=== PATIENT | male | born 1960 | race Caucasian/White ===

== ENCOUNTER 2016-10-26 16:26 | Observation (INO) | payer OTHER ==
[~2016-10-26] VITALS: Ht 167.6 cm; Wt 80.4 kg
[~2016-10-26 16:26] MED LIST: ATV1 PO; BENA40TA6 PO; MULTTAB58 PO; ZNTUNK
[2016-10-26] MEDS ORDERED: MULTI-VITAMIN INFUSION INJ 10 ML, THIAMINE HCL INJ 100 MG, FoLIC ACID INJ 1 MG in SODIU... IV STA (16:48)
[2016-10-26] MEDS ORDERED: SODIUM CHLORIDE 0.9% 1000ML 1,000 ML IV STA (16:48)
--- NOTE | 2016-10-26 16:57 | EMERGENCY ROOM VISIT NOTE ---
History Report prepared by Sorin: Vy Finney Under the Supervision of: Dr. Edson Fernandez D.O. First contact with patient: 16:37 Chief Complaint: DETOX REQUEST Stated Complaint: ALCOHOL DETOX History of Present Illness The patient is a 56 year old male who presents to the Emergency Room with complaints of an alcohol detox request. He reports he went to custodial 2 days ago for a DUI and now believes he is going through alcohol withdrawal. He complains of feeling "tired and anxious". He reports he normally drinks to one fifth of vodka every 3 to 4 times a week, for the past few years. The last time he drank alcohol was 3 days ago. He has been to rehab for alcohol abuse in the past and states the last time he went to rehab was approximately 6 months ago. The patient admits to taking daily medications for hypertension, anxiety and depression. He denies any other drug use besides alcohol. He admits in the past few years he has undergone several "life changing events" and has experienced the loss of close family members and friends. He believes these life changes have brought back his desire to drink. His primary care physician is Dr. Mays and the last time he saw him was approximately 2 months ago. The patient admits to some recent "hot flashes" but denies any recent fevers. Source of History: patient Onset: [employer] Position: other (global) Quality: other (detox request) Timing: constant Associated Symptoms: No fevers Review of Systems See HPI for pertinent positives & negatives. A total of 10 systems reviewed and were otherwise negative. Past Medical & Surgical Medical Problems: (1) Anxiety (2) Dehydration (3) Depression (4) Hypertension (5) Hypotension Social History Smoking Status: Never Smoker Alcohol Use: heavy Drug Use: none Marital Status: single Housing Status: lives alone, other ([facility]) Occupation Status: unemployed Current/Historical Medications Scheduled Amlodipine (Norvasc), 5 MG PO DAILY Chlordiazepoxide (Librium), 25 MG PO UNKNOWN Citalopram Hydrobromide (Celexa), 20 MG PO DAILY Folic Acid (Folvite), 1 MG PO DAILY Magnesium Oxide (Magnesium), 400 MG PO DAILY Multiple Vitamin (Multivitamin), 1 TAB PO DAILY Terazosin (Hytrin), 5 MG PO DAILY Thiamine Hcl (Vitamin B-1), 100 MG PO DAILY Allergies Coded Allergies: No Known Allergies (Unverified , 10/26/16) Physical Exam Vital Signs Date Time Temp Pulse Resp B/P Pulse Ox O2 Delivery O2 Flow Rate FiO2 10/26/16 18:28 102 16 135/95 96 Room Air 10/26/16 17:29 107 127/90 124 111/78 129 79/64 10/26/16 17:19 116 10/26/16 16:45 118 16 131/91 96 Room Air 10/26/16 16:33 37.1 133 18 125/88 95 Room Air Physical Exam GENERAL: Patient is awake, alert, non-anxious appearing. EYES: The pupils are round and reactive. EOMI. Bilateral conjunctival injection noted. No nystagmus appreciated. EARS, NOSE, MOUTH AND THROAT: The nose is without any evidence of any deformity. Mucous membranes are moist tongue is midline NECK: The neck is nontender and supple. RESPIRATORY: Normal respiratory effort is noted there is no evidence of wheezing rhonchi or rales CARDIOVASCULAR: Heart sounds are tachycardic and regular. No definite murmur noted to auscultation. GASTROINTESTINAL: The abdomen is soft. Bowel sounds are present in all quadrants. Abdomen is nontender MUSCULOSKELETAL/EXTREMITIES: There is no evidence of gross deformity full range of motion is noted in the hips and shoulders SKIN: There is no obvious evidence of any rash. There are no petechiae, pallor or cyanosis noted. NEUROLOGIC: Patient is awake alert and oriented x3 strength is symmetric patellar reflexes are 2+ bilaterally Medical Decision & Procedures ER Provider Diagnostic Interpretation: This X-Ray was reviewed and interpreted by myself and the radiologist. SINGLE VIEW CHEST IMPRESSION: No acute cardiopulmonary abnormality. Electronically signed by: Anton Hoang M.D. 10/26/2016 5:13 PM Laboratory Results 10/26/16 17:15 Red Blood Count 4.78, Mean Corpuscular Volume 93.7, Mean Corpuscular Hemoglobin 32.0, Mean Corpuscular Hemoglobin Concent 34.2, Mean Platelet Volume 11.2, Neutrophils (%) (Auto) 81.8, Lymphocytes (%) (Auto) 9.1, Monocytes (%) (Auto) 8.8, Eosinophils (%) (Auto) 0.1, Basophils (%) (Auto) 0.0, Neutrophils # (Auto) 6.67, Lymphocytes # (Auto) 0.74, Monocytes # (Auto) 0.72, Eosinophils # (Auto) 0.01, Basophils # (Auto) 0.00 10/26/16 17:15 Test 10/26/16 17:15 White Blood Count 8.16 K/uL (4.8-10.8) Red Blood Count 4.78 M/uL (4.7-6.1) Hemoglobin 15.3 g/dL (14.0-18.0) Hematocrit 44.8 % (42-52) Mean Corpuscular Volume 93.7 fL (80-100) Mean Corpuscular Hemoglobin 32.0 pg (25-34) Mean Corpuscular Hemoglobin Concent 34.2 g/dl (32-36) Platelet Count 160 K/uL (130-400) Mean Platelet Volume 11.2 fL (7.4-10.4) Neutrophils (%) (Auto) 81.8 % Lymphocytes (%) (Auto) 9.1 % Monocytes (%) (Auto) 8.8 % Eosinophils (%) (Auto) 0.1 % Basophils (%) (Auto) 0.0 % Neutrophils # (Auto) 6.67 K/uL (1.4-6.5) Lymphocytes # (Auto) 0.74 K/uL (1.2-3.4) Monocytes # (Auto) 0.72 K/uL (0.11-0.59) Eosinophils # (Auto) 0.01 K/uL (0-0.5) Basophils # (Auto) 0.00 K/uL (0-0.2) RDW Standard Deviation 45.4 fL (36.4-46.3) RDW Coefficient of Variation 13.2 % (11.5-14.5) Immature Granulocyte % (Auto) 0.2 % Immature Granulocyte # (Auto) 0.02 K/uL (0.00-0.02) Prothrombin Time 11.4 SECONDS (9.0-12.0) Prothromb Time International Ratio 1.1 (0.9-1.1) Activated Partial Thromboplast Time 27.5 SECONDS (21.0-31.0) Partial Thromboplastin Ratio 1.1 Anion Gap 15.0 mmol/L (3-11) Est Creatinine Clear Calc Drug Dose 52.6 ml/min Estimated GFR () 55.8 Estimated GFR (Non- 48.1 BUN/Creatinine Ratio 16.4 (10-20) Calcium Level 9.6 mg/dl (8.5-10.1) Magnesium Level 2.4 mg/dl (1.8-2.4) Total Bilirubin 1.7 mg/dl (0.2-1) Direct Bilirubin 0.4 mg/dl (0-0.2) Aspartate Amino Transf (AST/SGOT) 91 U/L (15-37) Alanine Aminotransferase (ALT/SGPT) 110 U/L (12-78) Alkaline Phosphatase 135 U/L (45-117) Total Creatine Kinase 208 U/L (39-308) Creatine Kinase MB 1.3 ng/ml (0.5-3.6) Creatine Kinase MB Ratio 0.6 (0-3.0) Troponin I < 0.015 ng/ml (0-0.045) Total Protein 8.1 gm/dl (6.4-8.2) Albumin 4.3 gm/dl (3.4-5.0) Lipase 248 U/L (73-393) Salicylates Level < 1.7 mg/dl (2.8-20) Acetaminophen Level < 2 ug/ml (10-30) Ethyl Alcohol mg/dL < 3.0 mg/dl (0-3) Laboratory results per my review. Medications Administered Medications (Trade) Dose Ordered Sig/Cam Route Start Time Stop Time Status Last Admin Dose Admin Sodium Chloride 1,000 ml @ 999 mls/hr Q1H1M STAT IV 10/26/16 16:48 10/26/16 17:48 DC 10/26/16 17:35 999 MLS/HR Multivitamins/ Thiamine HCl/ Folic Acid/Sodium Chloride (Mvi Infusion Inj/Vitamin B-1 Inj/Folvite Inj/ Nss 1000ml) 1,011.2 ml @ 500 mls/ hr Q2H2M STAT IV 10/26/16 16:48 10/26/16 18:49 DC 10/26/16 17:34 500 MLS/HR ECG Indication: toxicologic (ETOH detox request) Rate (beats per minute): 117 Rhythm: sinus tachycardia Findings: no ectopy, other (No acute ST segment abnormalities) Comparison ECG Date: no prior available ED Course 7: The patient was evaluated in room B9. A complete history and physical examination were performed. 8: Multivitamins 10 ml/Thiamine HCl 100 mg/Folic Acid 1 mg/NSS 1011.2 ml @ 500 mls/hr IV, NSS 1000 ml @ 999 mls/hr IV. 1852: I discussed the patients case with Dr. Fernandez [facility] Hospitalist. The patient will be further evaluated. Medical Decision Prior records/ancillary studies reviewed and summarized above. Nursing notes reviewed. Differential diagnosis: Etiologies such as metabolic, infection, hypo/hyperglycemia, electrolyte abnormalities, cardiac sources, intracerebral event, toxicologic, neurologic, as well as others were entertained. The patient is a 56-year-old male who presented to the emergency department for an evaluation from the [facility]. The patient was recently taken into custody for DUI. He states that his last alcoholic beverage was 3 days ago. The patient was found have unstable vital signs and this was thought to be due to alcohol withdrawal. The patient was not hypertensive but was tachycardic. He had positive orthostatic vital signs. The patient was treated with IV fluids in the emergency department. He was also given a banana bag. I discussed the patient's laboratory and radiographic studies with him. I discussed his case with the on- call [facility] hospitalist group. They've agreed to evaluate the patient in the emergency department for further management and disposition. Consults Time Called: 1849 Consulting Physician: Dr. Fernandez [facility] Hospitalist Returned Call: 1852 I discussed the patients case with Dr. Fernandez [facility] Hospitalist. The patient will be further evaluated. Impression Primary Impression: Orthostatic hypotension Additional Impressions: Tachycardia JOHN (acute kidney injury) Dehydration Scribe Attestation The scribe's documentation has been prepared under my direction and personally reviewed by me in its entirety. I confirm that the note above accurately reflects all work, treatment, procedures, and medical decision making performed by me. Departure Information Dispostion Being Evaluated By Hospitalist Referrals [facility] (PCP) Patient Instructions My [facility] Health Problem Qualifiers
[2016-10-26] MEDS ORDERED: CITA20TA9 PO (17:01)
[2016-10-26] MEDS ORDERED: AMLO-110 PO (17:01)
[2016-10-26] MEDS ORDERED: CHLO25CA10 PO (17:01)
[2016-10-26] MEDS ORDERED: THIA100T11 PO (17:01)
[2016-10-26] MEDS ORDERED: MAGN1TAB41 PO (17:01)
[2016-10-26] MEDS ORDERED: TERA5CAP PO (17:01)
[2016-10-26] MEDS ORDERED: FOLI1TAB7 PO (17:01)
--- NOTE | 2016-10-26 17:14 | DIAGNOSTIC IMAGING REPORT ---
SINGLE VIEW CHEST CLINICAL HISTORY: Generalized abdominal pain. FINDINGS: An AP, portable, upright chest radiograph is obtained. No prior studies are available for comparison at the time of dictation. The examination is degraded by portable technique, apical positioning, and patient rotation. The heart is mildly enlarged. The pulmonary vasculature is noncongested. Atherosclerotic calcification is noted in the thoracic aorta. A hiatal hernia is suspected. The lungs and pleural spaces are clear. No pneumothorax is seen. The bony thorax is grossly intact. IMPRESSION: No acute cardiopulmonary abnormality. Electronically signed by: Anton Hoang M.D. 10/26/2016 5:13 PM Dictated Date/Time: 10/26/2016 5:12 PM
[2016-10-26 17:26] LABS: COMPLETE YES; EOS % 0.1 %; HEMATOCRIT 44.8 % (42-52); IG% 0.2 %; LYMPH % 9.1 %; LYMPH ABS # 0.74 K/uL (1.2-3.4); MEAN CELL VOLUME 93.7 fL (80-100); MEAN CORPUSCULAR HGB CONC 34.2 g/dl (32-36); MEAN PLATELET VOLUME 11.2 fL (7.4-10.4); MONO % 8.8 %; NEUT % 81.8 %; PLATELET COUNT 160 K/uL (130-400); RED BLOOD COUNT 4.78 M/uL (4.7-6.1); WHITE BLOOD COUNT 8.16 K/uL (4.8-10.8)
[2016-10-26 17:34] LABS: INR 1.1 (0.9-1.1); PARTIAL THROMBOPLASTIN RATIO 1.1; PROTHROMBIN TIME (PATIENT) 11.4 SECONDS (9.0-12.0)
[2016-10-26 17:46] LABS: ALT/SGPT 110 U/L (12-78); AST/SGOT 91 U/L (15-37); BLOOD UREA NITROGEN 26 mg/dl (7-18); BUN/CREATININE RATIO 16.4 (10-20); CALCIUM 9.6 mg/dl (8.5-10.1); CARBON DIOXIDE 21 mmol/L (21-32); CHLORIDE 101 mmol/L (98-107); GLUCOSE 87 mg/dl (70-99); MAGNESIUM 2.4 mg/dl (1.8-2.4); POTASSIUM 3.6 mmol/L (3.5-5.1); SODIUM 137 mmol/L (136-145)
[2016-10-26 17:49] LABS: ALKALINE PHOSPHATASE 135 U/L (45-117); CKMB/CK RATIO 0.6 (0-3.0)
[2016-10-26 18:28] LABS: ACETAMINOPHEN < 2 ug/ml (10-30)
[2016-10-26] MEDS ORDERED: ALUMINUM/MAGNESIUM/SIMETH (MAALOX MAX) 30 ML UDC PO PRN (19:15)
[2016-10-26] MEDS ORDERED: POLYETHYLENE (MIRALAX) 17 GM PACK PO PRN (19:15)
[2016-10-26] MEDS ORDERED: ONDANSETRON INJ 2 MG/ML 2 ML VIAL IV PRN (19:15)
[2016-10-26] MEDS ORDERED: MAGNESIUM HYDROXIDE SUSP 30 ML UDC PO PRN (19:15)
--- NOTE | 2016-10-26 19:23 | History and Physical ---
History & Physical Date & Time of Service: October 26, 2016 at 19:22 Chief Complaint: Alcohol Detox Primary Care Physician: J[facility] Social History Smoking Status: Never Smoker Drug Use: none Marital Status: single Occupational Status: unemployed Multi-Drug Resistant Organisms History of MDRO: No Allergies Coded Allergies: No Known Allergies (Unverified , 10/26/16) Home Medications Scheduled Amlodipine (Norvasc), 5 MG PO DAILY Chlordiazepoxide (Librium), 25 MG PO UNKNOWN Citalopram Hydrobromide (Celexa), 20 MG PO DAILY Folic Acid (Folvite), 1 MG PO DAILY Magnesium Oxide (Magnesium), 400 MG PO DAILY Multiple Vitamin (Multivitamin), 1 TAB PO DAILY Terazosin (Hytrin), 5 MG PO DAILY Thiamine Hcl (Vitamin B-1), 100 MG PO DAILY Physical Exam Vital Signs Date Time Temp Pulse Resp B/P Pulse Ox O2 Delivery O2 Flow Rate FiO2 10/26/16 18:28 102 16 135/95 96 Room Air 10/26/16 17:29 107 127/90 124 111/78 129 79/64 10/26/16 17:19 116 10/26/16 16:45 118 16 131/91 96 Room Air 10/26/16 16:33 37.1 133 18 125/88 95 Room Air Diagnostics Laboratory Results Results Past 24 Hours Test 10/26/16 17:15 Range/Units White Blood Count 8.16 4.8-10.8 K/uL Red Blood Count 4.78 4.7-6.1 M/uL Hemoglobin 15.3 14.0-18.0 g/dL Hematocrit 44.8 42-52 % Mean Corpuscular Volume 93.7 80-100 fL Mean Corpuscular Hemoglobin 32.0 25-34 pg Mean Corpuscular Hemoglobin Concent 34.2 32-36 g/dl Platelet Count 160 130-400 K/uL Mean Platelet Volume 11.2 7.4-10.4 fL Neutrophils (%) (Auto) 81.8 % Lymphocytes (%) (Auto) 9.1 % Monocytes (%) (Auto) 8.8 % Eosinophils (%) (Auto) 0.1 % Basophils (%) (Auto) 0.0 % Neutrophils # (Auto) 6.67 1.4-6.5 K/uL Lymphocytes # (Auto) 0.74 1.2-3.4 K/uL Monocytes # (Auto) 0.72 0.11-0.59 K/uL Eosinophils # (Auto) 0.01 0-0.5 K/uL Basophils # (Auto) 0.00 0-0.2 K/uL RDW Standard Deviation 45.4 36.4-46.3 fL RDW Coefficient of Variation 13.2 11.5-14.5 % Immature Granulocyte % (Auto) 0.2 % Immature Granulocyte # (Auto) 0.02 0.00-0.02 K/uL Prothrombin Time 11.4 9.0-12.0 SECONDS Prothromb Time International Ratio 1.1 0.9-1.1 Activated Partial Thromboplast Time 27.5 21.0-31.0 SECONDS Partial Thromboplastin Ratio 1.1 Sodium Level 137 136-145 mmol/L Potassium Level 3.6 3.5-5.1 mmol/L Chloride Level 101 98-107 mmol/L Carbon Dioxide Level 21 21-32 mmol/L Anion Gap 15.0 3-11 mmol/L Blood Urea Nitrogen 26 7-18 mg/dl Creatinine 1.60 0.60-1.40 mg/dl Est Creatinine Clear Calc Drug Dose 52.6 ml/min Estimated GFR () 55.8 Estimated GFR (Non- 48.1 BUN/Creatinine Ratio 16.4 10-20 Random Glucose 87 70-99 mg/dl Calcium Level 9.6 8.5-10.1 mg/dl Magnesium Level 2.4 1.8-2.4 mg/dl Total Bilirubin 1.7 0.2-1 mg/dl Direct Bilirubin 0.4 0-0.2 mg/dl Aspartate Amino Transf (AST/SGOT) 91 15-37 U/L Alanine Aminotransferase (ALT/SGPT) 110 12-78 U/L Alkaline Phosphatase 135 45-117 U/L Total Creatine Kinase 208 39-308 U/L Creatine Kinase MB 1.3 0.5-3.6 ng/ml Creatine Kinase MB Ratio 0.6 0-3.0 Troponin I < 0.015 0-0.045 ng/ml Total Protein 8.1 6.4-8.2 gm/dl Albumin 4.3 3.4-5.0 gm/dl Lipase 248 73-393 U/L Salicylates Level < 1.7 2.8-20 mg/dl Acetaminophen Level < 2 10-30 ug/ml Ethyl Alcohol mg/dL < 3.0 0-3 mg/dl Impression Assessment and Plan obs #[id number] VTE Prophylaxis VTE Risk Assessment Done? Y/N: Yes Risk Level: Moderate
[2016-10-26] MEDS ORDERED: IV FLUIDS COMPLETED PRN (19:30)
[2016-10-26 20:10] VITALS: O2SAT 96
--- NOTE | 2016-10-26 20:32 | HISTORY & PHYSICAL EXAMINATION ---
DATE OF ADMISSION: 10/26/2016 CHIEF COMPLAINT: Concern on alcohol withdrawal. HISTORY OF PRESENT ILLNESS: The patient is a very pleasant 56-year-old male who was sent down from [facility] because of the concern that he may be withdrawing from alcohol. He himself denies tachycardia or shakiness or tremors or anything of that sort. His last drink was about 3 days ago. However, he does note that he feels weak and lightheaded. He was apparently somewhat hypotensive earlier. He notes especially whenever he stands up, he gets lightheaded and he is very thirsty now, although apparently in large part related to acute recent stressors. He has not been eating or drinking as much the last several days as his typical and he does take several antihypertensive meds. REVIEW OF SYSTEMS: Positive for low volume, somewhat dark urine. REVIEW OF SYSTEMS: Otherwise negative except for as above. PAST MEDICAL HISTORY: Includes hypertension, anxiety and alcohol abuse. MEDICATIONS: He believes amlodipine and terazosin for his blood pressure, uncertain doses, Celexa for his depression, uncertain dose, and Ativan 1 mg tabs, he notes generally he at least takes 1 a day, up to maybe 4 a day, it is unclear exactly how long he has been on this. He notes the shelter physician was going to try to actively wean this. He notes whenever he does not take it for a while, he starts to feel more anxious. SURGICAL HISTORY: None. SOCIAL HISTORY: He is a fairly heavy drinker, last drink about 3 days ago. No tobacco, no other drugs He is currently incarcerated. FAMILY HISTORY: Cancer in both of his parents. ALLERGIES: No known drug allergies. PHYSICAL EXAMINATION: VITAL SIGNS: Temperature 37.1, pulse 133, blood pressure 125/88; however, he does drop orthostatically to as low as 79/64, respiratory rate 18, 95% on room air. GENERAL: He is awake, alert, oriented x3, pleasant, in no acute distress. HEENT: Normocephalic, atraumatic. Mucous membranes are dry. CARDIOVASCULAR: Regular. No rubs, murmurs or gallops. LUNGS: Clear to auscultation bilaterally. No rales, rhonchi or wheezes, with good effort. ABDOMEN: Soft, nondistended, nontender. No masses or organomegaly. EXTREMITIES: Without cyanosis, clubbing or edema. No calf tenderness. SKIN: Shows no rashes, no pallor or icterus. NEUROLOGIC: Shows cranial nerves II-XII to be grossly intact. Gross motor and sensory are intact. He shows no tremors. MENTAL STATE: Shows good recent and remote recall, somewhat flat, mildly anxious mood and affect. MUSCULOSKELETAL: Yields no gross lesions. His EKG was sinus tachycardia with some nonspecific T-wave abnormalities. LABORATORY AND DIAGNOSTICS: CBC shows a white count of 8.16, hemoglobin 15.3, platelets 160. Complete metabolic panel with sodium 137, potassium 3.6, chloride 101, CO2 21, BUN 26, creatinine 1.6, calcium 9.6, glucose 87, mag 2.4, total bilirubin 1.7 with a direct of 0.4, AST 91, ALT 110, alkaline phosphatase 135, CK total of 208 with an MB of 1.3, troponin of less than 0.015. Total protein 8.1, albumin 4.3. Lipase 248. PT of 11.4, PTT 27.5. Salicylates, acetaminophen and ethyl alcohol currently negative. ASSESSMENT AND PLAN: 1. Alcohol abuse. While he shows transaminitis, fortunately he is not showing any withdrawal. He is about 3 days after his last drink, so likely he is passing through the window of where it would be of much of any likelihood. We will be keeping him for the dehydration, hypotension, and renal insufficiency, and so we will observe for any worsening signs or symptoms of alcohol withdrawal. See below otherwise. 2. Dehydration with acute renal insufficiency. His baseline creatinine appears to be 1.2, it is up to 1.6. He feels very thirsty. His mucous membranes are dry. He has not been eating and drinking as well. His urine is dark and concentrated by his history. We will rehydrate him aggressively, hold his antihypertensives until he is better hydrated, and then follow up orthostatics in the morning. 3. Transaminitis is probably from his alcohol abuse. We will follow up his CMP tomorrow to make sure it is not going up and then otherwise he can be followed as an outpatient until normalization. 4. Alcohol abuse. Continue thiamine, folate, multivitamin. Again, as above, he is not really showing any active withdrawal. 5. Anxiety. Continue his Celexa. Try to continue to reduce Ativan, we will drop it 0.25 q. 6 p.r.n. I had an extensive discussion with the patient on how benzodiazepines can actually create anxiety whenever somebody has a physical dependency to them and starts to withdraw and that it feels almost exactly like anxiety. He relates an extremely similar history to this and then notes that the Ativan has been "like a miracle drug to him" but understands that it is likely that he has got a degree of withdrawal symptoms that are causing his acuity of anxiety. 6. Deep venous thrombosis prophylaxis, heparin subcu. 7. Hypertension. Hold his home meds until he is more stabilized in terms of his fluid status.
[2016-10-26 20:44] VITALS: BP 158/110; PULSE 110; TEMP 36.7; O2SAT 97
[2016-10-26] MEDS: SODIUM CHLOR 0.45% + 20MEQ KCL 1,000 ML IV SCH (22:16)
[2016-10-26] MEDS: HEPARIN SOD 5000 UNIT/0.5 ML CARP SQ SCH (22:24)
[2016-10-26] MEDS ORDERED: NURSING VERBAL MED ORDER ONE (22:45)
[2016-10-26 22:53] VITALS: BP 128/82; PULSE 86; TEMP 36.9; O2SAT 95
[2016-10-27] MEDS: LORAZEPAM 0.5 MG TAB PO PRN ×2 (00:20→07:16)
[2016-10-27] MEDS: ACETAMINOPHEN 325 MG TAB PO PRN ×2 (00:21→07:16)
[2016-10-27] MEDS: SODIUM CHLOR 0.45% + 20MEQ KCL 1,000 ML IV SCH ×2 (04:41→11:19)
[2016-10-27 04:49] VITALS: BP 128/82; PULSE 86; TEMP 36.9; Ht 167.6 cm; Wt 80.4 kg
[2016-10-27 07:11] VITALS: BP 125/83; PULSE 74; TEMP 36.4; O2SAT 98
[2016-10-27] MEDS: HEPARIN SOD 5000 UNIT/0.5 ML CARP SQ SCH (07:52)
[2016-10-27 07:53] LABS: ALB/GLOB RATIO 1.1 (0.9-2); BUN/CREATININE RATIO 20.4 (10-20); CALCIUM 8.5 mg/dl (8.5-10.1); CREATININE 0.81 mg/dl (0.60-1.40); POTASSIUM 3.7 mmol/L (3.5-5.1)
[2016-10-27] MEDS ORDERED: THIAMINE HCL 100 MG TAB PO SCH (09:00)
[2016-10-27] MEDS ORDERED: MULTIVITAMIN TAB PO SCH (09:00)
[2016-10-27] MEDS ORDERED: CITALOPRAM 20 MG TAB PO SCH (09:00)
[2016-10-27] MEDS ORDERED: MAGNESIUM OXIDE 400 MG TAB PO SCH (09:00)
--- NOTE | 2016-10-27 11:08 | Discharge Instructions ---
Discharge Instructions Date of Service October 27, 2016. Admission Reason for Admission: Dehydration, Hypotension Discharge Discharge Diagnosis / Problem: Dehydration, acute kidney injury, hypotension Discharge Goals Goal(s): Decrease discomfort, Improve function, Increase independence, Improve disease control, Diagnostic testing, Therapeutic intervention Activity Recommendations Activity Limitations: resume your previous activity Exercise/Sports Limitations: none Shower/Bathe: no limitations . Instructions / Follow-Up Instructions / Follow-Up Patient stable for discharge to correctional facility No new medication changes at this time If worsening confusion, weakness, tremors, low blood pressure please report to ER Current Hospital Diet Patient's current hospital diet: Regular Diet Discharge Diet Recommended Diet: Regular Diet Pending Studies Studies pending at discharge: no Medical Emergencies . Who to Call and When: Medical Emergencies: If at any time you feel your situation is an emergency, please call 911 immediately. . Non-Emergent Contact Non-Emergency issues call your: Primary Care Provider Call Non-Emergent contact if: you have a fever, your pain is worsening . . "Provider Documentation" section prepared by Jason Esteves. . VTE Core Measure Inpt VTE Proph given/why not?: Unfractionated heparin SQ
--- NOTE | 2016-10-27 11:09 | Discharge Summary ---
Discharge Summary Date of Service October 27, 2016. Discharge Summary Admission Date: October 26, 2016 at 19:15 Discharge Date: October 27, 2016 Discharge Disposition: Acute care facility (Custodial) Principal Diagnosis: Alcohol withdrawal, acute kidney injury, hypotension Medication Reconciliation Continued Medications: Amlodipine (Norvasc) 5 Mg Tab 5 MG PO DAILY, TAB Citalopram Hydrobromide (Celexa) 20 Mg Tab 20 MG PO DAILY, TAB Folic Acid (Folvite) 1 Mg Tab 1 MG PO DAILY, TAB Magnesium Oxide (Magnesium) 400 Mg Tab 400 MG PO DAILY Multiple Vitamin (Multivitamin) 1 Tab Tab 1 TAB PO DAILY, TAB Terazosin (Hytrin) 5 Mg Cap 5 MG PO DAILY, CAP Thiamine Hcl (Vitamin B-1) 100 Mg Tab 100 MG PO DAILY, TAB Discontinued Medications: Chlordiazepoxide (Librium) 25 Mg Cap 25 MG PO UNKNOWN, CAP Discharge Exam Review of Systems: Constitutional: No chills, No fever Respiratory: No cough, No sputum Cardiovascular: No chest pain, No edema, No orthopnea Abdomen: No diarrhea, No nausea, No pain, No vomiting Musculoskeletal: No joint pain, No muscle pain Genitourinary - Male: No dysuria, No hematuria, No urinary frequency Neurologic: No numbness/tingling, No paralysis, No weakness Psychiatric: No anhedonism, No anxiety Physical Exam: General Appearance: WD/WN, no apparent distress Neck: supple, no adenopathy Respiratory/Chest: lungs clear, normal breath sounds, no respiratory distress Cardiovascular: regular rate, rhythm, no edema, no gallop Abdomen / GI: normal bowel sounds, non tender, soft Extremities: no calf tenderness, normal capillary refill, no pedal edema Neurologic/Psychiatric: alert, normal mood/affect, oriented x 3 Skin: normal color, warm/dry Hospital Course Alcohol abuse. While he shows transaminitis, fortunately he is not showing any withdrawal. He is about 3 days after his last drink, so likely he is passing through the window of where it would be of much of any likelihood. No tremors, palpitations, or confusion noted. Improved with hydration and stable for discharge. Dehydration with acute renal insufficiency. His baseline creatinine appears to be 1.2, it is up to 1.6. He feels very thirsty. His mucous membranes are dry. He has not been eating and drinking as well. His urine is dark and concentrated by his history. Resolved with hydration. Transaminitis is probably from his alcohol abuse. Improved with hydration. Alcohol abuse. Continue thiamine, folate, multivitamin. Again, as above, he is not really showing any active withdrawal. Hypotension resolved Anxiety. Continue his Celexa. Try to continue to reduce Ativan, we will drop it 0.25 q. 6 p.r.n. I had an extensive discussion with the patient on how benzodiazepines can actually create anxiety whenever somebody has a physical dependency to them and starts to withdraw and that it feels almost exactly like anxiety. He relates an extremely similar history to this and then notes that the Ativan has been "like a miracle drug to him" but understands that it is likely that he has got a degree of withdrawal symptoms that are causing his acuity of anxiety. Deep venous thrombosis prophylaxis, heparin subcu. Hypertension. Hold his home meds until he is more stabilized in terms of his fluid status. Total Time Spent: Greater than 30 minutes This includes examination of the patient, discharge planning, medication reconciliation, and communication with other providers. Discharge Instructions Please refer to the electronic Patient Visit Report (Discharge Instructions) for additional information.
[2016-10-27 12:47] VITALS: BP 125/83; PULSE 74; TEMP 36.4; O2SAT 98
== END 2016-10-27 13:14 | disposition home or self-care (01) ==
LOC: ENRESERVTM → ENRESERVDT → C.EDB 16:29 → C.MS2W 19:15
PROVIDERS: ADMIT Family Medicine; ATTEND Family Medicine
DX: F10.239 Alcohol dependence with withdrawal, unspecified (principal); I95.1 Orthostatic hypotension; N17.9 Acute kidney failure, unspecified; I10 Essential (primary) hypertension; F32.9 Major depressive disorder, single episode, unspecified; F41.9 Anxiety disorder, unspecified; Z79.899 Other long term (current) drug therapy

== ENCOUNTER 2022-11-12 14:16 | Inpatient (IN) ==
[2022-11-12] MEDS ORDERED: CEFEPIME 2,000 MG/20 ML VIAL IV STA (14:19)
[2022-11-12] MEDS ORDERED: LORazepam 2 MG/1 ML VIAL IV STA ×2 (14:19→17:18)
[2022-11-12] MEDS ORDERED: SODIUM CHLORIDE 0.9% 1000ML 1,000 ML IV SCH (14:30)
[2022-11-12 14:44] LABS: Basophils # (auto) 0.02 K/uL (0-0.2); Basophils % (auto) 0.3 %; Eosinophils # (auto) 0.05 K/uL (0-0.50); Eosinophils % (auto) 0.7 %; Hematocrit (blood only) 38.2 % (42.0-52.0); Hemoglobin 12.6 g/dl (14.0-18.0); Immature Granulocytes # (auto) 0.03 K/uL (0.01-0.20); Immature Granulocytes % (auto) 0.4 %; Lymphocytes # (auto) 2.71 K/uL (1.2-3.4); Lymphocytes % (auto) 36.7 %; Mean Corpuscular Hemoglobin 29.6 pg (25.0-34.0); Mean Corpuscular Volume 89.7 fL (80.0-100.0); Mean Platelet Volume 10.1 fL (9.4-12.4); Monocytes # (auto) 0.52 K/uL (0.11-0.59); Neutrophils # (auto) 4.05 K/uL (1.40-6.50); Neutrophils % (auto) 54.9 %; Platelet Count 242 K/uL (130-400); RDW Coefficient of Variation 13.9 % (11.5-14.5); RDW Standard Deviation 45.3 fL (36.4-46.3); Red Blood Count 4.26 M/uL (4.70-6.10); White Blood Count 7.38 K/ul (4.8-10.8)
[2022-11-12] MEDS: SODIUM CHLORIDE 0.9% 1000ML 1,000 ML IV SCH ×2 (14:44→15:54)
--- NOTE | 2022-11-12 14:49 | Emergency Department Note ---
Impression & Plan Altered mental status, Metabolic acidosis ED Provider Note INFORMANT: EMS ED PROVIDER(S): Rm Armenta DO CHIEF COMPLAINT: Altered mental status PLAN: Disposition: Admission Outpatient prescription management: none Discussion with: I spoke with the hospitalist, who will see the patient for admi ssion/observation and further evaluation and consultation. MEDICAL DECISION MAKING: This is a 62-year-old male who presents to the ED with a chief complaint of an alteration in mental status. The patient came to EMS noticed when a salesman went to his door and he answered the door disheveled. His house was in disarray. The patient seems to be acting odd and confused. EMS arrived on scene. They reported that his house was very hot. He was not responding appropriately. He was combative for EMS. Prehospital blood sugar was 149. EMS provided ketamine 300 mg IM in order to get him here. They were assisted by police. The patient is not cooperative here. He is not responding appropriately. Does not answer questions. Head is without obvious trauma. Mucous membranes are slightly dry. Lungs are clear. Tachycardic. Abdomen is soft and nontender. No rashes. Moves all 4 extremities with purpose, but not to command. Vital signs reveal tachycardia with a heart rate of 140. Afebrile. Per police, the patient does have known drug history. A EKG shows a sinus tach at a rate of 136. Chest x-ray did not show acute process. CT scan of the brain did not show acute process. CBC showed no anemia or leukocytosis. The kidney function was normal. Anion gap was elevated at 20. Potassium is 3.2. Glucose is 158. Troponin was negative. Tylenol was 7. Salicylates were negative. Alcohol was negative. Procalcitonin was negative. Marijuana was positive on the talk screen. A VBG shows a pH of 7.29 with a P CO2 of 29. This could suggest a metabolic acidosis. The lactic acid was elevated at 10. TSH was normal. Bio fire was negative. The patient was treated with 3 L of normal saline IV. He was empirically given some IV cefepime. He was also initially restrained because of his combativeness when he first arrived however this was removed during his ED stay. He was given 1 mg IV lorazepam. The patient be seen by the hospitalist for further evaluation and care. Triage Nursing notes reviewed. Vital Signs: reviewed Prior /Outside records reviewed: none Differential diagnosis: Differential includes acute cardiac dysrhythmia, microinfarction, CVA, TIA, dehydration, anemia, electrolyte disturbance, seizure, trauma, intracranial bleeding, acute vascular catastrophe, thoracic aortic dissection, PE, abdominal aortic aneurysm rupture, infection, hypoglycemia, overdose, trauma. Diagnostics, as interpreted by me: 12 lead ECG: Sinus tach at a rate of 136. No ST elevation. No PVCs. Normal QTc Cardiac Monitoring ordered: Sinus rhythm in the 1 teens to 130s. Medical decision rules: none Imaging studies: Chest x-ray: No acute disease. No pneumonia. Procedures: none. Critical care: none. HPI: See MDM above. PAST MEDICAL HISTORY: See Below PAST SURGICAL HISTORY: See Below SOCIAL HISTORY: See Below HOME MEDICATIONS:See Below ALLERGIES: See Below VITALS: See Below PHYSICAL EXAMINATION: See MDM for positive findings otherwise unremarkable. CONSTITUTIONAL/VITAL SIGNS: Reviewed GENERAL:done as appropriate INTEGUMENTARY: done as appropriate HEAD: done as appropriate EYES: done as appropriate RESPIRATORY: done as appropriate CARDIOVASCULAR:done as appropriate GI/ABDOMEN:done as appropriate EXTREMITIES: done as appropriate NEUROLOGICAL: done as appropriate PSYCHIATRIC:done as appropriate MUSCULOSKELETAL:done as appropriate TRIAGE NURSING DOCUMENTATION REVIEWED. Past Med/Surg History Medical History Cervical radiculopathy Cervical spondylosis History of substance abuse Left arm pain Neural foraminal stenosis of cervical spine Strain of neck muscle Surgical History S/P excision of lipoma (05/24/21) Dr. 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 Feels Safe at Home: Yes during the past year weight has: decreased > 10 lbs Allergies Allergies Allergy/AdvReac Type Severity Reaction Status Date / Time No Known Allergies Allergy Verified 09/13/22 14:10 Home Meds Home Medications Medication Instructions Recorded Confirmed amlodipine 5 mg tablet 5 mg PO DAILY 05/06/21 09/13/22 lorazepam 1 mg tablet 1 mg PO TID PRN 05/06/21 09/13/22 mqqcvtqqotny-kol-nwaho acid-vit 1 tab PO DAILY 05/06/21 09/13/22 K-lycop 400 mcg-20 mcg-370 mcg tablet (One-A-Day Men's 50 Plus (with vitamin K)) tramadol 50 mg tablet 100 mg PO Q6H 09/13/22 09/13/22 Previous Rx's Medication Instructions Recorded tamsulosin 0.4 mg capsule 0.4 mg PO DAILY #90 caps 01/26/22 Results & Data (ED) Vital Signs Vital Signs - 24 hr 11/12/22 14:19 11/12/22 15:03 11/12/22 14:27 Temperature 36.8 C Temperature Source Oral Pulse Rate 141 H 142 H 140 H Pulse Rate from SpO2 Sensor 140 H Pulse Rhythm Respiratory Rate 16 15 Respiratory Effort / Characteristics Non-Labored Spontaneous Respiratory Depth Normal Blood Pressure 117/82 Blood Pressure Mean 93 Pulse Oximetry 97 98 Oxygen Delivery Method Room Air Sepsis Recent Fever Within 48 Hours No Sepsis New/Unexplained Change in Mental Status N/A Sepsis Action Taken by Nursing No Action Required 11/12/22 14:30 11/12/22 14:30 11/12/22 15:00 Temperature Temperature Source Pulse Rate 140 H Pulse Rate from SpO2 Sensor Pulse Rhythm Respiratory Rate 12 Respiratory Effort / Characteristics Respiratory Depth Blood Pressure 128/78 146/84 H Blood Pressure Mean 94 104 Pulse Oximetry Oxygen Delivery Method Sepsis Recent Fever Within 48 Hours Sepsis New/Unexplained Change in Mental Status Sepsis Action Taken by Nursing 11/12/22 15:00 11/12/22 15:16 11/12/22 15:15 Temperature Temperature Source Pulse Rate 135 H 135 H 128 H Pulse Rate from SpO2 Sensor 137 H 128 H Pulse Rhythm Regular Respiratory Rate 28 H 20 19 Respiratory Effort / Characteristics Respiratory Depth Blood Pressure 129/76 Blood Pressure Mean 93 Pulse Oximetry 97 97 95 Oxygen Delivery Method Room Air Sepsis Recent Fever Within 48 Hours Sepsis New/Unexplained Change in Mental Status Sepsis Action Taken by Nursing 11/12/22 15:15 11/12/22 15:30 11/12/22 15:45 Temperature Temperature Source Pulse Rate 120 H 113 H Pulse Rate from SpO2 Sensor 120 H 111 H Pulse Rhythm Respiratory Rate 18 23 Respiratory Effort / Characteristics Respiratory Depth Blood Pressure 129/76 125/77 109/66 Blood Pressure Mean 93 93 80 Pulse Oximetry 94 96 Oxygen Delivery Method Sepsis Recent Fever Within 48 Hours Sepsis New/Unexplained Change in Mental Status Sepsis Action Taken by Nursing Laboratory Data 11/12/22 14:25 11/12/22 14:25 Lab Results 11/12/22 11/12/22 11/12/22 Range/Units 14:25 14:25 14:25 WBC 7.38 (4.8-10.8) K/ul RBC 4.26 L (4.70-6.10) M/uL Hgb 12.6 L (14.0-18.0) g/dl Hct 38.2 L (42.0-52.0) % MCV 89.7 (80.0-100.0) fL MCH 29.6 (25.0-34.0) pg MCHC 33.0 (32.0-36.0) g/dL RDW Std Deviation 45.3 (36.4-46.3) fL RDW Coeff of Ruddy 13.9 (11.5-14.5) % Plt Count 242 (130-400) K/uL MPV 10.1 (9.4-12.4) fL Immature Gran % (Auto) 0.4 % Neut % (Auto) 54.9 % Lymph % (Auto) 36.7 % [place] % (Auto) 7.0 % Eos % (Auto) 0.7 % Baso % (Auto) 0.3 % Neut # (Auto) 4.05 (1.40-6.50) K/uL Lymph # (Auto) 2.71 (1.2-3.4) K/uL [place] # (Auto) 0.52 (0.11-0.59) K/uL Eos # (Auto) 0.05 (0-0.50) K/uL Baso # (Auto) 0.02 (0-0.2) K/uL Immature Gran # (Auto) 0.03 (0.01-0.20) K/uL PT (9.0-12.0) Seconds INR (0.9-1.1) APTT (21.0-31.0) Seconds PTT Ratio VBG pH (7.36-7.41) VBG pCO2 (38-50) mmHg VBG pO2 mmHg VBG HCO3 mmol/L VBG O2 Saturation % VBG Base Excess mEq/L Sodium 137 (136-145) mmol/L Potassium 3.2 L (3.5-5.1) mmol/L Chloride 106 (98-107) mmol/L Carbon Dioxide 11 L (21-32) mmol/L Anion Gap 20 H (3-11) BUN 13 (6-23) mg/dl Creatinine 1.33 (0.6-1.4) mg/dl Est Cr Clr Drug Dosing Not Reportable Est GFR ( Amer) 66.9 ml/min Est GFR (Non-Af Amer) 57.7 ml/min BUN/Creatinine Ratio 9.8 L (10-20) Glucose 158 H (70-99(Fasting)) mg/dl Lactate (0.4-2.0) mmol/L Calcium 8.3 L (8.6-10.3) mg/dl Magnesium 2.4 (1.7-2.4) mg/dl Total Bilirubin 0.6 (0.2-1.0) mg/dl Direct Bilirubin 0.1 (0-0.2) mg/dl AST 18 (13-39) U/L ALT 16 (7-52) U/L Alkaline Phosphatase 64 (34-104) U/L Troponin I High Sens 4.0 (0-20) pg/ml Total Protein 6.4 (6.0-8.3) gm/dl Albumin 3.9 (3.4-5.0) gm/dl Procalcitonin < 0.05 (0-0.5) ng/ml Urine Color Urine Appearance (Clear) Urine pH (4.5-7.5) Ur Specific Stanley (1.000-1.030) Urine Protein (Negative) Urine Glucose (UA) (Negative) Urine Ketones (Negative) Urine Blood (Negative) Urine Nitrite (Negative) Urine Bilirubin (Negative) Urine Urobilinogen (Negative) Ur Leukocyte Esterase (Negative) Urine WBC (Auto) (0-5) /hpf Urine RBC (Auto) (0-4) /hpf U Hyaline Cast (Auto) (0-5) /lpf U Epithel Cells (Auto) (0-5) /lpf Urine Bacteria (Auto) (Negative) Salicylates (3.0-30) mg/dl Urine Opiates Screen (Neg) Ur Methadone, Qual (Neg) Acetaminophen (10-30) ug/ml Urine Barbiturates (Neg) Ur Phencyclidine (PCP) (Neg) U Amphetamin/Meth Scrn (Neg) MDMA (Ecstasy) Screen (Neg) U Benzodiazepines Scrn (Neg) Ur Cocaine Metabolite (Neg) U Marijuana (THC) Screen (Neg) Ethyl Alcohol mg/dL (<10.0) mg/dl Adenovirus (PCR) (NotDetected) B. pertussis DNA (PCR) (NotDetected) B.parapertussis DNA PCR (NotDetected) C. pneumoniae DNA (PCR) (NotDetected) Coronavirus OC43 (PCR) (NotDetected) Coronavirus HKU1 (PCR) (NotDetected) Coronavirus 229E (PCR) (NotDetected) SARS-CoV-2 (PCR) (NotDetected) Coronavirus NL63 (PCR) (NotDetected) Human Metapneumovir PCR (NotDetected) Influenza Type A (PCR) (NotDetected) Influenza Type B (PCR) (NotDetected) M. pneumoniae (PCR) (NotDetected) Parainfluenza 1 (PCR) (NotDetected) Parainfluenza 2 (PCR) (NotDetected) Parainfluenza 3 (PCR) (NotDetected) Parainfluenza 4 (PCR) (NotDetected) RSV (PCR) (NotDetected) Entero/Rhino (PCR) (NotDetected) 11/12/22 11/12/22 11/12/22 Range/Units 14:25 14:25 14:25 WBC (4.8-10.8) K/ul RBC (4.70-6.10) M/uL Hgb (14.0-18.0) g/dl Hct (42.0-52.0) % MCV (80.0-100.0) fL MCH (25.0-34.0) pg MCHC (32.0-36.0) g/dL RDW Std Deviation (36.4-46.3) fL RDW Coeff of Ruddy (11.5-14.5) % Plt Count (130-400) K/uL MPV (9.4-12.4) fL Immature Gran % (Auto) % Neut % (Auto) % Lymph % (Auto) % [place] % (Auto) % Eos % (Auto) % Baso % (Auto) % Neut # (Auto) (1.40-6.50) K/uL Lymph # (Auto) (1.2-3.4) K/uL [place] # (Auto) (0.11-0.59) K/uL Eos # (Auto) (0-0.50) K/uL Baso # (Auto) (0-0.2) K/uL Immature Gran # (Auto) (0.01-0.20) K/uL PT 11.5 (9.0-12.0) Seconds INR 1.1 (0.9-1.1) APTT 23.9 (21.0-31.0) Seconds PTT Ratio 0.8 VBG pH (7.36-7.41) VBG pCO2 (38-50) mmHg VBG pO2 mmHg VBG HCO3 mmol/L VBG O2 Saturation % VBG Base Excess mEq/L Sodium (136-145) mmol/L Potassium (3.5-5.1) mmol/L Chloride (98-107) mmol/L Carbon Dioxide (21-32) mmol/L Anion Gap (3-11) BUN (6-23) mg/dl Creatinine (0.6-1.4) mg/dl Est Cr Clr Drug Dosing Est GFR ( Amer) ml/min Est GFR (Non-Af Amer) ml/min BUN/Creatinine Ratio (10-20) Glucose (70-99(Fasting)) mg/dl Lactate (0.4-2.0) mmol/L Calcium (8.6-10.3) mg/dl Magnesium (1.7-2.4) mg/dl Total Bilirubin (0.2-1.0) mg/dl Direct Bilirubin (0-0.2) mg/dl AST (13-39) U/L ALT (7-52) U/L Alkaline Phosphatase (34-104) U/L Troponin I High Sens (0-20) pg/ml Total Protein (6.0-8.3) gm/dl Albumin (3.4-5.0) gm/dl Procalcitonin (0-0.5) ng/ml Urine Color Urine Appearance (Clear) Urine pH (4.5-7.5) Ur Specific Stanley (1.000-1.030) Urine Protein (Negative) Urine Glucose (UA) (Negative) Urine Ketones (Negative) Urine Blood (Negative) Urine Nitrite (Negative) Urine Bilirubin (Negative) Urine Urobilinogen (Negative) Ur Leukocyte Esterase (Negative) Urine WBC (Auto) (0-5) /hpf Urine RBC (Auto) (0-4) /hpf U Hyaline Cast (Auto) (0-5) /lpf U Epithel Cells (Auto) (0-5) /lpf Urine Bacteria (Auto) (Negative) Salicylates < 3.0 L (3.0-30) mg/dl Urine Opiates Screen (Neg) Ur Methadone, Qual (Neg) Acetaminophen 7 L (10-30) ug/ml Urine Barbiturates (Neg) Ur Phencyclidine (PCP) (Neg) U Amphetamin/Meth Scrn (Neg) MDMA (Ecstasy) Screen (Neg) U Benzodiazepines Scrn (Neg) Ur Cocaine Metabolite (Neg) U Marijuana (THC) Screen (Neg) Ethyl Alcohol mg/dL < 10.0 (<10.0) mg/dl Adenovirus (PCR) (NotDetected) B. pertussis DNA (PCR) (NotDetected) B.parapertussis DNA PCR (NotDetected) C. pneumoniae DNA (PCR) (NotDetected) Coronavirus OC43 (PCR) (NotDetected) Coronavirus HKU1 (PCR) (NotDetected) Coronavirus 229E (PCR) (NotDetected) SARS-CoV-2 (PCR) (NotDetected) Coronavirus NL63 (PCR) (NotDetected) Human Metapneumovir PCR (NotDetected) Influenza Type A (PCR) (NotDetected) Influenza Type B (PCR) (NotDetected) M. pneumoniae (PCR) (NotDetected) Parainfluenza 1 (PCR) (NotDetected) Parainfluenza 2 (PCR) (NotDetected) Parainfluenza 3 (PCR) (NotDetected) Parainfluenza 4 (PCR) (NotDetected) RSV (PCR) (NotDetected) Entero/Rhino (PCR) (NotDetected) 11/12/22 11/12/22 11/12/22 Range/Units 14:25 14:25 14:35 WBC (4.8-10.8) K/ul RBC (4.70-6.10) M/uL Hgb (14.0-18.0) g/dl Hct (42.0-52.0) % MCV (80.0-100.0) fL MCH (25.0-34.0) pg MCHC (32.0-36.0) g/dL RDW Std Deviation (36.4-46.3) fL RDW Coeff of Ruddy (11.5-14.5) % Plt Count (130-400) K/uL MPV (9.4-12.4) fL Immature Gran % (Auto) % Neut % (Auto) % Lymph % (Auto) % [place] % (Auto) % Eos % (Auto) % Baso % (Auto) % Neut # (Auto) (1.40-6.50) K/uL Lymph # (Auto) (1.2-3.4) K/uL [place] # (Auto) (0.11-0.59) K/uL Eos # (Auto) (0-0.50) K/uL Baso # (Auto) (0-0.2) K/uL Immature Gran # (Auto) (0.01-0.20) K/uL PT (9.0-12.0) Seconds INR (0.9-1.1) APTT (21.0-31.0) Seconds PTT Ratio VBG pH (7.36-7.41) VBG pCO2 (38-50) mmHg VBG pO2 mmHg VBG HCO3 mmol/L VBG O2 Saturation % VBG Base Excess mEq/L Sodium (136-145) mmol/L Potassium (3.5-5.1) mmol/L Chloride (98-107) mmol/L Carbon Dioxide (21-32) mmol/L Anion Gap (3-11) BUN (6-23) mg/dl Creatinine (0.6-1.4) mg/dl Est Cr Clr Drug Dosing Est GFR ( Amer) ml/min Est GFR (Non-Af Amer) ml/min BUN/Creatinine Ratio (10-20) Glucose (70-99(Fasting)) mg/dl Lactate (0.4-2.0) mmol/L Calcium (8.6-10.3) mg/dl Magnesium (1.7-2.4) mg/dl Total Bilirubin (0.2-1.0) mg/dl Direct Bilirubin (0-0.2) mg/dl AST (13-39) U/L ALT (7-52) U/L Alkaline Phosphatase (34-104) U/L Troponin I High Sens (0-20) pg/ml Total Protein (6.0-8.3) gm/dl Albumin (3.4-5.0) gm/dl Procalcitonin (0-0.5) ng/ml Urine Color Yellow Urine Appearance Clear (Clear) Urine pH 6.0 (4.5-7.5) Ur Specific Stanley 1.013 (1.000-1.030) Urine Protein Trace H (Negative) Urine Glucose (UA) Negative (Negative) Urine Ketones Negative (Negative) Urine Blood 1+ H (Negative) Urine Nitrite Negative (Negative) Urine Bilirubin Negative (Negative) Urine Urobilinogen Negative (Negative) Ur Leukocyte Esterase Negative (Negative) Urine WBC (Auto) 1-5 (0-5) /hpf Urine RBC (Auto) 5-10 H (0-4) /hpf U Hyaline Cast (Auto) 10-30 H (0-5) /lpf U Epithel Cells (Auto) 20-30 H (0-5) /lpf Urine Bacteria (Auto) Negative (Negative) Salicylates (3.0-30) mg/dl Urine Opiates Screen Neg (Neg) Ur Methadone, Qual Neg (Neg) Acetaminophen (10-30) ug/ml Urine Barbiturates Neg (Neg) Ur Phencyclidine (PCP) Neg (Neg) U Amphetamin/Meth Scrn Neg (Neg) MDMA (Ecstasy) Screen Neg (Neg) U Benzodiazepines Scrn Neg (Neg) Ur Cocaine Metabolite Neg (Neg) U Marijuana (THC) Screen Pos H (Neg) Ethyl Alcohol mg/dL (<10.0) mg/dl Adenovirus (PCR) Not Detected (NotDetected) B. pertussis DNA (PCR) Not Detected (NotDetected) B.parapertussis DNA PCR Not Detected (NotDetected) C. pneumoniae DNA (PCR) Not Detected (NotDetected) Coronavirus OC43 (PCR) Not Detected (NotDetected) Coronavirus HKU1 (PCR) Not Detected (NotDetected) Coronavirus 229E (PCR) Not Detected (NotDetected) SARS-CoV-2 (PCR) Not Detected (NotDetected) Coronavirus NL63 (PCR) Not Detected (NotDetected) Human Metapneumovir PCR Not Detected (NotDetected) Influenza Type A (PCR) Not Detected (NotDetected) Influenza Type B (PCR) Not Detected (NotDetected) M. pneumoniae (PCR) Not Detected (NotDetected) Parainfluenza 1 (PCR) Not Detected (NotDetected) Parainfluenza 2 (PCR) Not Detected (NotDetected) Parainfluenza 3 (PCR) Not Detected (NotDetected) Parainfluenza 4 (PCR) Not Detected (NotDetected) RSV (PCR) Not Detected (NotDetected) Entero/Rhino (PCR) Not Detected (NotDetected) 11/12/22 11/12/22 Range/Units 14:36 14:36 WBC (4.8-10.8) K/ul RBC (4.70-6.10) M/uL Hgb (14.0-18.0) g/dl Hct (42.0-52.0) % MCV (80.0-100.0) fL MCH (25.0-34.0) pg MCHC (32.0-36.0) g/dL RDW Std Deviation (36.4-46.3) fL RDW Coeff of Ruddy (11.5-14.5) % Plt Count (130-400) K/uL MPV (9.4-12.4) fL Immature Gran % (Auto) % Neut % (Auto) % Lymph % (Auto) % [place] % (Auto) % Eos % (Auto) % Baso % (Auto) % Neut # (Auto) (1.40-6.50) K/uL Lymph # (Auto) (1.2-3.4) K/uL [place] # (Auto) (0.11-0.59) K/uL Eos # (Auto) (0-0.50) K/uL Baso # (Auto) (0-0.2) K/uL Immature Gran # (Auto) (0.01-0.20) K/uL PT (9.0-12.0) Seconds INR (0.9-1.1) APTT (21.0-31.0) Seconds PTT Ratio VBG pH 7.29 L (7.36-7.41) VBG pCO2 29 L (38-50) mmHg VBG pO2 53 mmHg VBG HCO3 14 mmol/L VBG O2 Saturation 78.7 % VBG Base Excess -11.2 mEq/L Sodium (136-145) mmol/L Potassium (3.5-5.1) mmol/L Chloride (98-107) mmol/L Carbon Dioxide (21-32) mmol/L Anion Gap (3-11) BUN (6-23) mg/dl Creatinine (0.6-1.4) mg/dl Est Cr Clr Drug Dosing Est GFR ( Amer) ml/min Est GFR (Non-Af Amer) ml/min BUN/Creatinine Ratio (10-20) Glucose (70-99(Fasting)) mg/dl Lactate 10.3 H* (0.4-2.0) mmol/L Calcium (8.6-10.3) mg/dl Magnesium (1.7-2.4) mg/dl Total Bilirubin (0.2-1.0) mg/dl Direct Bilirubin (0-0.2) mg/dl AST (13-39) U/L ALT (7-52) U/L Alkaline Phosphatase (34-104) U/L Troponin I High Sens (0-20) pg/ml Total Protein (6.0-8.3) gm/dl Albumin (3.4-5.0) gm/dl Procalcitonin (0-0.5) ng/ml Urine Color Urine Appearance (Clear) Urine pH (4.5-7.5) Ur Specific Stanley (1.000-1.030) Urine Protein (Negative) Urine Glucose (UA) (Negative) Urine Ketones (Negative) Urine Blood (Negative) Urine Nitrite (Negative) Urine Bilirubin (Negative) Urine Urobilinogen (Negative) Ur Leukocyte Esterase (Negative) Urine WBC (Auto) (0-5) /hpf Urine RBC (Auto) (0-4) /hpf U Hyaline Cast (Auto) (0-5) /lpf U Epithel Cells (Auto) (0-5) /lpf Urine Bacteria (Auto) (Negative) Salicylates (3.0-30) mg/dl Urine Opiates Screen (Neg) Ur Methadone, Qual (Neg) Acetaminophen (10-30) ug/ml Urine Barbiturates (Neg) Ur Phencyclidine (PCP) (Neg) U Amphetamin/Meth Scrn (Neg) MDMA (Ecstasy) Screen (Neg) U Benzodiazepines Scrn (Neg) Ur Cocaine Metabolite (Neg) U Marijuana (THC) Screen (Neg) Ethyl Alcohol mg/dL (<10.0) mg/dl Adenovirus (PCR) (NotDetected) B. pertussis DNA (PCR) (NotDetected) B.parapertussis DNA PCR (NotDetected) C. pneumoniae DNA (PCR) (NotDetected) Coronavirus OC43 (PCR) (NotDetected) Coronavirus HKU1 (PCR) (NotDetected) Coronavirus 229E (PCR) (NotDetected) SARS-CoV-2 (PCR) (NotDetected) Coronavirus NL63 (PCR) (NotDetected) Human Metapneumovir PCR (NotDetected) Influenza Type A (PCR) (NotDetected) Influenza Type B (PCR) (NotDetected) M. pneumoniae (PCR) (NotDetected) Parainfluenza 1 (PCR) (NotDetected) Parainfluenza 2 (PCR) (NotDetected) Parainfluenza 3 (PCR) (NotDetected) Parainfluenza 4 (PCR) (NotDetected) RSV (PCR) (NotDetected) Entero/Rhino (PCR) (NotDetected) Administered Medications Sodium Chloride (Nss 1000ml) 1,000 mls @ 999 mls/hr IV .Q1H1M GIRMA Stop: 11/12/22 16:30 Last Admin: 11/12/22 15:54 Dose: 999 mls/hr Documented By: Infusion: 11/12/22 15:45 Dose: 999 mls/hr Documented By: Admin: 11/12/22 14:44 Dose: 999 mls/hr Documented By: OPAL Discontinued Medications Cefepime HCl (Maxipime) 2,000 mg in 20 mls @ 5 mls/min IV NOW STA; Protocol Stop: 11/12/22 14:22 Last Admin: 11/12/22 14:44 Dose: 5 mls/min Documented By: GLENNYB Sodium Chloride (Nss 1000ml) 1,000 mls @ 999 mls/hr IV .Q1H1M GIRMA Stop: 11/12/22 15:30 Last Infusion: 11/12/22 15:46 Dose: 0 mls/hr Documented By: Admin: 11/12/22 14:45 Dose: 999 mls/hr Documented By: OPAL Lorazepam (Lorazepam 2 Mg/1 Ml Vial) 1 mg IV NOW STA Stop: 11/12/22 14:20 Last Admin: 11/12/22 14:44 Dose: 1 mg Documented By: OPAL Imaging Data Radiologist's Impression: Chest X-Ray 11/12/22 14:19 XR chest 1V portable HISTORY: Sepsis COMPARISON: Chest 10/26/2016. FINDINGS: The lungs are clear. Cardiac silhouette is normal in size. No pleural effusions. No pneumothorax. IMPRESSION: No acute process. ACT 112: Negative or not required by law. Electronically signed by: Forest Enamorado M.D. 11/12/2022 2:[address] 11/12/22 14:[address] DOSE: 547.75 mGy.cm HISTORY: Altered mental status. TECHNIQUE: Multiaxial CT images of the head were performed without the use of intravenous contrast. Automated exposure control was utilized for this study. A dose lowering technique was utilized adhering to the principles of ALARA. Comparison: Head CT 03/08/2016. Findings: Motion artifact. The paranasal sinuses and mastoid air cells are clear. The calvarium and skull base are intact. The ventricles and sulci are within normal limits. There is no mass, hematoma, midline shift, or acute infarct. Impression: No acute intracranial abnormality. ACT 112: Negative or not required by law. Electronically signed by: Forest Enamorado M.D. 11/12/2022 3:01 PM Discharge Plan Visit Data Chief Complaint: Altered Mental Status ED Provider: Rm Armenta Discharge Problem: Altered mental status, Metabolic acidosis Patient Disposition: Being Evaluated by Hospitalist Forms Stand Alone Forms: My [facility] Prescriptions Prescriptions: No Action tamsulosin 0.4 mg capsule 0.4 mg PO DAILY Qty: 90 3RF amlodipine 5 mg tablet 5 mg PO DAILY lorazepam 1 mg tablet 1 mg PO TID PRN One-A-Day Men's 50 Plus(vit K) 400-20-370 mcg tablet 1 tab PO DAILY tramadol 50 mg tablet 100 mg PO Q6H Referrals Referrals: Lara Rosas [Primary Care Provider] -
--- NOTE | 2022-11-12 14:53 | XRay Report ---
XR chest 1V portable HISTORY: Sepsis COMPARISON: Chest 10/26/2016. FINDINGS: The lungs are clear. Cardiac silhouette is normal in size. No pleural effusions. No pneumot horax. IMPRESSION: No acute process. ACT 112: Negative or not required by law. Electronically signed by: Forest Enamorado M.D. 11/12/2022 2:51 PM
[2022-11-12 14:55] LABS: Base Excess VBG -11.2 mEq/L; HCO3 VBG 14 mmol/L; Oxygen Saturation VBG 78.7 %; PCO2 VBG 29 mmHg (38-50); PO2 VBG 53 mmHg; pH VBG 7.29 (7.36-7.41)
[2022-11-12 14:56] LABS: Appearance Urine Clear (Clear); Bacteria Urine Automated Negative (Negative); Bilirubin Urine Negative (Negative); Blood Urine 1+ (Negative); Color Urine Yellow; Epithelial Cell Urine Auto 20-30 /lpf (0-5); Glucose Urine UA Negative (Negative); Ketones Urine Negative (Negative); Leukocyte Esterase Urine Negative (Negative); Nitrite Urine Negative (Negative); Protein Urine Trace (Negative); Specific Gravity Urine 1.013 (1.000-1.030); Urobilinogen Urine Negative (Negative)
[2022-11-12 15:00] LABS: Alanine Aminotransferase 16 U/L (7-52); Albumin Level 3.9 gm/dl (3.4-5.0); Alkaline Phosphatase 64 U/L (34-104); Anion Gap 20 (3-11); Aspartate Aminotransferase 18 U/L (13-39); BUN Creatinine Ratio 9.8 (10-20); Bilirubin Direct 0.1 mg/dl (0-0.2); Bilirubin,Total 0.6 mg/dl (0.2-1.0); Blood Urea Nitrogen 13 mg/dl (6-23); Calcium 8.3 mg/dl (8.6-10.3); Carbon Dioxide 11 mmol/L (21-32); Chloride 106 mmol/L (98-107); Est GFR (African American) 66.9 ml/min; Est GFR (Non-African American) 57.7 ml/min; Glucose 158 mg/dl (70-99(Fasting)); Magnesium 2.4 mg/dl (1.7-2.4); Potassium 3.2 mmol/L (3.5-5.1); Sodium 137 mmol/L (136-145); Total Protein 6.4 gm/dl (6.0-8.3)
--- NOTE | 2022-11-12 15:03 | CT Scan Report ---
HEAD CT NONCONTRAST CT DOSE: 547.75 mGy.cm HISTORY: Altered mental status. TECHNIQUE: Multiaxial CT images of the head were performed without the use of intravenous contrast. A utomated exposure control was utilized for this study. A dose lowering technique was utilized adheri ng to the principles of ALARA. Comparison: Head CT 03/08/2016. Findings: Motion artifact. The paranasal sinuses and mastoid air cells are clear. The calvarium and s kull base are intact. The ventricles and sulci are within normal limits. There is no mass, hematoma, midline shift, or acute infarct. Impression: No acute intracranial abnormality. ACT 112: Negative or not required by law. Electronically signed by: Forest Enamorado M.D. 11/12/2022 3:01 PM
[2022-11-12 15:05] LABS: Acetaminophen 7 ug/ml (10-30); Salicylate < 3.0 mg/dl (3.0-30)
[2022-11-12 15:08] LABS: Amphetamines+Metham, Urine Neg (Neg); Barbiturates, Urine Neg (Neg); Benzodiazepine, Urine Neg (Neg); Cocaine, Urine Neg (Neg); MDMA (Ecstacy), Urine Neg (Neg); Methadone, Urine Neg (Neg); Opiate, Urine Neg (Neg); Phencyclidine, Urine Neg (Neg)
[2022-11-12 15:12] LABS: INR 1.1 (0.9-1.1); Partial Thromboplastin Ratio 0.8; Partial Thromboplastin Time 23.9 Seconds (21.0-31.0); Prothrombin Time 11.5 Seconds (9.0-12.0)
[2022-11-12 15:34] LABS: Adenovirus PCR Not Detected (NotDetected); Bordetella parapertussis PCR Not Detected (NotDetected); Bordetella pertussis PCR Not Detected (NotDetected); Chlamydia pneumoniae PCR Not Detected (NotDetected); Coronavirus 229E PCR Not Detected (NotDetected); Coronavirus CoV-2 (COVID19)PCR Not Detected (NotDetected); Coronavirus HKU1 PCR Not Detected (NotDetected); Coronavirus NL63 PCR Not Detected (NotDetected); Coronavirus OC43PCR Not Detected (NotDetected); Human Metapneumovirus PCR Not Detected (NotDetected); Influenza A PCR Not Detected (NotDetected); Influenza B PCR Not Detected (NotDetected); Mycoplasma pneumoniae PCR Not Detected (NotDetected); Parainfluenza Virus 1 PCR Not Detected (NotDetected); Parainfluenza Virus 2 PCR Not Detected (NotDetected); Parainfluenza Virus 3 PCR Not Detected (NotDetected); Parainfluenza Virus 4 PCR Not Detected (NotDetected); Respiratory Syncytial VirusPCR Not Detected (NotDetected); Rhinovirus/Enterovirus PCR Not Detected (NotDetected)
--- NOTE | 2022-11-12 16:24 | Electrocardiogram Report ---
Test Reason : Blood Pressure : / mmHG Vent. Rate : 136 BPM Atrial Rate : 136 BPM P-R Int : 104 ms QRS Dur : 100 ms QT Int : 376 ms P-R-T Axes : 000 050 092 degrees QTc Int : 565 ms Sinus tachycardia Possible Inferior infarct , age undetermined Abnormal ECG When compared with ECG of 26-OCT-2016 17:16, [place] interval has decreased Borderline criteria for Inferior infarct are now Present Nonspecific T wave abnormality, improved in Lateral leads Confirmed by Robert Evans ([id number]) on 11/12/2022 4:23:58 PM Referred By: Confirmed By:Gilbert Evans
--- NOTE | 2022-11-12 16:37 | History & Physical Report ---
Date of Service November 12, 2022 Assessment & Plan (1) Altered mental status: Plan: Altered mental status Unclear origin. Patient with extreme agitation and delirium on EMS arrival with home disheveled. Past history of drug use per police Lactate elevated to 10, normalized following fluids. Patient also with a metabolic acidosis. CK is pending DDx does include benzodiazepine withdrawal seizure, versus substance induced encephalopathy. Alcohol is negative, benzo UDS is negative, marijuana screen is positive. Synthetic marijuana analogs possible Given multiple fills but negative benzo screen on admission with very high lactate and Bolick acidosis on admission we will treat with Valium to cover for seizure and placed on seizure precautions. Lorazepam 3 times daily home dosing continued with breakthrough for behavioral control. QTc is prolonged, may not use typical/atypical antipsychotics for acute behavioral control. Hold lorazepam for sedation/respiratory suppression. Discussed with psychiatry, agree with benzodiazepine treatment and they will follow-up with patient tonight/tomorrow for underlying history of anxiety/bipolar. DDx also includes alcohol abuse/Wernicke's, patient denies alcohol use in the last 3 years and has a negative alcohol on admission. As he is an unreliable historian with prior history of substance use, will cover with high-dose thiamine on admission. As a treatment as noted, if progressive signs of alcohol withdrawal/DTs convert to ITALO S protocol. PCU status in ICU, patient may require transfer to ICU overnight if he requires additional adjunct behavioral pharmacologic control Patient is acutely delirious on assessment, is unable to verbalize medical information back as it applies to him, is not oriented to name, place, or year. He does not demonstrate capacity to leave AMA at time of assessment. Defer additional antibiotics, follow fever curve and CBC 05/2022 PS note reviewed. Per that note Med hx includes: History of hypertension, substance abuse, cervical stenosis. Anxiety on Seroquel and lorazepam, no SI/HI Essential hypertension stable and well-controlled on amlodipine Urinary frequency/LUTS stable on tamsulosin Chronic joint pain previously on tramadol External med reconciliation: Tramadol 50 mg 220 tablets last filled 11/09/2022 Lorazepam 1 mg 110 tablets last filled 10/22/2022 Bupropion slow release 150 mg twice daily tablets last prescribed 07/19/2022 Quetiapine 50 mg nightly last filled 09/22/2022 Hypertension Hold antihypertensives for mild hypotension and elevated lactate Bipolar depression Psych consulted for medication management Patient denies substance ingestion/overdose, SI/HI. Denies auditory/visual hallucinations Patient denies taking other medications for anxiety/depression including bupropion/quetiapine, is an unreliable historian at times Behavioral control as otherwise noted Cervical radiculopathy With known cervical stenosis Patient endorses intermittent numbness/tingling and weakness in his hands, which is not currently present. MRI: 09/28/22: 1. No acute fracture, subluxation or marrow edema.. Discogenic degeneration with facet arthrosis as above.3. Moderate central canal stenosis at C5-C6 with multilevel neural foraminal narrowing.4. Normal signal of the cervical spinal cord. DVT prophylaxis: SCDs, pharmacoprophylaxis deferred in case patient clinically worsens and LP becomes indicated Diet: N.p.o. while acutely delirious Disposition: PCU CODE STATUS: Full code (2) Metabolic acidosis: (3) Neural foraminal stenosis of cervical spine: (4) Hypertension: (5) Anxiety: (6) Bipolar disorder with depression: History of Present Illness Primary Care Provider: Lara Rosas Alejandro Bonner is a 62-year-old male with a past medical history of cervical radiculopathy, alcohol use/intoxication, hypertension, bipolar disorder, rumination disorder, anxiety, cervical for aminal stenosis who was visited by [id number] salesman today and was found to be disheveled with a home in disarray and patient was extremely confused. EMS was called and noted that patient was combative, very confused, and not following commands. BSG 149. He received ketamine 300 mg IM by EMS and was transported to the ER with assistance of police. Per police patient has a history of substance/drug abuse. On arrival he was found to have a lactate of 10 without leukocytosis. VBG 7.2 03/24//14 and without troponin abnormality or transaminitis. Urine drug screen was positive for marijuana, but negative for cocaine/methamphetamine/PCP. BioFire was negative. CThead was without acute intracranial abnormality, CXR shows no acute process. Alcohol is negative. EKG sinus tachycardia no territorial ST segment changes. Hx stroke Speech is pressured and tangential. Patient is not oriented to place. Thinks he is in [place]) or year (thinks it is 1959). Frequently redirects to multiple deaths in the family in the last year and his fiance passing several months ago in May. Answers questions appropriately intermittently, denies SI/HI. Used to work at [employer] for a few years, then moved to [employer] workong on [employer] but hasn't worked in a a few weeks. Used to work with [employer]. Last few days denies fevers, chills. Notes he sometimes gets sweats at night but this hasn't changed and is improved if he gets up and pees in the middle of the night. No dysuria. No polyuria. Denies chest pain, chest pressure. [place] very anxious last night and had a worry like feeling but no pain. No shortness of breath, n ocough. Interjects "Is it Monday, what are you doing here? Do you work at [employer]?" during HPI no problems lately. Denies being ill lately; Reporst he hasn't eaten much lately. Reports is eating more than he did 30 days ago, but doesn't remember the last time he aid. Denies auditory/visual hallucinations. Denies SI/HI. Endorses anxiety. Takes lorazepam TID for anxiety PRN.Denies drug use. No neck pain. No photosensitivy. No headache. Reports used to get neck pain, but none in in the last few months. Sees Dr. [facility] as an outpatient. +dry mouth trying to keep words unslurred. Denies ETOH in 3 year.s Multiple deaths in the family Pain in hands and feel 'like a cake of calcium.' Has had shooting pain in hands and feet. +cervical stenosis of MRI last month. Feels his strenght and numbness tingling is actually doing well compared to last month, no tingling today and s trength it better the last few days. Thought this was a ministroke, did not realize cervical stenosis was different. 05/2022 H note reviewed History of hypertension, substance abuse, cervical stenosis. Anxiety on Seroquel and lorazepam, no SI/HI Essential hypertension stable and well-controlled on amlodipine Urinary frequency/LUTS stable on tamsulosin Chronic joint pain previously on tramadol External med reconciliation: Tramadol 50 mg 220 tablets last filled 11/09/2022 Lorazepam 1 mg 110 tablets last filled 10/22/2022 Bupropion slow release 150 mg twice daily tablets last prescribed 07/19/2022 Quetiapine 50 mg nightly last filled 09/22/2022 Allergies Allergy/AdvReac Type Severity Reaction Status Date / Time No Known Allergies Allergy Verified 09/13/22 14:10 Home Medications Medication Instructions Recorded Confirmed Type amlodipine 5 mg tablet 5 mg PO DAILY 05/06/21 09/13/22 History lorazepam 1 mg tablet 1 mg PO TID PRN 05/06/21 09/13/22 History [id number] acid-vit 1 tab PO DAILY 05/06/21 09/13/22 History K-lycop 400 mcg-20 mcg-370 mcg tablet (One-A-Day Men's 50 Plus (with vitamin K)) tamsulosin 0.4 mg capsule 0.4 mg PO DAILY #90 caps 01/26/22 09/13/22 Rx tramadol 50 mg tablet 100 mg PO Q6H 09/13/22 09/13/22 History Past Med/Surg History Medical History (Updated 11/12/22 @ 16:27 by Rm Armenta DO) Cervical radiculopathy Cervical spondylosis History of substance abuse Left arm pain Neural foraminal stenosis of cervical spine Strain of neck muscle Surgical History S/P excision of lipoma (05/24/21) Dr. 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 Not oriented to place or year. Speech is pressured with psychomotor agitation. Speech is pressured and tangential. Not responding to internal stimuli. Denies SI/HI. HEENT: Atraumatic, normocephalic. Pupils equal and reactive to light Pulm: CTAB A&P. -wheezes, -rales, -rhonchi. Symmetrical chest rise. No increased work of breathing. No respiratory distress. Cardiac: Regular, tachycardic radial pulses intact and symmetrical. Abdominal: Nontender, nondistended, soft. BS present. Extremities: Surface abrasions on feet bilaterally, cap refill brisk. PT pulse intact bilaterally. No demarcated erythema of the upper or lower extremities. Moves all extremities equally, sensation to soft touch is intact in hands and feet. Vocational Ed Instructor strength 5/5, ankle dorsiflexion/plantarflexion 5/5, exam somewhat limited by impulsivity Results & Data Results & Data Vital Signs (Past 12 Hours) Vital Signs Temp Pulse Resp BP Pulse Ox O2 Del Method 11/12/22 15:45 113 H 23 109/66 96 11/12/22 15:30 120 H 18 125/77 94 11/12/22 15:15 129/76 11/12/22 15:15 128 H 19 129/76 95 11/12/22 15:16 135 H 20 97 Room Air 11/12/22 15:00 135 H 28 H 97 11/12/22 15:00 146/84 H 11/12/22 14:30 140 H 12 11/12/22 14:30 128/78 11/12/22 14:27 140 H 15 98 11/12/22 15:03 142 H 11/12/22 14:19 36.8 C 141 H 16 117/82 97 Room Air PG Care Time/CCT Total # of Minutes Spent Total Time Spent with Patient: Total time spent is greater than 50% in coordination of care (as documented) at patient's floor/unit and/or counseling patient: Coding Level of Care Code 77284 INT INP/OBS CARE 3/75MIN Diagnoses Altered mental status R41.82 Metabolic acidosis E87.20 Neural foraminal stenosis of cervical spine M48.02 Hypertension I10 Anxiety F41.9 Bipolar disorder with depression F31.9
[2022-11-12] MEDS ORDERED: POTASSIUM CHLORIDE CRTAB 20 MEQ TABCR PO STA (16:53)
[2022-11-12] MEDS ORDERED: LORazepam 1 MG TAB PO PRN ×3 (16:56→17:22)
[2022-11-12] MEDS ORDERED: LORazepam 2 MG/1 ML VIAL IV SCH (17:00)
[2022-11-12] MEDS ORDERED: LORazepam 2 MG/1 ML VIAL IV PRN (18:11)
[2022-11-12] MEDS ORDERED: THIAMINE HCL 500 MG in SODIUM CHLORIDE 0.9% 50 ML IV STA (18:16)
[2022-11-12] MEDS: LORazepam 2 MG/1 ML VIAL IV SCH (19:50)
[2022-11-12] MEDS ORDERED: PLASMA-LYTE A 1,000 ML IV SCH (20:30)
[2022-11-13] MEDS: LORazepam 2 MG/1 ML VIAL IV SCH ×5 (02:24→19:37)
[2022-11-13 08:42] LABS: Basophils # (auto) 0.03 K/uL (0-0.2); Basophils % (auto) 0.4 %; Eosinophils # (auto) 0.02 K/uL (0-0.50); Eosinophils % (auto) 0.3 %; Hematocrit (blood only) 38.7 % (42.0-52.0); Hemoglobin 12.9 g/dl (14.0-18.0); Immature Granulocytes # (auto) 0.02 K/uL (0.01-0.20); Immature Granulocytes % (auto) 0.3 %; Lymphocytes # (auto) 0.86 K/uL (1.2-3.4); Mean Corpuscular Hemoglobin 29.5 pg (25.0-34.0); Mean Corpuscular Hgb Conc 33.3 g/dL (32.0-36.0); Mean Corpuscular Volume 88.4 fL (80.0-100.0); Mean Platelet Volume 10.2 fL (9.4-12.4); Monocytes # (auto) 0.53 K/uL (0.11-0.59); Monocytes % (auto) 6.8 %; Neutrophils # (auto) 6.35 K/uL (1.40-6.50); Neutrophils % (auto) 81.2 %; Platelet Count 245 K/uL (130-400); RDW Coefficient of Variation 13.6 % (11.5-14.5); Red Blood Count 4.38 M/uL (4.70-6.10); White Blood Count 7.81 K/ul (4.8-10.8)
[2022-11-13] MEDS ORDERED: THIAMINE HCL 100 MG in SYRINGE 9 ML IV SCH (09:00)
[2022-11-13 09:05] LABS: BUN Creatinine Ratio 7.9 (10-20); Calcium 8.9 mg/dl (8.6-10.3); Creatinine Clr Calc Pharmacy 88.3 ml/min; Est GFR (African American) 107.7 ml/min; Est GFR (Non-African American) 92.9 ml/min; Potassium 3.5 mmol/L (3.5-5.1)
[2022-11-13] MEDS ORDERED: Ativan IV Alcohol Withdrawal--Active Protocol IV PRN (09:25)
[2022-11-13] MEDS ORDERED: LORazepam 2 MG/1 ML VIAL IV PRN (09:25)
--- NOTE | 2022-11-13 11:19 | Hospitalist Progress Note ---
Date of Service November 13, 2022 Assessment & Plan (1) Acute encephalopathy: Plan: Patient with extreme agitation and delirium on EMS arrival with home disheveled. Past history of drug use per police but patient denies this Lactate elevated to 10 with anion gap metabolic acidosis, normalized following fluids. CK normal Alcohol is negative, benzo UDS is negative despite having a prescription for lorazepam, marijuana screen is positive. APAP mildly elevated and admits to taking Tylenol as needed for pain. Salicylates negative. Denies illicit drug use Seems somewhat improved with IV lorazepam, but with significant tangential conversation and confabulation, disorientation. No evidence of infection Differential includes alcohol and/or benzodiazepine withdrawal, Wernicke's/Korsakoff's psychosis, acute celia with history of possible bipolar disorder. Has been on bupropion for the last few months which may have precipitated celia Greatly appreciate psychiatry consultation and recommendations -Start Haldol 5 Mg p.o. twice daily -Give Haldol 5 Mg IM twice daily as needed severe agitation, can also give Ativan -Add AWSS scale with as needed Ativan as well as scheduled Ativan 1 mg 4 times daily which he takes at home Patient is acutely delirious on assessment, is unable to verbalize medical information back as it applies to him, is not oriented to name, place, or year. He does not demonstrate capacity to leave AMA -Add formal one-to-one sitter -Supportive care -Follow CBC, CMP, magnesium (2) Bipolar disorder with depression: Plan: Patient denies this diagnosis, but is noted in previous records Psych consulted for medication management as above Patient denies substance ingestion/overdose, SI/HI. Denies auditory/visual hallucinations but does have some paranoia Patient denies taking other medications for anxiety/depression including bupropion/quetiapine, is an unreliable historian at times Behavioral control as otherwise noted -Holding home bupropion, quetiapine, giving Haldol and Ativan as above (3) Metabolic acidosis: Plan: As above, with lactic acidosis for unknown cause-likely from dehydration or hypovolemia? Now resolved with IV fluids No evidence of sepsis or infection Blood pressures are elevated and not low Follow BMP (4) Neural foraminal stenosis of cervical spine: Plan: Cervical radiculopathy by history and sees pain management, had recent MRI With known cervical stenosis Patient endorses intermittent numbness/tingling and weakness in his hands, which is not currently present. MRI: 09/28/22: 1. No acute fracture, subluxation or marrow edema.. Discogenic degeneration with facet arthrosis as above.3. Moderate central canal stenosis at C5-C6 with multilevel neural foraminal narrowing.4. Normal signal of the cervical spinal cord. -Restart home tramadol as needed for pain (5) Hypertension: Plan: Blood pressures are elevated here secondary to agitation Okay to restart home amlodipine for tomorrow (6) BPH (benign prostatic hyperplasia): Plan: Restart home tamsulosin Watch for urinary retention Plan Disposition-continued stay in PCU Admission and Anticipated Discharge Date Admission Date: November 12, 2022 Subjective Patient quite agitated, extremely tangential. Difficult to get much history out of him at all. He is very anxious to leave the hospital and take care of his dog at home. Otherwise, he has difficulty telling me where he is or what happened to bring him here. He denies drug abuse and when I told him he was positive for marijuana on his urine drug screen, he seemed surprised and angry. Will not disclose any names of friends or family. Denies any history of alcohol abuse, smoking, psychiatric hospitalizations. Does not understand why he is here or even where he is. Says that he has pain all over his body especially in the shoulders and hands and back. He is quite restless and agitated. He is able to tell me that he has been advised to cut back on his lorazepam, but has not been able to quantify how many per day he is taking. He minimizes that he takes it at all. I discussed his care with psychiatry. Physical Exam Constitutional: WD/WN, vitals as above Eyes: + anicteric sclerae and EOM intact bilaterally; no conjunctival abnormality, no anisocoria and no nystagmus Respiratory: normal respiratory effort, lungs clear to auscultation Cardiovascular: RRR, no murmur, no edema Gastrointestinal (Abdomen): normal bowel sounds, soft, nontender, no hepatosplenomegaly Skin: + lesion (Multiple abrasions on the tops of feet and toes) Neurologic: CN's II-XI intact bilaterally, awake and + confused; no focal motor deficits Psychiatric: Orientation: alert, oriented to person and cooperative (Somewhat); + not oriented to place and + not oriented to time Apperance: + disheveled Eye Contact: + fair eye contact Motor Behavior: + psychomotor agitation; n tremor Speech: + pressured speech Affect: + irritable affect Mood: + anxious mood and + irritable mood Thought Process: + tangential thought process, + flight of ideas and + confabulations Thought Content: + paranoid Insight: + poor insight Judgment: + poor judgement Results & Data Results & Data Vital Signs (Past 12 Hours) Vital Signs Temp Pulse Pulse Resp BP BP Pulse Ox 11/13/22 10:27 37.4 C 108 H 20 138/82 98 11/13/22 09:25 37.6 C H 114 H 20 158/77 H 99 11/13/22 08:00 11/13/22 08:00 11/13/22 08:00 123 H 11/13/22 07:18 36.6 C 120 H 18 148/79 H 98 11/13/22 06:00 114 H 19 97 11/13/22 05:30 113 H 14 95 11/13/22 05:00 87 18 96 11/13/22 04:30 90 1 L 96 11/13/22 04:00 90 8 L 96 11/13/22 04:00 138/80 11/13/22 03:30 90 15 94 11/13/22 03:00 86 15 93 11/13/22 02:30 101 H 13 94 11/13/22 02:00 87 17 97 11/13/22 01:30 87 12 96 11/13/22 01:00 95 H 18 95 11/13/22 00:30 87 0 L 95 11/13/22 00:01 91/64 L 11/13/22 00:01 86 1 L 95 11/13/22 00:00 85 10 L 96 11/12/22 23:30 86 22 96 Pulse Ox O2 Del Method O2 Del Method 11/13/22 10:27 Room Air 11/13/22 09:25 Room Air 11/13/22 08:00 Room Air 11/13/22 08:00 99 Room Air 11/13/22 08:00 11/13/22 07:18 Room Air 11/13/22 06:00 11/13/22 05:30 11/13/22 05:00 11/13/22 04:30 11/13/22 04:00 11/13/22 04:00 11/13/22 03:30 11/13/22 03:00 11/13/22 02:30 11/13/22 02:00 11/13/22 01:30 11/13/22 01:00 11/13/22 00:30 11/13/22 00:01 11/13/22 00:01 11/13/22 00:00 11/12/22 23:30 Laboratory Results CBC, CMP, lactate, TSH, LFTs reviewed PG Care Time/CCT Total # of Minutes Spent Total Time Spent with Patient: Total time spent is greater than 50% in coordination of care (as documented) at patient's floor/unit and/or counseling patient: Coding Level of Care Code 82398 SUB INP/OBS CARE 3/50MIN Diagnoses Acute encephalopathy G93.40 Bipolar disorder with depression F31.9 Metabolic acidosis E87.20 Neural foraminal stenosis of cervical spine M48.02 Hypertension I10 BPH (benign prostatic hyperplasia) N40.0
--- NOTE | 2022-11-13 11:44 | Psychiatric Consultation ---
Date of Consultation November 13, 2022 Impression / Recommendations Impression 62 yo man with history of anxiety, alcohol use disorder, chronic pain admitted medically for disorganized behaviors, confusion and labwork abnormalities. Psychiatry consulted for recommendations. Diagnostically unclear at this point. Presents with significant confabulations, thought disorganization, very tangential, loosened associations,and confusion. Differential remains very broad including Korsakoff syndrome (given prominent confabulations) versus neurological syndrome (though not presenting as any type of classic dementia-type syndrome and he denies any neurologic symptoms except numbness/tingling in his hands but with known history of cervical spine changes) versus acute delirium (from unknown medical cause vs substance-induced vs putehfoat-sjuiolqtlj-ioyqa represent benzodiazepine withdrawal) versus primary psychiatric conditions including celia (hx per family medicine notes of bipolar depression though no evidence of any recent antipsychotics except Seroquel 50mg HS but recently on Wellbutrin which could have set off manic episode, unclear what his sleep has been like) vs primary psychotic disorder (though no clear delusions rather seems like reality-based confabulations). Will use trial of haldol given that his QTc has improved to now being <500ms, he's requiring frequent doses of ativan and no current symptoms to suggest Lewy Body or Parkinson's type presentation in effort to see if this helps with mental status improvement. He cannot leave AMA as he clearly does not have decision making capacity to leave AMA or refuse any life saving medical treatments. He is not oriented to month or year, cannot tell me about any recent events and cannot describe any of his basic medical facts much less why he is being treated in the hospital. (1) Altered mental status: (2) Cervical radiculopathy: Plan -Recommend 1-on-1 -He cannot leave AMA as he does not have decision making capacity, if attempts please call security -Recommend brain MRI if he can tolerate this -Start haldol 5mg BID po -Continue to monitor QTc closely, if exceeds 500ms then discontinue haldol -For behavioral emergency recommend: haldol 5mg IM and ativan 2mg IM (Do NOT exceed 10mg via IM sources in 24 hours) if QTc remains <500ms, recheck EKG if IM doses required -Agree with AWSS, thiamine and folic acid Psych History Identifying Data 62 yo man with history of anxiety, alcohol use disorder, chronic pain admitted medically for disorganized behaviors, confusion and labwork abnormalities. Psychiatry consulted for recommendations for altered mental status. Chief Complaint "I need to get out here". History of Present Illness Alejandro was brought to the hospital by EMS and police, after receiving Ketamine due to agitation, after someone knocked on his door and found him to be confused and the house in disarray and called for concern for a welfare check. Alejandro participates readily with the interview but it's very challenging to follow his thought process. 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 He thinks he met me yesterday and even when I tell him this is the first time we're meeting he states "check back in 10 years, you'll see". He speaks about a variety of topics but offers very little in terms of substance. When asked questions about his family, current outpatient providers and recent events (including where and when he last worked) he answers tangentially offering conflicting information from one minute to the next. First describes having lots of family around then later tells me he has no family contact. Speaks about his old primary care provider Dr. Mays but cannot recall seeing pain management clinic in August nor seeing his new PCPs at [facility]. States he was working a few days ago and later tells me he hasn't worked in the last few months due to new hand tingling (per pain management note was working at [employer] as recently as August). Tells me his mother, mariele and father all within a few days and weeks of [place] but this appears inaccurate with a published online obituary for his mother (reports she in March 2022). Knows he is at [facility] though later refers to [facility], knows he is in [place] but thinks the month is August (and then repeats September, October when prompted that his response was incorrect but not in a manner of self-correction, rather in a perseverative way) and the year is 1968 "that's the year star niraj came out" but also seemed to struggle to even comprehend what the word "year" meant instead responding with non-related topics. He adamantly denies SI nor any history of prior psychiatric hospitalizations nor suicide attempts. States he has guns at home that are "padlocked". Long history (per [facility] ~10 years) of lorazepam 1mg QID po for anxiety. Review of psychiatric medications also notable for past script for seroquel 50mg HS (per [facility] notes this was for anxiety and insomnia) and recently filled a script for Wellbutrin. No denies any symptoms of psychosis though seems slightly paranoid at times. Difficult to determine how much of the lorazepam he's been using recently, tells me he has about 8 pills left (last filled a script for 27 days with 110 lorazepam 1mg tabs on 10/22/2022). Denies any recent substance use (UDS positive for cannabis on initial screen). Cannot provide any family or personal history of psychiatric conditions or neurologic conditions such as dementia, rather tells me about his father having a heart issue when he was 10. Asked about recent symptoms he only identifies lifelong history of urinary frequency and recent hand numbness/tingling. Denies any gait changes, difficulty with motor movements, urinary incontinence nor vision changes. Cannot speak to his recent sleep and appetite. Allergies Allergy/AdvReac Type Severity Reaction Status Date / Time No Known Allergies Allergy Verified 11/13/22 15:29 Home Medications Medication Instructions Recorded Confirmed Type amlodipine 5 mg tablet 5 mg PO DAILY 05/06/21 11/13/22 History lorazepam 1 mg tablet 1 mg PO TID PRN Unknown 05/06/21 11/13/22 History qojhsgbwnhxv-reu-uchfu acid-vit 1 tab PO DAILY 05/06/21 09/13/22 History K-lycop 400 mcg-20 mcg-370 mcg tablet (One-A-Day Men's 50 Plus (with vitamin K)) tamsulosin 0.4 mg capsule 0.4 mg PO DAILY #90 caps 01/26/22 11/13/22 Rx tramadol 50 mg tablet 100 mg PO Q6H 09/13/22 11/13/22 History quetiapine 50 mg tablet 50 mg PO HS 11/13/22 11/13/22 History Patient History Medical History Cervical radiculopathy Cervical spondylosis History of substance abuse Left arm pain Neural foraminal stenosis of cervical spine Strain of neck muscle Surgical History S/P excision of lipoma (05/24/21) Dr. 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 Feels Safe at Home: Yes during the past year weight has: decreased > 10 lbs Physical Exam Psychiatric: Orientation: alert, oriented to person and oriented to place; + not oriented to time Apperance: + disheveled Eye Contact: good eye contact Motor Behavior: no abnormal motor movements Speech: + abnormal rate/rhythm/volume of speech (slightly faster than normal ) Affect: + irritable affect (but cooperative ) Mood: + irritable mood (wants to get home) Thought Process: + looseness of associations and + confabulations Thought Content: + paranoid Suicidal Thoughts: denies suicidal thoughts Homicidal Thoughts: denies homicidal thoughts Hallucinations: no auditory hallucinations and no visual hallucinations Cognition: language grossly intact; + recent memory not intact, + remote memory not intact and + attention not intact Insight: + severely impaired insight Judgment: + limited judgement Vital Signs (Past 24 Hours): Last Vital Signs Temp 36.8 C 11/13/22 11:41 Pulse 118 H 11/13/22 11:41 Resp 20 11/13/22 11:41 BP 114/87 11/13/22 11:41 Pulse Ox 98 11/13/22 11:41 O2 Del Method Room Air 11/13/22 11:41 Review of Systems All systems reviewed & are unremarkable except as noted in HPI & below Results & Data (PSY) Medications Administered Thiamine HCl 100 mg/ Syringe 10 mls @ 2 mls/min IV QAM GIRMA Stop: 12/13/22 08:59 Last Admin: 11/13/22 11:38 Dose: 2 mls/min Documented By: GPF Lorazepam (Lorazepam 2 Mg/1 Ml Vial) 2 mg IV Q5M PRN PRN Reason: seizure Last Admin: 11/13/22 10:34 Dose: 2 mg Documented By: GPF Coding Level of Care Code 67970 IN/OBS CONSULT LVL 4,60M Diagnoses Altered mental status R41.82 Cervical radiculopathy M54.12 Time Spent (min) 65
[2022-11-13] MEDS: LORazepam 2 MG/1 ML VIAL IV PRN ×3 (11:55→22:18)
[2022-11-13] MEDS ORDERED: HALOPERIDOL LACTATE 5 MG/ML 1 ML VIAL IM PRN (12:33)
[2022-11-13] MEDS ORDERED: THIAMINE HCL 500 MG in SYRINGE 9 ML IV SCH (12:34)
--- NOTE | 2022-11-13 12:49 | Electrocardiogram Report ---
Test Reason : Blood Pressure : / mmHG Vent. Rate : 097 BPM Atrial Rate : 097 BPM P-R Int : 150 ms QRS Dur : 088 ms QT Int : 374 ms P-R-T Axes : 052 013 042 degrees QTc Int : 474 ms Normal sinus rhythm Nonspecific T wave abnormality Prolonged QT Abnormal ECG When compared with ECG of 12-NOV-2022 14:21, Borderline criteria for Inferior infarct are no longer Present Nonspecific T wave abnormality, improved in Lateral leads Confirmed by Robert Evans ([id number]) on 11/13/2022 12:49:05 PM Referred By: REFERRED SELF Confirmed By:Gilbert Evans
[2022-11-13] MEDS: haloperidoL 5 MG TAB PO SCH ×2 (12:52→19:37)
[2022-11-13] MEDS: THIAMINE HCL 500 MG in SODIUM CHLORIDE 0.9% 50 ML IV SCH ×2 (14:07→21:11)
--- NOTE | 2022-11-13 16:19 | XRay Report ---
XR KUB pre MRI CLINICAL HISTORY: pre-MRI TECHNIQUE: 1 view of the abdomen was obtained. Comparison: None available at the time of this dictation. FINDINGS: Lung bases are unremarkable. Degenerative changes are seen in the visualized skeleton. The bowel gas pattern is nonobstructive. A moderate amount of stool is noted within the large bowel. IMPRESSION: No metallic foreign bodies are seen. Patient is cleared for MRI. ACT 112: Negative or not required by law. Electronically signed by: Abdirashid Ayon M.D. 11/13/2022 4:17 PM
[2022-11-13] MEDS ORDERED: traMADol HCL 50 MG TABLET PO PRN (17:27)
[2022-11-13] MEDS: TAMSULOSIN HCL 0.4 MG CAP PO SCH (19:38)
[2022-11-14] MEDS: LORazepam 2 MG/1 ML VIAL IV PRN ×4 (02:56→15:56)
[2022-11-14] MEDS: THIAMINE HCL 500 MG in SODIUM CHLORIDE 0.9% 50 ML IV SCH ×3 (06:13→20:06)
[2022-11-14 06:55] LABS: Basophils # (auto) 0.04 K/uL (0-0.2); Basophils % (auto) 0.5 %; Eosinophils # (auto) 0.11 K/uL (0-0.50); Eosinophils % (auto) 1.5 %; Hematocrit (blood only) 40.5 % (42.0-52.0); Hemoglobin 13.4 g/dl (14.0-18.0); Immature Granulocytes # (auto) 0.02 K/uL (0.01-0.20); Immature Granulocytes % (auto) 0.3 %; Lymphocytes % (auto) 16.1 %; Mean Corpuscular Hemoglobin 29.4 pg (25.0-34.0); Mean Corpuscular Hgb Conc 33.1 g/dL (32.0-36.0); Mean Corpuscular Volume 88.8 fL (80.0-100.0); Monocytes # (auto) 0.53 K/uL (0.11-0.59); Monocytes % (auto) 7.1 %; Neutrophils # (auto) 5.57 K/uL (1.40-6.50); Neutrophils % (auto) 74.5 %; Platelet Count 237 K/uL (130-400); RDW Coefficient of Variation 13.7 % (11.5-14.5); Red Blood Count 4.56 M/uL (4.70-6.10); White Blood Count 7.47 K/ul (4.8-10.8)
[2022-11-14 07:08] LABS: BUN Creatinine Ratio 10.8 (10-20); Calcium 9.4 mg/dl (8.6-10.3); Creatinine Clr Calc Pharmacy 80.4 ml/min; Est GFR (African American) 103.1 ml/min; Est GFR (Non-African American) 88.9 ml/min; Potassium 4.3 mmol/L (3.5-5.1)
[2022-11-14 07:35] LABS: Vitamin D, 25 Hydrox 7.6 ng/ml (30-100)
[2022-11-14] MEDS: CHOLECALCIFEROL 1,000 UNITS 25 MCG TAB PO SCH (08:58)
[2022-11-14] MEDS: haloperidoL 5 MG TAB PO SCH (08:58)
[2022-11-14] MEDS: amLODIPine BESYLATE 5 MG TAB PO SCH (08:58)
[2022-11-14] MEDS: FOLIC ACID 1 MG TAB PO SCH (08:58)
[2022-11-14] MEDS: LORazepam 2 MG/1 ML VIAL IV SCH ×4 (08:58→20:02)
--- NOTE | 2022-11-14 11:40 | Psychiatric Progress Note ---
Date of Service November 14, 2022 Impression / Recommendations Impression 62 yo man with history of anxiety, alcohol use disorder, chronic pain admitted medically for disorganized behaviors, confusion and labwork abnormalities. Psychiatry consulted for recommendations. Diagnostically unclear at this point. Presents with significant confabulations, thought disorganization, very tangential, loosened associations,and confusion. Differential remains very broad including Korsakoff syndrome (given prominent confabulations) versus neurological syndrome (though not presenting as any type of classic dementia-type syndrome and he denies any neurologic symptoms except numbness/tingling in his hands but with known history of cervical spine changes) versus acute delirium (from unknown medical cause vs substance-induced vs nvfkolcvc-aibkjfadpt-yzzso represent benzodiazepine withdrawal) versus primary psychiatric conditions including celia (hx per family medicine notes of bipolar depression though no evidence of any recent antipsychotics except Seroquel 50mg HS but recently on Wellbutrin which could have set off manic episode, unclear what his sleep has been like recently, sleeping fairly well here so far) vs primary psychotic disorder (though no clear delusions rather seems like reality- based confabulations). He cannot leave AMA as he clearly does not have decision making capacity to leave AMA or refuse any life saving medical treatments. He is not oriented to month or year, cannot tell me about any recent events and cannot describe any of his basic medical facts much less why he is being treated in the hospital. 11/14/2022: Ongoing altered mental status. Vit D low, folic acid normal. RPR pending. Continues to score on AWSS which raises concern for recent alcohol use versus increased benzodiazepine use and made mention today of possible cocaine use. Looking less like celia so will discontinue haldol given elevated QTc and will have available as a prn. (1) Altered mental status: (2) Cervical radiculopathy: Plan -Recommend 1-on-1 -He cannot leave AMA as he does not have decision making capacity, if attempts please call security -Recommend brain MRI if he can tolerate this -Haldol 5mg BID po prn for agitation/psychosis -Continue to monitor QTc closely, if exceeds 500ms then discontinue haldol -For behavioral emergency recommend: haldol 5mg IM and ativan 2mg IM (Do NOT exceed 10mg via IM sources in 24 hours) if QTc remains <500ms, recheck EKG if IM doses required -Agree with AWSS, thiamine and folic acid Interval History Identifying Information 62 yo man with history of anxiety, alcohol use disorder, chronic pain admitted medically for disorganized behaviors, confusion and labwork abnormalities. Psychiatry consulted for recommendations for altered mental status. Chief Complaint "It's the fifth month, 5, F-I-Z-O, 5". Subjective Subjective Patient was seen & assessed and interval progress reviewed. Could not tolerate brain MRI yesterday afternoon so goal for repeat attempt today. This morning already asking if nurse if he can leave by 11am. On meeting with Alejandro he states his mood is normal but wants to leave as "I need to go, I'm losing money". can't elaborate further on what he misses or what money he needs to make rather shifts the conversation to other topics. Doesn't seem that he recalls meeting from yesterday rather asks what group I'm from in terms of psychiatry. I explain I'm part of the [facility] group and a moment later ask him orientation questions to which he cannot recall [facility] as the name of the facility. Says we are at [facility], knows the city as [place], but cannot tell me the month or year. Initially states "I missed the first 3.5 months of the year so I believe it's August" then corrects himself with the board on the wall stating "it's the fifth month, 5, F-I-Z-O" but cannot recall the word for October even with prompting. States the year is 2024. He cannot provide any information about what happened over the last 24 hours or even prior to hospitalization. Seems to have no recollection of xray yesterday, meeting the police crime scene technician who came to look into how to get his dog food/basic needs, nor having him room changed. All he can recall about prior to hospitalization is describing being in his car with his dog and stopping a store and someone mentioning to him "you know you're slurring" which he describes as recognizing that he had spit coming out of his mouth. Continues to discuss events as timed around [place] including grief of his fiancee's then. Today tells me his mother in April (she in March). 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 Later mixes up his terms describing "[employer]" in place of [employer]. He denies any alcohol use in the last 3.5 years, denies any other substance use except his prescribed benzodiazepines. Today does recall that he's been seeing a new PCP but cannot recall his name and that they've been working to reduce his benzodiazepine use and "we've been talking a lot about not using codeine, cough syrup, that stuff's not good for you". Again denies any family contacts or supports we could reach out to. Declines to allow me to reach out to his primary care provider for additional records. He was documented as sleeping last night from 12am to 6am with one awakening at 3am. He denies any side effects from the haldol and took all scheduled doses. Physical Exam Psychiatric Orientation: alert, oriented to person and oriented to place; + not oriented to time Apperance: + disheveled Eye Contact: good eye contact Motor Behavior: no abnormal motor movements Speech: normal rate/rhythm/volume of speech (talkative) Affect: euthymic affect Mood: + irritable mood (wants to get home); no depressed mood Thought Process: + looseness of associations and + confabulations Thought Content: + paranoid Suicidal Thoughts: denies suicidal thoughts Homicidal Thoughts: denies homicidal thoughts Hallucinations: no auditory hallucinations and no visual hallucinations Cognition: + recent memory not intact, + remote memory not intact, + attention not intact and + language not intact (word finding difficulty) Insight: + severely impaired insight Judgment: + limited judgement Vital Signs (Past 24 Hours) Last Vital Signs Temp 37.3 C 11/14/22 09:43 Pulse 115 H 11/14/22 09:43 Resp 16 11/14/22 09:43 BP 116/81 11/14/22 09:43 Pulse Ox 99 11/14/22 09:43 O2 Del Method Room Air 11/14/22 09:43 Results & Data ([facility]) Laboratory Results Laboratory Results - last 24 hr 11/14/22 11/14/22 11/14/22 06:13 06:13 06:13 WBC 7.47 RBC 4.56 L Hgb 13.4 L Hct 40.5 L MCV 88.8 MCH 29.4 MCHC 33.1 RDW Std Deviation 44.0 RDW Coeff of Ruddy 13.7 Plt Count 237 MPV 10.0 Immature Gran % (Auto) 0.3 Neut % (Auto) 74.5 Lymph % (Auto) 16.1 [place] % (Auto) 7.1 Eos % (Auto) 1.5 Baso % (Auto) 0.5 Neut # (Auto) 5.57 Lymph # (Auto) 1.20 [place] # (Auto) 0.53 Eos # (Auto) 0.11 Baso # (Auto) 0.04 Immature Gran # (Auto) 0.02 Sodium Potassium Chloride Carbon Dioxide Anion Gap BUN Creatinine Est Cr Clr Drug Dosing Est GFR ( Amer) Est GFR (Non-Af Amer) BUN/Creatinine Ratio Glucose Calcium 25-OH Vitamin D Total 7.6 L Folate 6.40 RPR Pending 11/14/22 06:13 WBC RBC Hgb Hct MCV MCH MCHC RDW Std Deviation RDW Coeff of Ruddy Plt Count MPV Immature Gran % (Auto) Neut % (Auto) Lymph % (Auto) [place] % (Auto) Eos % (Auto) Baso % (Auto) Neut # (Auto) Lymph # (Auto) [place] # (Auto) Eos # (Auto) Baso # (Auto) Immature Gran # (Auto) Sodium 140 Potassium 4.3 D Chloride 108 H Carbon Dioxide 23 Anion Gap 9 BUN 10 Creatinine 0.93 Est Cr Clr Drug Dosing 80.4 Est GFR ( Amer) 103.1 Est GFR (Non-Af Amer) 88.9 BUN/Creatinine Ratio 10.8 Glucose 71 Calcium 9.4 25-OH Vitamin D Total Folate RPR Current Inpatient Medications Current Inpatient Medications: Current Inpatient Medications Amlodipine Besylate (Amlodipine Besylate 5 Mg Tab) 5 mg PO DAILY GIRMA Stop: 12/14/22 08:59 Last Admin: 11/14/22 08:58 Dose: 5 mg Folic Acid (Folic Acid 1 Mg Tab) 1 mg PO QAM GIRMA Stop: 12/14/22 08:59 Last Admin: 11/14/22 08:58 Dose: 1 mg Haloperidol (Haloperidol 5 Mg Tab) 5 mg PO BID GIRMA Stop: 12/13/22 12:14 Last Admin: 11/14/22 08:58 Dose: 5 mg Haloperidol Lactate (Haloperidol Lactate 5 Mg/Ml 1 Ml Vial) 5 mg IM BID PRN PRN Reason: severe agitation Stop: 12/13/22 12:32 Thiamine HCl 500 mg/ Sodium (Chloride) 55 mls @ 210 mls/hr IV Q8 GIRMA Stop: 12/13/22 12:59 Last Infusion: 11/14/22 06:31 Dose: Infused Lorazepam (Lorazepam 2 Mg/1 Ml Vial) 2 mg IV Q5M PRN PRN Reason: seizure Last Admin: 11/13/22 10:34 Dose: 2 mg Lorazepam (Lorazepam 2 Mg/1 Ml Vial) 1 mg IV QID GIRMA Stop: 12/13/22 12:59 Last Admin: 11/14/22 08:58 Dose: 1 mg Lorazepam (Lorazepam 2 Mg/1 Ml Vial) 2 mg IV UD PRN; Protocol PRN Reason: EtOH Withdrawal AWSS Score 8,9 Stop: 12/13/22 09:24 Last Admin: 11/13/22 22:18 Dose: 2 mg Lorazepam (Lorazepam 2 Mg/1 Ml Vial) 1 mg IV UD PRN; Protocol PRN Reason: EtOH Withdrawal AWSS Score 6,7 Stop: 12/13/22 09:24 Last Admin: 11/14/22 07:09 Dose: 1 mg Tamsulosin HCl (Tamsulosin Hcl 0.4 Mg Cap) 0.4 mg PO HS [facility] Stop: 12/13/22 20:59 Last Admin: 11/13/22 19:38 Dose: 0.4 mg Tramadol HCl (Tramadol Hcl 50 Mg Tablet) 50 mg PO Q6H PRN PRN Reason: pain Stop: 12/13/22 17:29 Vitamin D (Cholecalciferol 1,000 Units 25 Mcg Tab) 2,000 units PO QAM GIRMA Stop: 12/14/22 08:59 Last Admin: 11/14/22 08:58 Dose: 2,000 units
[2022-11-14] MEDS ORDERED: haloperidoL 5 MG TAB PO PRN (11:49)
[2022-11-14] MEDS ORDERED: LORazepam 2 MG/1 ML VIAL IV PRN (12:02)
[2022-11-14] MEDS ORDERED: GADOBUTROL 65ML VIAL IV ONE (13:37)
--- NOTE | 2022-11-14 14:28 | Neurology Consultation ---
Date of Consultation November 14, 2022 Assessment & Plan (1) Bipolar disorder with depression: Per my review of the record and interaction with the patient he does not appear encephalopathic as he does not have a fluctuating level of consciousness. To me, his presentation is more consistent with celia/psychosis. He has a normal MRI and normal versions therefore not Wernickes. Korsakoff is possible as is seizure with post-ictal psychosis which might explain his initial lactate elevation, but both are less likely in my opinion. Agree this is not dementia. Celia is also possible given his history of bipolar disorder, defer to psychiatry. Thiamine supplementation is reasonable and low risk, would continue as he does appear malnourished. I otherwise don't have any further neurologic testing to recommend. Telehealth Consultation Telehealth Information Telehealth Information: I performed this visit using a real-time telehealth connection between my location and the patients location ([facility]). After connecting through interactive tele-video, patient was identified by name and date of and/or wristband check.Patient (or authorized healthcare territory account representative) was informed that this was a telemedicine visit and it was being conducted confidentially over secure lines. My office door was closed and no one else was present in the room with me.Patient (or authorized healthcare territory account representative) provided consent to proceed with the visit, expressed an understanding of privacy and security of the telemedicine visit, and gave permission to have a hospital territory account representative in the room in order to assist with the visit and to conduct portions of the visit, as needed. I informed the patient (or authorized healthcare territory account representative) that I reviewed their record and presented the opportunity for them to ask any questions regarding the visit today. The patient agreed to participate. History of Present Illness Reason for Consultation: Altered behavior/confabulation Requesting Physician: Dr. Nichols Attending Physician: Erin Nichols MD History of Present Illness Alejandro Verdugo is a 62 yo M presenting initially with agitation and confusion after police were called for a welfare check. Since arrival he has been confabulating and is unable to provide a history. He believes he was with his friends and may have hit his head. He states that he quit drinking alcohol 3 years ago and has not relapsed. No history of seizure but he does report feeling generally weak. He denies any headache, focal weakness or numbness. No vision changes. During the initial minutes of the encounter he had difficulty attending to the telemedicine monitor and instead thought he was talking to his 1:1. Allergies Allergy/AdvReac Type Severity Reaction Status Date / Time No Known Allergies Allergy Verified 11/13/22 15:29 Home Medications Medication Instructions Recorded Confirmed Type amlodipine 5 mg tablet 5 mg PO DAILY 05/06/21 11/13/22 History lorazepam 1 mg tablet 1 mg PO TID PRN Unknown 05/06/21 11/13/22 History ngolxggzwmkc-wdn-xbzyv acid-vit 1 tab PO DAILY 05/06/21 09/13/22 History K-lycop 400 mcg-20 mcg-370 mcg tablet (One-A-Day Men's 50 Plus (with vitamin K)) tamsulosin 0.4 mg capsule 0.4 mg PO DAILY #90 caps 01/26/22 11/13/22 Rx tramadol 50 mg tablet 100 mg PO Q6H 09/13/22 11/13/22 History quetiapine 50 mg tablet 50 mg PO HS 11/13/22 11/13/22 History Patient History Medical History (Updated 11/13/22 @ 17:21 by Erin Nichols MD) BPH (benign prostatic hyperplasia) Cervical radiculopathy Cervical spondylosis History of substance abuse Left arm pain Neural foraminal stenosis of cervical spine Strain of neck muscle Surgical History S/P excision of lipoma (05/24/21) Dr. 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 Oriented to person only. Fluent with pressured speech, non-dysarthric. Speech is pressured and tangential. Cranial Nerves: II: pupils 3/3 to 2/2, III/IV/: Versions intact without nystagmus, no gaze preference. VII: Facial expression symmetric XII: Tongue midline Motor: Strength was symmetric and antigravity throughout. Pronator drift was absent. There were no abnormal movements, no tremor. Reflexes: Unable to assess over telemedicine Results & Data Vital Signs (Past 12 Hours) Vital Signs Temp Pulse Pulse Resp BP Pulse Ox O2 Del Method 11/14/22 11:54 37.3 C 107 H 16 143/87 H 99 Room Air 11/14/22 07:30 Room Air 11/14/22 07:30 117 H 11/14/22 09:43 37.3 C 115 H 16 116/81 99 Room Air 11/14/22 07:27 37.2 C 111 H 18 122/75 96 Room Air 11/14/22 02:30 68 11/14/22 02:32 36.3 C L 79 16 93/57 L 95 Room Air Laboratory Results Abnormal lab results 11/14/22 11/14/22 11/14/22 Range/Units 06:13 06:13 06:13 RBC 4.56 L (4.70-6.10) M/uL Hgb 13.4 L (14.0-18.0) g/dl Hct 40.5 L (42.0-52.0) % Chloride 108 H (98-107) mmol/L 25-OH Vitamin D Total 7.6 L (30-100) ng/ml Diagnostic Findings MRI Brain - Unremarkable
--- NOTE | 2022-11-14 16:49 | Hospitalist Progress Note ---
Date of Service November 14, 2022 Assessment & Plan (1) Acute encephalopathy: Plan: Patient with extreme agitation and delirium on EMS arrival with home disheveled. Past history of drug use per police but patient denies this Lactate elevated to 10 with anion gap metabolic acidosis, normalized following fluids. CK normal Alcohol is negative, benzo UDS is negative despite having a prescription for lorazepam, marijuana screen is positive. APAP mildly elevated and admits to taking Tylenol as needed for pain. Salicylates negative. Denies illicit drug use Patient is a recovering alcoholic. he denies any alcohol use in over 3 years He recently lost his fiance who of a drug overdose as well as his mother who in her 90s in the last few months He has a long history of a depressed mood as per family members, but no definite mental health diagnosis ever given He has been prescribed for lorazepam 4 times daily and tramadol up to 8 tablets a day for many years Seems somewhat improved with IV lorazepam, but with significant tangential conversation and confabulation, disorientation although somewhat improved today, No evidence of infection. MRI brain on 11/14 is negative Most likely consistent with delirium as per my discussion with psychiatry although unclear source Differential includes alcohol and/or benzodiazepine withdrawal, Wernicke's/Korsakoff's psychosis, acute celia with history of possible bipolar disorder. Has been on bupropion for the last few months which may have precipitated celia Greatly appreciate psychiatry consultation and recommendations Appreciate neurology recommendations Folate low normal-replace Thiamine level not drawn before replacement started -Change Haldol 5 Mg p.o. twice daily from scheduled to as needed as per psychiatry -Give Haldol 5 Mg IM twice daily as needed for continue severe agitation, can also give Ativan -AWSS scale with as needed Ativan as well as scheduled Ativan 1 mg 4 times daily which he takes at home Patient remains delirious on assessment, is unable to verbalize medical infor mation back as it applies to him, is not oriented to place, or year. He does not demonstrate capacity to leave AMA -Continue one-to-one sitter -Supportive care -Follow CBC, CMP, magnesium -Follow-up RPR, Lyme, HIV, hepatitis panel -Continue high-dose thiamine 500 Mg IV every 8 hours as does seem to have some improvement since starting this plus Haldol (2) Bipolar disorder with depression: Plan: Patient denies this diagnosis, but is noted in previous records Psych consulted for medication management as above Patient denies substance ingestion/overdose, SI/HI. Denies auditory/visual hallucinations but does have some paranoia Patient denies taking other medications for anxiety/depression including bupropion/quetiapine, is an unreliable historian at times Behavioral control as otherwise noted -Holding home bupropion, quetiapine, giving Haldol and Ativan as above (3) Metabolic acidosis: Plan: As above, with lactic acidosis for unknown cause-likely from dehydration or hypovolemia? Now resolved with IV fluids No evidence of sepsis or infection Blood pressures are elevated and not low Follow BMP (4) Neural foraminal stenosis of cervical spine: Plan: Cervical radiculopathy by history and sees pain management, had recent MRI With known cervical stenosis Patient endorses intermittent numbness/tingling and weakness in his hands, which is not currently present. MRI: 09/28/22: 1. No acute fracture, subluxation or marrow edema.. Discogenic degeneration with facet arthrosis as above.3. Moderate central canal stenosis at C5-C6 with multilevel neural foraminal narrowing.4. Normal signal of the cervical spinal cord. -Continue home tramadol as needed for pain although he has not taken any (5) Hypertension: Plan: Blood pressures are controlled Continue home amlodipine (6) BPH (benign prostatic hyperplasia): Plan: Continue home tamsulosin Discontinue Temple catheter placed on admission (7) Vitamin D deficiency: Plan: Vitamin D level checked at the recommendation of psychiatry-is quite low at 7 Start vitamin D replacement Plan Disposition-continued stay in PCU on telemetry monitoring. He is not allowed to leave [facility] at this time. Discussed his care in depth with his sister that he has a good relationship with. Her name is Fortino Taylor and her cell phone number is [phone] Admission and Anticipated Discharge Date Admission Date: November 14, 2022 Subjective Patient continues to be talkative with pressured speech, but is able to have some coherent thought intermittently today which is an improvement. He continues to insist on leaving the hospital. Continues to be tangential and confused. Has extremely short-term memory loss. Continues to deny any alcohol or drug use. Does not remember how he got here anything that happened yesterday. He is able to tell me his sister's name and his sister called in and he allowed me to speak with her on the phone. His sister tells me that the patient has a long history of depressed mood, unclear if previous suicide attempts. He does have a history of going to [facility] related incidents in the past. She does not know if he has ever been diagnosed with a mental health disorder including bipolar disorder. No hi story of drug abuse that she knows of. She does corroborate his story that his fiance was "the love of his life" and did indeed 2 days before [place] in 2021 of a drug overdose. 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 I did discuss his care with psychiatry and with neurology Telemetry with sinus tachycardia and PVCs with rates in the 110s to 130s Physical Exam Constitutional: WD/WN, vitals as above Eyes: + anicteric sclerae and EOM intact bilaterally; no conjunctival abnormality, no anisocoria and no nystagmus Respiratory: normal respiratory effort, lungs clear to auscultation Cardiovascular: RRR, no murmur, no edema Gastrointestinal (Abdomen): normal bowel sounds, soft, nontender, no hepatosplenomegaly Skin: + lesion (Multiple abrasions on the tops of feet and toes) Neurologic: CN's II-XI intact bilaterally, awake and + confused; no focal motor deficits Psychiatric: Orientation: alert, oriented to person and cooperative (More so today than previous); + not oriented to place and + not oriented to time Eye Contact: + fair eye contact Motor Behavior: n tremor Speech: + pressured speech Affect: + anxious affect Mood: + anxious mood Thought Process: + tangential thought process, + flight of ideas and + confabulations Thought Content: + paranoid Insight: + poor insight Judgment: + poor judgement Results & Data Results & Data Vital Signs (Past 12 Hours) Vital Signs Temp Pulse Pulse Resp BP Pulse Ox O2 Del Method 11/14/22 15:49 36.8 C 123 H 18 136/91 100 Room Air 11/14/22 11:54 37.3 C 107 H 16 143/87 H 99 Room Air 11/14/22 07:30 Room Air 11/14/22 07:30 117 H 11/14/22 09:43 37.3 C 115 H 16 116/81 99 Room Air 11/14/22 07:27 37.2 C 111 H 18 122/75 96 Room Air Laboratory Results CBC, BMP, folate, vitamin D level all reviewed Diagnostic Findings Brain MRI 11/14/22 12:33 MRI OF THE BRAIN WITHOUT AND WITH IV CONTRAST CLINICAL HISTORY: confusion, check for tumor,CVA COMPARISON STUDY: Head CT November 12, 2022. TECHNIQUE: Utilizing a 1.5 Lauren magnet and dedicated coil, multiplanar, multiecho imaging of the brain was performed pre and postcontrast administration. IV administration of 7 mL of Gadavist contrast was uneventful. FINDINGS: This exam is mildly compromised by motion artifact. There are no foci of restricted diffusion to suggest acute infarct. No acute intracranial hemorrhage, midline shift or mass effect is present. Ventricular system is unremarkable. The basal cisterns are patent. There are no extra-axial collections. Flow-voids for the major intracranial vessels are present. There is no intracranial mass or pathologic enhancement. Mild prominence of the extra- axial spaces is chronic. IMPRESSION: 1. No acute intracranial findings. Exam mildly compromised by motion artifact. 2. No intracranial mass or pathologic enhancement. ACT 112: Negative or not required by law. Electronically signed by: Ketan Pastrana M.D. 11/14/2022 5:58 PM PG Care Time/CCT Total # of Minutes Spent Total Time Spent with Patient: Total time spent is greater than 50% in coordination of care (as documented) at patient's floor/unit and/or counseling patient: Coding Level of Care Code 48658 SUB INP/OBS CARE 3/50MIN Diagnoses Acute encephalopathy G93.40 Bipolar disorder with depression F31.9 Metabolic acidosis E87.20 Neural foraminal stenosis of cervical spine M48.02 Hypertension I10 BPH (benign prostatic hyperplasia) N40.0 Vitamin D deficiency E55.9
--- NOTE | 2022-11-14 17:59 | Magnetic Resonance Report ---
MRI OF THE BRAIN WITHOUT AND WITH IV CONTRAST CLINICAL HISTORY: confusion, check for tumor,CVA COMPARISON STUDY: Head CT November 12, 2022. TECHNIQUE: Utilizing a 1.5 Lauren magnet and dedicated coil, multiplanar, multiecho imaging of the br ain was performed pre and postcontrast administration. IV administration of 7 mL of Gadavist contras t was uneventful. FINDINGS: This exam is mildly compromised by motion artifact. There are no foci of restricted diffusi on to suggest acute infarct. No acute intracranial hemorrhage, midline shift or mass effect is presen t. Ventricular system is unremarkable. The basal cisterns are patent. There are no extra-axial collec tions. Flow-voids for the major intracranial vessels are present. There is no intracranial mass or pa thologic enhancement. Mild prominence of the extra-axial spaces is chronic. IMPRESSION: 1. No acute intracranial findings. Exam mildly compromised by motion artifact. 2. No intracranial mass or pathologic enhancement. ACT 112: Negative or not required by law. Electronically signed by: Ketan Pastrana M.D. 11/14/2022 5:58 PM
[2022-11-14] MEDS: TAMSULOSIN HCL 0.4 MG CAP PO SCH (20:05)
[2022-11-15] MEDS: THIAMINE HCL 500 MG in SODIUM CHLORIDE 0.9% 50 ML IV SCH ×3 (05:07→20:37)
[2022-11-15 07:49] LABS: Basophils # (auto) 0.03 K/uL (0-0.2); Basophils % (auto) 0.4 %; Eosinophils # (auto) 0.09 K/uL (0-0.50); Eosinophils % (auto) 1.2 %; Hematocrit (blood only) 39.9 % (42.0-52.0); Hemoglobin 13.3 g/dl (14.0-18.0); Immature Granulocytes # (auto) 0.03 K/uL (0.01-0.20); Immature Granulocytes % (auto) 0.4 %; Lymphocytes % (auto) 15.2 %; Mean Corpuscular Hemoglobin 29.4 pg (25.0-34.0); Mean Corpuscular Hgb Conc 33.3 g/dL (32.0-36.0); Mean Corpuscular Volume 88.3 fL (80.0-100.0); Mean Platelet Volume 10.3 fL (9.4-12.4); Monocytes # (auto) 0.52 K/uL (0.11-0.59); Monocytes % (auto) 7.2 %; Neutrophils # (auto) 5.49 K/uL (1.40-6.50); Neutrophils % (auto) 75.6 %; Platelet Count 258 K/uL (130-400); RDW Coefficient of Variation 13.8 % (11.5-14.5); RDW Standard Deviation 44.1 fL (36.4-46.3); Red Blood Count 4.52 M/uL (4.70-6.10); White Blood Count 7.26 K/ul (4.8-10.8)
[2022-11-15 08:26] LABS: BUN Creatinine Ratio 19.8 (10-20); Calcium 9.3 mg/dl (8.6-10.3); Creatinine Clr Calc Pharmacy 82.3 ml/min; Est GFR (African American) 109.2 ml/min; Est GFR (Non-African American) 94.3 ml/min; Potassium 3.6 mmol/L (3.5-5.1)
[2022-11-15 08:30] LABS: Lyme Ab IgG w/WB Rflx Negative (Negative)
[2022-11-15 08:31] LABS: Lyme Ab IgM w/WB Rflx Negative (Negative)
[2022-11-15] MEDS: LORazepam 2 MG/1 ML VIAL IV SCH ×3 (09:18→17:37)
[2022-11-15] MEDS: SENNA 8.6 MG TAB PO SCH (09:18)
[2022-11-15] MEDS: CHOLECALCIFEROL 1,000 UNITS 25 MCG TAB PO SCH (09:19)
[2022-11-15] MEDS: amLODIPine BESYLATE 5 MG TAB PO SCH (09:19)
[2022-11-15] MEDS: POLYETHYLENE (MIRALAX) 17 GM PACK PO SCH (09:19)
[2022-11-15] MEDS: FOLIC ACID 1 MG TAB PO SCH (09:19)
--- NOTE | 2022-11-15 13:14 | Psychiatric Progress Note ---
Date of Service November 15, 2022 Impression / Recommendations Impression 62 yo man with history of anxiety, alcohol use disorder, chronic pain admitted medically for disorganized behaviors, confusion and labwork abnormalities. Psychiatry consulted for recommendations. Diagnostically unclear at this point. Presents with significant confabulations, thought disorganization, very tangential, loosened associations,and confusion. Differential remains very broad including Korsakoff syndrome (given prominent confabulations) versus neurological syndrome (though not presenting as any type of classic dementia-type syndrome and he denies any neurologic symptoms except numbness/tingling in his hands but with known history of cervical spine changes) versus acute delirium (from unknown medical cause vs substance-induced vs [id number] represent benzodiazepine withdrawal) versus primary psychiatric conditions including celia (hx per family medicine notes of bipolar depression though no evidence of any recent antipsychotics except Seroquel 50mg HS but recently on Wellbutrin which could have set off manic episode, unclear what his sleep has been like recently, sleeping fairly well here so far) vs primary psychotic disorder (though no clear delusions rather seems like reality- based confabulations). He cannot leave AMA due to ongoing signs of delirium and he does not have decision making capacity as he still cannot describe why he is in the hospital or what treatments are occurring nor risks/benefits of accepting nor refusing care. 11/15/2022: Slightly more oriented today and can recall a few more recent events though still mixing up the date of his fiancee's and sometimes reporting he was working the day he came into the hospital then corrects himself to recall he hasn't been working recently. Completed MOCA (Evarts Cognitive Assessment) and he did fairly well on some sections but scored 0/5 for short-term memory tests of 5 item recall and could not remember words even with category cuing. Score of 20/30 consistent with mild cognitive impairment versus ongoing delirium . Possible this was a very atypical presentation of celia as sleep was slightly worse last night and he recalls trying to drive somewhere and ended [place] and confused but no current symptoms to suggest ongoing acute celia and would be highly atypical to present for the first time this late in life especially without any signs of psychosis nor delusions. He does admit to sometimes taking one extra dose of Ativan "now and then" and so still wonder about possibility of benzo-induced or withdrawal delirium, particularly with his consistent scoring on AWSS initially, versus impact from recent cannabis use (which he also minimizes but acknowledges today when pressed). (1) Altered mental status: (2) Cervical radiculopathy: Plan -Recommend 1-on-1 -He cannot leave AMA as he does not have decision making capacity, if attempts please call security -Haldol 5mg BID po prn for agitation/psychosis -Continue to monitor QTc closely, if exceeds 500ms then discontinue haldol prn -For behavioral emergency recommend: haldol 5mg IM and ativan 2mg IM (Do NOT exceed 10mg via IM sources in 24 hours) if QTc remains <500ms, recheck EKG if IM doses required -Agree with AWSS, thiamine and folic acid Interval History Identifying Information 62 yo man with history of anxiety, alcohol use disorder, chronic pain admitted medically for disorganized behaviors, confusion and labwork abnormalities. Psychiatry consulted for recommendations for altered mental status. Chief Complaint "I'm feeling a little better today". Review of Systems Notes more intermittent sleep last night, eating Subjective Subjective Patient was seen & assessed and interval progress reviewed. He feels more like himself today. Less confused, knows the month and year today. Still very foggy on events prior to admission. Didn't sleep as well last night, he attributes this to years of waking up at 3:30am to work at [employer]. Speaks to being more depressed after the of his fiancee. Can't recall any recent changes in his health. Denies any recent alcohol use. Does recall going to a marijuana dispensary with a friend a few weeks ago and had an edible product. States he has been trying to reduce his benzodiazpine use and denies running out of his Ativan though does acknowledge times when he might take "1 extra" on days "I've locked the doors and am staying in the house". Recalls that a few weeks ago he went out to drive and "next thing I knew I saw a sign I was 20 miles from [place] and had to call my friend in [place] to help me figure out how to get home". He agrees that his recent memories haven't been very good. Consents to doing MOCA exam and shows good effort with this. Pleasant and cooperative during the interview. Provides consent for us to contact his sister Fortino. Physical Exam Psychiatric Orientation: alert, oriented to person, oriented to place, oriented to time and cooperative Apperance: + disheveled Eye Contact: good eye contact Motor Behavior: no abnormal motor movements Speech: normal rate/rhythm/volume of speech Affect: euthymic affect Mood: no depressed mood and no anxious mood Thought Process: goal directed thought process and + looseness of associations Thought Content: reality based without delusions Suicidal Thoughts: denies suicidal thoughts Homicidal Thoughts: denies homicidal thoughts Hallucinations: no auditory hallucinations and no visual hallucinations Cognition: remote memory grossly intact, attention grossly intact and language grossly intact (word finding difficulty); + recent memory not intact Insight: + limited insight Judgment: + limited judgement Vital Signs (Past 24 Hours) Last Vital Signs Temp 37.1 C 11/15/22 11:01 Pulse 93 H 11/15/22 11:01 Resp 18 11/15/22 11:01 BP 137/89 11/15/22 11:01 Pulse Ox 98 11/15/22 11:01 O2 Del Method Room Air 11/15/22 11:01 Results & Data ([facility]) Laboratory Results Laboratory Results - last 24 hr 11/14/22 11/15/22 11/15/22 06:13 06:43 06:43 WBC RBC Hgb Hct MCV MCH MCHC RDW Std Deviation RDW Coeff of Ruddy Plt Count MPV Immature Gran % (Auto) Neut % (Auto) Lymph % (Auto) [place] % (Auto) Eos % (Auto) Baso % (Auto) Neut # (Auto) Lymph # (Auto) [place] # (Auto) Eos # (Auto) Baso # (Auto) Immature Gran # (Auto) Sodium Potassium Chloride Carbon Dioxide Anion Gap BUN Creatinine Est Cr Clr Drug Dosing Est GFR ( Amer) Est GFR (Non-Af Amer) BUN/Creatinine Ratio Glucose Calcium RPR Nonreactive Lyme Disease IgG Ab Lyme Disease IgM Ab Hepatitis A IgM Ab Pending Hep Bs Antigen Pending Hep Bs Ag Confirmation Pending Hep B Core IgM Ab Pending Hepatitis C Ab (EIA) Pending Hep C Ab Signal/Cutoff Pending HIV (1&2) Ag & Ab Conf Pending 11/15/22 11/15/22 11/15/22 06:43 06:43 06:43 WBC 7.26 RBC 4.52 L Hgb 13.3 L Hct 39.9 L MCV 88.3 MCH 29.4 MCHC 33.3 RDW Std Deviation 44.1 RDW Coeff of Ruddy 13.8 Plt Count 258 MPV 10.3 Immature Gran % (Auto) 0.4 Neut % (Auto) 75.6 Lymph % (Auto) 15.2 [place] % (Auto) 7.2 Eos % (Auto) 1.2 Baso % (Auto) 0.4 Neut # (Auto) 5.49 Lymph # (Auto) 1.10 L [place] # (Auto) 0.52 Eos # (Auto) 0.09 Baso # (Auto) 0.03 Immature Gran # (Auto) 0.03 Sodium 140 Potassium 3.6 Chloride 108 H Carbon Dioxide 24 Anion Gap 8 BUN 17 Creatinine 0.86 Est Cr Clr Drug Dosing 82.3 Est GFR ( Amer) 109.2 Est GFR (Non-Af Amer) 94.3 BUN/Creatinine Ratio 19.8 Glucose 113 H Calcium 9.3 RPR Lyme Disease IgG Ab Negative Lyme Disease IgM Ab Negative Hepatitis A IgM Ab Hep Bs Antigen Hep Bs Ag Confirmation Hep B Core IgM Ab Hepatitis C Ab (EIA) Hep C Ab Signal/Cutoff HIV (1&2) Ag & Ab Conf Current Inpatient Medications Current Inpatient Medications: Current Inpatient Medications Amlodipine Besylate (Amlodipine Besylate 5 Mg Tab) 5 mg PO DAILY [facility] Stop: 12/14/22 08:59 Last Admin: 11/15/22 09:19 Dose: 5 mg Folic Acid (Folic Acid 1 Mg Tab) 1 mg PO QAM [facility] Stop: 12/14/22 08:59 Last Admin: 11/15/22 09:19 Dose: 1 mg Haloperidol (Haloperidol 5 Mg Tab) 5 mg PO BID PRN PRN Reason: Agitation/psychosis Stop: 12/13/22 12:14 Haloperidol Lactate (Haloperidol Lactate 5 Mg/Ml 1 Ml Vial) 5 mg IM BID PRN PRN Reason: severe agitation Stop: 12/13/22 12:32 Thiamine HCl 500 mg/ Sodium (Chloride) 55 mls @ 210 mls/hr IV Q8 [facility] Stop: 12/13/22 12:59 Last Infusion: 11/15/22 05:30 Dose: Infused Lorazepam (Lorazepam 2 Mg/1 Ml Vial) 2 mg IV Q5M PRN PRN Reason: seizure Last Admin: 11/13/22 10:34 Dose: 2 mg Lorazepam (Lorazepam 2 Mg/1 Ml Vial) 1 mg IV QID [facility] Stop: 12/13/22 12:59 Last Admin: 11/15/22 09:18 Dose: 1 mg Lorazepam (Lorazepam 2 Mg/1 Ml Vial) 2 mg IV UD PRN; Protocol PRN Reason: EtOH Withdrawal AWSS Score 8,9 Stop: 12/13/22 09:24 Last Admin: 11/13/22 22:18 Dose: 2 mg Lorazepam (Lorazepam 2 Mg/1 Ml Vial) 1 mg IV UD PRN; Protocol PRN Reason: EtOH Withdrawal AWSS Score 6,7 Stop: 12/13/22 09:24 Last Admin: 11/14/22 15:56 Dose: 1 mg Lorazepam (Lorazepam 2 Mg/1 Ml Vial) 2 mg IV ONCE PRN PRN Reason: prior to MRI Stop: 12/14/22 12:01 Last Admin: 11/14/22 12:33 Dose: 2 mg Polyethylene Glycol (Polyethylene (Miralax) 17 Gm Pack) 17 gm PO DAILY [facility] Stop: 12/15/22 08:59 Last Admin: 11/15/22 09:19 Dose: 17 gm Sennosides (Senna 8.6 Mg Tab) 17.2 mg PO QAM [facility] Stop: 12/15/22 08:59 Last Admin: 11/15/22 09:18 Dose: 17.2 mg Tamsulosin HCl (Tamsulosin Hcl 0.4 Mg Cap) 0.4 mg PO HS [facility] Stop: 12/13/22 20:59 Last Admin: 11/14/22 20:05 Dose: 0.4 mg Tramadol HCl (Tramadol Hcl 50 Mg Tablet) 50 mg PO Q6H PRN PRN Reason: pain Stop: 12/13/22 17:29 Vitamin D (Cholecalciferol 1,000 Units 25 Mcg Tab) 2,000 units PO QAM [facility] Stop: 12/14/22 08:59 Last Admin: 11/15/22 09:19 Dose: 2,000 units
--- NOTE | 2022-11-15 20:15 | Hospitalist Progress Note ---
Date of Service November 15, 2022 Assessment & Plan (1) Acute encephalopathy: Plan: Patient with extreme agitation and delirium on EMS arrival with home disheveled. Past history of drug use per police but patient denies this Lactate elevated to 10 with anion gap metabolic acidosis, normalized following fluids. CK normal Alcohol is negative, benzo UDS is negative despite having a prescription for lorazepam, marijuana screen is positive. APAP mildly elevated and admits to taking Tylenol as needed for pain. Salicylates negative. Denies illicit drug use Patient is a recovering alcoholic. he denies any alcohol use in over 3 years He recently lost his fiance who of a drug overdose as well as his mother who in her 90s in the last few months He has a long history of a depressed mood as per family members, but no definite mental health diagnosis ever given He has been prescribed for lorazepam 4 times daily and tramadol up to 8 tablets a day for many years Seems somewhat improved with IV lorazepam, but with significant tangential conversation and confabulation, disorientation although somewhat improved today, No evidence of infection. MRI brain on 11/14 is negative Most likely consistent with delirium as per my discussion with psychiatry although unclear source Differential includes alcohol and/or benzodiazepine withdrawal, Wernicke's/Korsakoff's psychosis, acute celia with history of possible bipolar disorder. Has been on bupropion for the last few months which may have precipitated celia Greatly appreciate psychiatry consultation and recommendations Appreciate neurology recommendations Folate low normal-replace Thiamine level not drawn before replacement started -Change Haldol 5 Mg p.o. twice daily from scheduled to as needed as per psychiatry -Give Haldol 5 Mg IM twice daily as needed for continue severe agitation, can also give Ativan -AWSS scale with as needed Ativan as well as scheduled Ativan 1 mg 4 times daily which he takes at home Patient remains delirious on assessment, is unable to verbalize medical infor mation back as it applies to him, is not oriented to place, or year. He does not demonstrate capacity to leave AMA -Continue one-to-one sitter -Supportive care -Follow CBC, CMP, magnesium -Follow-up RPR, Lyme, HIV, hepatitis panel -Continue high-dose thiamine 500 Mg IV every 8 hours as does seem to have some improvement since starting this plus Haldol (2) Bipolar disorder with depression: Plan: Patient denies this diagnosis, but is noted in previous records Psych consulted for medication management as above Patient denies substance ingestion/overdose, SI/HI. Denies auditory/visual hallucinations but does have some paranoia Patient denies taking other medications for anxiety/depression including bupropion/quetiapine, is an unreliable historian at times Behavioral control as otherwise noted -Holding home bupropion, quetiapine, giving Haldol and Ativan as above (3) Metabolic acidosis: Plan: As above, with lactic acidosis for unknown cause-likely from dehydration or hypovolemia? Now resolved with IV fluids No evidence of sepsis or infection Blood pressures are elevated and not low Follow BMP (4) Neural foraminal stenosis of cervical spine: Plan: Cervical radiculopathy by history and sees pain management, had recent MRI With known cervical stenosis Patient endorses intermittent numbness/tingling and weakness in his hands, which is not currently present. MRI: 09/28/22: 1. No acute fracture, subluxation or marrow edema.. Discogenic degeneration with facet arthrosis as above.3. Moderate central canal stenosis at C5-C6 with multilevel neural foraminal narrowing.4. Normal signal of the cervical spinal cord. -Continue home tramadol as needed for pain although he has not taken any (5) Hypertension: Plan: Blood pressures are controlled Continue home amlodipine (6) BPH (benign prostatic hyperplasia): Plan: Continue home tamsulosin Discontinue [place] catheter placed on admission (7) Vitamin D deficiency: Plan: Vitamin D level checked at the recommendation of psychiatry-is quite low at 7 Start vitamin D replacement Plan Disposition-continued stay in PCU on telemetry monitoring. He is not allowed to leave [place] at this time. Discussed his care in depth with his sister that he has a good relationship with. Her name is Fortino Taylor and her cell phone number is [phone] Admission and Anticipated Discharge Date Admission Date: November 14, 2022 Results & Data Results & Data Vital Signs (Past 12 Hours) Vital Signs Temp Pulse Resp BP Pulse Ox O2 Del Method 11/15/22 18:55 36.7 C 104 H 18 125/72 96 Room Air 11/15/22 17:50 36.9 C 113 H 18 117/78 98 Room Air 11/15/22 11:01 37.1 C 93 H 18 137/89 98 Room Air Laboratory Results Laboratory Results - last 24 hr 11/14/22 11/15/22 11/15/22 06:13 06:43 06:43 WBC RBC Hgb Hct MCV MCH MCHC RDW Std Deviation RDW Coeff of Ruddy Plt Count MPV Immature Gran % (Auto) Neut % (Auto) Lymph % (Auto) [place] % (Auto) Eos % (Auto) Baso % (Auto) Neut # (Auto) Lymph # (Auto) [place] # (Auto) Eos # (Auto) Baso # (Auto) Immature Gran # (Auto) Sodium Potassium Chloride Carbon Dioxide Anion Gap BUN Creatinine Est Cr Clr Drug Dosing Est GFR ( Amer) Est GFR (Non-Af Amer) BUN/Creatinine Ratio Glucose Calcium RPR Nonreactive Lyme Disease IgG Ab Lyme Disease IgM Ab Hepatitis A IgM Ab Pending Hep Bs Antigen Pending Hep Bs Ag Confirmation Pending Hep B Core IgM Ab Pending Hepatitis C Ab (EIA) Pending Hep C Ab Signal/Cutoff Pending HIV (1&2) Ag & Ab Conf Pending 11/15/22 11/15/22 11/15/22 06:43 06:43 06:43 WBC 7.26 RBC 4.52 L Hgb 13.3 L Hct 39.9 L MCV 88.3 MCH 29.4 MCHC 33.3 RDW Std Deviation 44.1 RDW Coeff of Ruddy 13.8 Plt Count 258 MPV 10.3 Immature Gran % (Auto) 0.4 Neut % (Auto) 75.6 Lymph % (Auto) 15.2 [place] % (Auto) 7.2 Eos % (Auto) 1.2 Baso % (Auto) 0.4 Neut # (Auto) 5.49 Lymph # (Auto) 1.10 L [place] # (Auto) 0.52 Eos # (Auto) 0.09 Baso # (Auto) 0.03 Immature Gran # (Auto) 0.03 Sodium 140 Potassium 3.6 Chloride 108 H Carbon Dioxide 24 Anion Gap 8 BUN 17 Creatinine 0.86 Est Cr Clr Drug Dosing 82.3 Est GFR ( Amer) 109.2 Est GFR (Non-Af Amer) 94.3 BUN/Creatinine Ratio 19.8 Glucose 113 H Calcium 9.3 RPR Lyme Disease IgG Ab Negative Lyme Disease IgM Ab Negative Hepatitis A IgM Ab Hep Bs Antigen Hep Bs Ag Confirmation Hep B Core IgM Ab Hepatitis C Ab (EIA) Hep C Ab Signal/Cutoff HIV (1&2) Ag & Ab Conf PG Care Time/CCT Total # of Minutes Spent Total Time Spent with Patient: Total time spent is greater than 50% in coordination of care (as documented) at patient's floor/unit and/or counseling patient: Coding Diagnoses Acute encephalopathy G93.40 Bipolar disorder with depression F31.9 Metabolic acidosis E87.20 Neural foraminal stenosis of cervical spine M48.02 Hypertension I10 BPH (benign prostatic hyperplasia) N40.0 Vitamin D deficiency E55.9
[2022-11-15] MEDS: LORazepam 1 MG TAB PO SCH (20:37)
[2022-11-15] MEDS: TAMSULOSIN HCL 0.4 MG CAP PO SCH (20:39)
[2022-11-16] MEDS: THIAMINE HCL 500 MG in SODIUM CHLORIDE 0.9% 50 ML IV SCH ×3 (05:46→14:44)
[2022-11-16] MEDS ORDERED: LORazepam 1 MG TAB PO STA (06:11)
[2022-11-16] MEDS: POLYETHYLENE (MIRALAX) 17 GM PACK PO SCH (08:13)
[2022-11-16] MEDS: FOLIC ACID 1 MG TAB PO SCH (08:14)
[2022-11-16] MEDS: SENNA 8.6 MG TAB PO SCH (08:14)
[2022-11-16] MEDS: CHOLECALCIFEROL 1,000 UNITS 25 MCG TAB PO SCH (08:15)
[2022-11-16] MEDS: amLODIPine BESYLATE 5 MG TAB PO SCH (08:15)
[2022-11-16] MEDS: LORazepam 1 MG TAB PO SCH ×2 (08:21→13:54)
[2022-11-16 09:07] LABS: Marijuana Quant, GCMS Urine 868 ng/mL (<5)
--- NOTE | 2022-11-16 10:20 | Psychiatric Progress Note ---
Date of Service November 16, 2022 Impression / Recommendations Impression 62 yo man with history of anxiety, alcohol use disorder, chronic pain admitted medically for disorganized behaviors, confusion and labwork abnormalities. Psychiatry consulted for recommendations. Diagnostically seems most consistent with delirium given dramatic improvement over a few days. Still seems to struggle at times with some short-term memory deficits but fully oriented and feels safe returning home. No 302 criteria as no evidence for acute psychiatric symptoms, denies SI and HI, no evidence for psychosis nor celia and is able to speak to how he will meet all of his self- care needs. Agree with long-term goal of taper to discontinuation of Ativan given concern that this may have contributed to acute episode of delirium vs recent cannabis use. Given resolution of delirium he is now felt to have decision making capacity to leave AMA or discharge if he chooses. (1) Altered mental status: (2) Cervical radiculopathy: Plan -Discontinue 1-on-1 -Would discharge with Ativan script (no more than TID prn per day) given long history of use and high risk for withdrawal; agree with his primary care provider's plan for taper to discontinuation over the next few months -Consider outpatient referral to neurology in 3-6 months if short-term memory deficits persist -Psych liaapril's left messages for his sister and outpatient therapist but did not hear back from them -He plans to follow-up weekly with his outpt therapist as he had been doing Interval History Identifying Information 62 yo man with history of anxiety, alcohol use disorder, chronic pain admitted medically for disorganized behaviors, confusion and labwork abnormalities. Psychiatry consulted for recommendations for altered mental status. Chief Complaint "I feel a lot better than yesterday". Subjective Subjective Patient was seen & assessed and interval progress reviewed. Slept 6 hours overnight. Fully oriented today including to specific date and day of the week. Continues to report stable mood. Denies SI. Denies HI. Denies any psychotic symptoms and no evidence of delusions nor paranoia. He wants to discharge today. Speaks to how he gets groceries and makes meals. Has a cleaning lady who helps him with the house. Goes to weekly televideo therapy sessions with his therapist and she is helping him process the grief of losing his fiancee. Physical Exam Psychiatric Orientation: alert, oriented x 3 and cooperative Apperance: appropriately dressed and appropriately groomed Eye Contact: good eye contact Motor Behavior: no abnormal motor movements Speech: normal rate/rhythm/volume of speech Affect: euthymic affect Mood: no depressed mood and no anxious mood Thought Process: goal directed thought process Thought Content: reality based without delusions Suicidal Thoughts: denies suicidal thoughts Homicidal Thoughts: denies homicidal thoughts Hallucinations: no auditory hallucinations and no visual hallucinations Cognition: remote memory grossly intact, attention grossly intact and language grossly intact; + recent memory not intact (still some mild short term deficits but much improved ) Insight: + fair insight Judgment: + fair judgement Vital Signs (Past 24 Hours) Last Vital Signs Temp 36.7 C 11/16/22 06:56 Pulse 98 H 11/16/22 06:56 Resp 18 11/16/22 06:56 BP 116/76 11/16/22 06:56 Pulse Ox 98 11/16/22 06:56 O2 Del Method Room Air 11/16/22 06:56 Results & Data ([facility]) Laboratory Results Laboratory Results - last 24 hr 11/12/22 11/15/22 14:25 06:43 U Marijuana THC Carboxy 868 H Drug Screen Comment SEE NOTE HIV (1&2) Ag & Ab Conf NON-REACTIVE Current Inpatient Medications Current Inpatient Medications: Current Inpatient Medications Amlodipine Besylate (Amlodipine Besylate 5 Mg Tab) 5 mg PO DAILY [facility] Stop: 12/14/22 08:59 Last Admin: 11/16/22 08:15 Dose: 5 mg Folic Acid (Folic Acid 1 Mg Tab) 1 mg PO QAM [facility] Stop: 12/14/22 08:59 Last Admin: 11/16/22 08:14 Dose: 1 mg Haloperidol (Haloperidol 5 Mg Tab) 5 mg PO BID PRN PRN Reason: Agitation/psychosis Stop: 12/13/22 12:14 Haloperidol Lactate (Haloperidol Lactate 5 Mg/Ml 1 Ml Vial) 5 mg IM BID PRN PRN Reason: severe agitation Stop: 12/13/22 12:32 Thiamine HCl 500 mg/ Sodium (Chloride) 55 mls @ 210 mls/hr IV Q8 [facility] Stop: 12/13/22 12:59 Last Infusion: 11/16/22 06:10 Dose: Infused Lorazepam (Lorazepam 2 Mg/1 Ml Vial) 2 mg IV Q5M PRN PRN Reason: seizure Last Admin: 11/13/22 10:34 Dose: 2 mg Lorazepam (Lorazepam 2 Mg/1 Ml Vial) 2 mg IV UD PRN; Protocol PRN Reason: EtOH Withdrawal AWSS Score 8,9 Stop: 12/13/22 09:24 Last Admin: 11/13/22 22:18 Dose: 2 mg Lorazepam (Lorazepam 2 Mg/1 Ml Vial) 1 mg IV UD PRN; Protocol PRN Reason: EtOH Withdrawal AWSS Score 6,7 Stop: 12/13/22 09:24 Last Admin: 11/14/22 15:56 Dose: 1 mg Lorazepam (Lorazepam 2 Mg/1 Ml Vial) 2 mg IV ONCE PRN PRN Reason: prior to MRI Stop: 12/14/22 12:01 Last Admin: 11/14/22 12:33 Dose: 2 mg Lorazepam (Lorazepam 1 Mg Tab) 1 mg PO TID [facility] Stop: 12/15/22 20:59 Last Admin: 11/16/22 08:21 Dose: 1 mg Polyethylene Glycol (Polyethylene (Miralax) 17 Gm Pack) 17 gm PO DAILY [facility] Stop: 12/15/22 08:59 Last Admin: 11/16/22 08:13 Dose: 17 gm Sennosides (Senna 8.6 Mg Tab) 17.2 mg PO QAM [facility] Stop: 12/15/22 08:59 Last Admin: 11/16/22 08:14 Dose: 17.2 mg Tamsulosin HCl (Tamsulosin Hcl 0.4 Mg Cap) 0.4 mg PO HS [facility] Stop: 12/13/22 20:59 Last Admin: 11/15/22 20:39 Dose: 0.4 mg Tramadol HCl (Tramadol Hcl 50 Mg Tablet) 50 mg PO Q6H PRN PRN Reason: pain Stop: 12/13/22 17:29 Vitamin D (Cholecalciferol 1,000 Units 25 Mcg Tab) 2,000 units PO QAM [facility] Stop: 12/14/22 08:59 Last Admin: 11/16/22 08:15 Dose: 2,000 units
--- NOTE | 2022-11-16 11:20 | Communication Note ---
Date of Service: November 16, 2022
[2022-11-16 13:58] LABS: HBSAG NON-REACTIVE (NON-REACTIVE); Hepatitis A Antibody IgM NON-REACTIVE (NON-REACTIVE); Hepatitis B Core Antibody IgM NON-REACTIVE (NON-REACTIVE)
[2022-11-16 15:05] LABS: Appearance Urine Clear (Clear); Bilirubin Urine Negative (Negative); Blood Urine Negative (Negative); Color Urine Yellow; Glucose Urine UA Negative (Negative); Ketones Urine Negative (Negative); Leukocyte Esterase Urine Negative (Negative); Nitrite Urine Negative (Negative); Protein Urine Negative (Negative); Specific Gravity Urine 1.008 (1.000-1.030); Urobilinogen Urine Negative (Negative)
[2022-11-16] MEDS ORDERED: FINASTERIDE 5 MG TAB PO SCH (15:30)
--- NOTE | 2022-11-16 16:07 | Discharge Summary ---
Date of Service November 16, 2022 Admission HPI Per Admitting Provider Alejandro Bonner is a 62-year-old male with a past medical history of cervical radiculopathy, alcohol use/intoxication, hypertension, bipolar disorder, rumination disorder, anxiety, cervical for aminal stenosis who was visited by [id number] salesman today and was found to be disheveled with a home in disarray and patient was extremely confused. EMS was called and noted that patient was combative, very confused, and not following commands. BSG 149. He received ketamine 300 mg IM by EMS and was transported to the ER with assistance of police. Per police patient has a history of substance/drug abuse. On arrival he was found to have a lactate of 10 without leukocytosis. VBG 7.2 03/24// and without troponin abnormality or transaminitis. Urine drug screen was positive for marijuana, but negative for cocaine/methamphetamine/PCP. BioFire was negative. CThead was without acute intracranial abnormality, CXR shows no acute process. Alcohol is negative. EKG sinus tachycardia no territorial ST segment changes. Hx stroke Speech is pressured and tangential. Patient is not oriented to place. Thinks he is in [place]) or year (thinks it is 1959). Frequently redirects to multiple deaths in the family in the last year and his fiance passing several months ago in May. Answers questions appropriately intermittently, denies SI/HI. 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 Used to work with [employer]. Last few days denies fevers, chills. Notes he sometimes gets sweats at night but this hasn't changed and is improved if he gets up and pees in the middle of the night. No dysuria. No polyuria. Denies chest pain, chest pressure. [place] very anxious last night and had a worry like feeling but no pain. No shortness of breath, n ocough. Interjects "Is it Monday, what are you doing here? Do you work at [employer]?" during HPI no problems lately. Denies being ill lately; Reporst he hasn't eaten much lately. Reports is eating more than he did 30 days ago, but doesn't remember the last time he aid. Denies auditory/visual hallucinations. Denies SI/HI. Endorses anxiety. Takes lorazepam TID for anxiety PRN.Denies drug use. No neck pain. No photosensitivy. No headache. Reports used to get neck pain, but none in in the last few months. Sees Dr. Mays [facility] as an outpatient. +dry mouth trying to keep words unslurred. Denies ETOH in 3 year.s Multiple deaths in the family Pain in hands and feel 'like a cake of calcium.' Has had shooting pain in hands and feet. +cervical stenosis of MRI last month. Feels his strenght and numbness tingling is actually doing well compared to last month, no tingling today and strength it better the last few days. Thought this was a ministroke, did not realize cervical stenosis was different. 05/2022 [facility] note reviewed History of hypertension, substance abuse, cervical stenosis. Anxiety on Seroquel and lorazepam, no SI/HI Essential hypertension stable and well-controlled on amlodipine Urinary frequency/LUTS stable on tamsulosin Chronic joint pain previously on tramadol External med reconciliation: Tramadol 50 mg 220 tablets last filled 11/09/2022 Lorazepam 1 mg 110 tablets last filled 10/22/2022 Bupropion slow release 150 mg twice daily tablets last prescribed 07/19/2022 Quetiapine 50 mg nightly last filled 09/22/2022 Discharge Data Allergies Allergy/AdvReac Type Severity Reaction Status Date / Time No Known Allergies Allergy Verified 11/13/22 15:29 Consultations 11/13/22 20:33 Consult Psychiatry Routine 11/14/22 12:03 Consult Neurology Routine Ordered Studies 11/12/22 14:19 CT head/brain wo con Stat 11/14/22 12:33 MR brain wo/w con Routine Discharge Plan Discharge Items Patient Disposition: Home - Self-Care Reason For Visit: Confusion Discharge Diagnosis: Confusion - likely due to medications - improved Activity: As commented below Activity Comment: gradually increase activity over the next 5-7 days Exercise/Sports: Wait until after follow-up appointment Driving/Machine Use: Resume 1 day after discharge Non-emergency contact: Primary Care Provider and Urologist Call non-emergency contact if: you have any medication questions, your symptoms worsen and you have a fever Follow-up/Referrals: Haja Cross MD [Physician] - 11/24/22 6:00 pm (Urology: Dr Cross November 24, 2022 @ 4PM) Lara Rosas [Primary Care Provider] - 11/23/22 10:05 am (PCP follow up: Dr Gaurang [address]: November 23, 2022 @ 10:05) Diet: Regular Addtl Attending Provider Instructions: Mr Verdugo, You were hospitalized for confusion. It was not fully certain what led to this but we suspect it may have been a combination of medications taken at home that caused it. MRI brain did not show any old or new stroke, tumor, blood, etc. We did find evidence of low folate levels and low vitamin D levels but these deficiencies typically do not cause confusion. You gradually improved over time with supportive care. The [facility] Psychiatry team saw you in consultation and recommended ongoing counseling with your counselor in [place]. They also recommended the following - 1. OK to continue using quetiapine 50mg at bedtime as needed for sleep, severe anxiety or agitation, etc. 2. DISCONTINUE bupropion (wellbutrin). 3. Continue to abstain from alcohol as you have been doing for several years. In addition, please try to limit the use of lorazepam and tramadol medications. DO NOT TAKE these medications together as they can cause sleepiness, confusion, etc. DO NOT DRIVE A CAR if you are taking either of these 2 medications. Additional recommendations - 1. thiamine 200mg twice daily x 30 days 2. folic acid 1mg daily x 30 days 3. ergocalciferol 51331 capsule - 1 capsule ONCE A WEEK x 8 weeks for vitamin D deficiency 4. please have your thiamine, folic acid, and vitamin D levels rechecked by your family doctor in a few months 5. for your prostate please start - finasteride 5mg once daily; take this medication in addition to your usual tamsulosin 6. see [facility] Urology as scheduled for your prostate and urinary stream issues 7. see your family doctor within 1 week; at this visit please mention the chronic nightsweats that you have been having Return to [facility] if - * you have fevers over 100 degrees * you have worsening anxiety, agitation, or confusion * you have thoughts of hurting yourself or anyone else * any other concerns It was our pleasure to care for you! Pending Studies at Discharge: Yes Studies:: urine culture Stand-Alone Forms: My [facility] TournEase, Smoking Cessation Medications and DC Order Prescriptions: New finasteride [Proscar] 5 mg Tablet 5 mg PO QAM Qty: 30 2RF folic acid 1 mg tablet 1 mg PO DAILY 30 Days Qty: 30 0RF thiamine HCl (vitamin B1) 100 mg tablet 200 mg PO BID 30 Days Qty: 120 0RF ergocalciferol (vitamin D2) 1,250 mcg (50,000 unit) capsule 50,000 unit PO .once a week 56 Days Qty: 8 0RF Rx Instructions: TAKE ONCE A WEEK FOR 8 WEEKS IN TOTAL. Continued tamsulosin 0.4 mg capsule 0.4 mg PO DAILY Qty: 90 3RF amlodipine 5 mg tablet 5 mg PO DAILY One-A-Day Men's 50 Plus(vit K) 400-20-370 mcg tablet 1 tab PO DAILY quetiapine 50 mg tablet 50 mg PO HS lorazepam 1 mg tablet 1 mg PO TID PRN (Reason: Unknown) Qty: 1 0RF Rx Instructions: please limit lorazepam to 3 times a day maximum. Changed tramadol 50 mg tablet 50 mg PO Q6H PRN (Reason: pain) Qty: 1 0RF Rx Instructions: please use sparingly if possible Discharge Orders: Discharge Order (Routine); Ordered 11/16/22 Ordered By: Tulio Thorpe Admission Data Admit Date/Time: 11/14/22 11:08 Attending Provider: Tulio Thorpe Admit Provider: Gary Tanner Primary Care Provider: Lara Rosas Other Providers: Maida Arzate ; Therese Morfin ; Dexter Zavala ; Kuldip Olivares Coding Diagnoses
== END 2022-11-16 16:35 | disposition home or self-care (01) | DRG 948 ==
LOC: ED 14:16 → EDINP 14:16 → SUATTDRO 17:33 → 1E 17:49 → 2S 11-13 22:24 → SUATTDRO 11-14 11:08

== ENCOUNTER 2023-01-30 13:23 | Inpatient (IN) ==
--- NOTE | 2023-01-30 13:48 | ED Triage Note ---
Date of Service January 30, 2023 History of Present Illness This patient was briefly evaluated while in triage. An abbreviated physical exam was performed. This patient is a 62-year-old Male who presents to the ED via ambulance from home for evaluation after he had a fall this morning-weak, couldn't walk, co uldn't breathe. Weaning off benzos under PCP guidance, feels like he's going through withdrawal, but symptoms have been coming and going, getting better and then worse. Physical Exam GENERAL: NAD, tachycardic, seated in a wheelchair CARDIOVASCULAR: tachycardic, regular RESPIRATORY: CTA ABDOMEN: BS x 4. Nontender to palpation. Initial orders for labs and / or imaging were placed and patient was placed in the waiting area until a bed is available. Please see further documentation for the full ED course.
[2023-01-30] MEDS ORDERED: SODIUM CHLORIDE 0.9% 1000ML 1,000 ML IV SCH (13:50)
[2023-01-30 14:20] LABS: Basophils # (auto) 0.03 K/uL (0-0.2); Basophils % (auto) 0.2 %; Hemoglobin 12.8 g/dl (14.0-18.0); Immature Granulocytes # (auto) 0.14 K/uL (0.01-0.20); Immature Granulocytes % (auto) 0.7 %; Lymphocytes # (auto) 2.19 K/uL (1.2-3.4); Lymphocytes % (auto) 11.2 %; Mean Corpuscular Hgb Conc 35.6 g/dL (32.0-36.0); Mean Corpuscular Volume 81.6 fL (80.0-100.0); Mean Platelet Volume 10.9 fL (9.4-12.4); Monocytes # (auto) 1.42 K/uL (0.11-0.59); Monocytes % (auto) 7.3 %; Neutrophils # (auto) 15.69 K/uL (1.40-6.50); Neutrophils % (auto) 80.6 %; Platelet Count 405 K/uL (130-400); RDW Coefficient of Variation 14.4 % (11.5-14.5); RDW Standard Deviation 41.7 fL (36.4-46.3); Red Blood Count 4.41 M/uL (4.70-6.10); White Blood Count 19.47 K/ul (4.8-10.8)
[2023-01-30 14:38] LABS: Alanine Aminotransferase 8 U/L (7-52); Albumin Globulin Ratio 1.8 (0.9-2); Albumin Level 4.6 gm/dl (3.4-5.0); Alkaline Phosphatase 57 U/L (34-104); Anion Gap 11 (3-11); Aspartate Aminotransferase 10 U/L (13-39); BUN Creatinine Ratio 40.5 (10-20); Bilirubin,Total 0.7 mg/dl (0.2-1.0); Blood Urea Nitrogen 34 mg/dl (6-23); Calcium 10.6 mg/dl (8.6-10.3); Carbon Dioxide 22 mmol/L (21-32); Chloride 102 mmol/L (98-107); Est GFR (African American) 110.3 ml/min; Est GFR (Non-African American) 95.2 ml/min; Globulin 2.6 gm/dl (2.5-4.0); Glucose 132 mg/dl (70-99(Fasting)); Potassium 3.2 mmol/L (3.5-5.1); Sodium 135 mmol/L (136-145); Total Protein 7.2 gm/dl (6.0-8.3)
[2023-01-30 14:43] LABS: Troponin I High Sensitivity 24.2 pg/ml (0-20)
--- NOTE | 2023-01-30 14:53 | XRay Report ---
XR chest 1V portable HISTORY: weakness COMPARISON: Chest 11/12/2022. FINDINGS: The lungs are clear. Cardiac silhouette is normal in size. No pleural effusions. No pneumot horax. IMPRESSION: No acute process. ACT 112: Negative or not required by law. Electronically signed by: Forest Enamorado M.D. 01/30/2023 2:52 PM
[2023-01-30] MEDS ORDERED: LORazepam 2 MG/1 ML VIAL IV STA (14:59)
[2023-01-30] MEDS ORDERED: SODIUM CHLORIDE 0.9% 1000ML 1,000 ML IV ONE (14:59)
--- NOTE | 2023-01-30 15:03 | Emergency Department Note ---
Impression & Plan Pulmonary embolism, Elevated troponin, Abnormal ECG, Leukocytosis, Elevated lactic acid level ED Provider Note NAME: JIMI JOSHUA AGE: 62 SEX: M : 1960 ARRIVES VIA: Ambulance INFORMANT: Patient ED PROVIDER(S): Tobin Toussaint DO CHIEF COMPLAINT: weakness HPI: Patient is a 62-year-old male with a past medical history of chronic pain, degenerative myelopathy, insomnia, alcohol abuse, BPH who presents to the ER for weakness. He notes that his primary care doctor was trying to get him off of his Ativan. He has been trying to try to get down over the past month. He notes that he has not taken any Ativan for the past 2 days. He cannot walk. He notes he has fallen multiple times today because he is too weak. He initially noted that he had some Ativan still at home but later elaborates that he does not have anything. He notes that he wants to stop. He denies drinking. PAST MEDICAL HISTORY:See Below PAST SURGICAL HISTORY:See Below FAMILY HISTORY:See Below SOCIAL HISTORY:See Below HOME MEDICATIONS:See Below ALLERGIES:See Below VITALS:See Below PHYSICAL EXAMINATION: GENERAL: Sitting up in bed, alert, well appearing, well nourished, no distress, non-toxic HEAD: NC/AT EYE EXAM: normal conjunctiva. PERRL and EOM's grossly intact. OROPHARYNX: no exudate, no erythema, lips, buccal mucosa, and tongue normal and mucous membranes are moist NECK: supple, no nuchal rigidity, no adenopathy, non-tender LUNGS: Clear to auscultation. Normal chest wall mechanics HEART: no murmurs, S1 normal and S2 normal ABDOMEN: abdomen soft, non-tender, normo-active bowel sounds, no masses, no rebound or guarding. UPPER EXTREMITIES: upper extremities are grossly normal. LOWER EXTREMITIES: No pitting edema. NEURO EXAM: Normal sensorium, cranial nerves II-XII intact, normal speech, no weakness of arms, no weakness of legs. No drift. Finger to nose intact. Gross sensation intact. MEDICAL DECISION MAKING: Patient is a 62-year-old male who presents ER for above-stated complaint. IV was established blood work was obtained. Patient was tachycardic and slightly h ypertensive. Labs show leukocytosis of nearly 20,000. No significant anemia. INR unremarkable. Dimer was elevated at 615 was performed as he was tachycardic with abnormal EKG and a slightly bumped troponin in the setting of shortness of breath. He had no belly pain. BMP with a mild hypokalemia 3.2. Calcium was slightly up at 10.6. LFTs bilirubin was unremarkable. Troponin was mildly bumped at 26. On repeat evaluation the CTPE showed a distended gallbladder. I discussed with the patient he notes no focal pain but a little bit of an upset stomach. Ultrasound was obtained. Showed no acute cholecystitis but I did discuss with the hospitalist for further evaluation management treatment. He was given a bolus of 2 L IV fluids as well as Zofran and IV Ativan. Heart rate trended down. He was placed on a heparin drip and bolus. He had no bleeding risk factors. Did discuss the risk and benefits of heparin including the risk of bleeding. He expressed understanding. He was placed on heparin. He was admitted for further work-up with Dr. Baltazar. Triage Nursing notes reviewed. Limited review of prior medical records performed Vital Signs: reviewed and remarkable for HTN, tachy Differential diagnosis: Infection, dehydration, metabolic abnormality, hypo/hyperglycemia, electrolyte disturbance, anemia, hypoxia, cardiac sources, intracerebral event, toxicologic, neurologic, as well as other pathologies. ER treatment provided: See below Diagnostics interpreted by me include EKG and cardiac monitoring as listed below: -Cardiac Monitoring: An order was placed for continuous cardiac monitoring. The monitor shows a rate of 110 with sinus rhythm. -ECG: Sinus tachycardia rate of 123 Normal axis T wave inversion in the inferior as well as lateral leads with ST depressions which is new from old -Laboratory studies:Interpreted by me as stated above in MDM and shown below. Imaging studies: Xrays: As interpreted by me: Portable AP upright 1 view of the chest shows no focal infiltrate per my read CTs show: CT of the head and angio of the chest was negative Consultation(s): As described in [facility] Procedures:none Critical Care: I have personally spent 32 minutes of critical care time in the direct management of this patient. This includes bedside care, interpretation of diagnostic studies, and testing, discussion with consultants, patient, and family members, and other required patient management activities. This 32 minutes is in excess of all separately billable procedures. Past Med/Surg History Medical History (Updated 08/07/23 @ 20:14 by Tobin Toussaint DO) Acute encephalopathy Anxiety Bipolar disorder with depression BPH (benign prostatic hyperplasia) Cervical radiculopathy Cervical spondylosis History of substance abuse Hypertension Left arm pain Neural foraminal stenosis of cervical spine Strain of neck muscle Vitamin D deficiency Surgical History S/P excision of lipoma (05/24/21) Dr. 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 Feels Safe at Home: Yes during the past year weight has: decreased > 10 lbs Assistive Devices: None Allergies Allergies Allergy/AdvReac Type Severity Reaction Status Date / Time No Known Allergies Allergy Verified 01/30/23 16:15 Home Meds Home Medications Medication Instructions Recorded Confirmed amlodipine 5 mg tablet 5 mg PO DAILY 05/06/21 01/30/23 quetiapine 50 mg tablet 50 mg PO HS 11/13/22 01/30/23 folic acid 1 mg tablet 1 mg PO DAILY 12/29/22 01/30/23 montelukast 10 mg tablet 10 mg PO DAILY 12/29/22 01/30/23 multivitamin with minerals-folic 1 tab PO DAILY 01/30/23 01/30/23 acid 200 mcg chewable tablet (Men's Daily Gummies) thiamine HCl (vitamin B1) 100 mg 200 mg PO BID 01/30/23 01/30/23 tablet (Vitamin B-1) Previous Rx's Medication Instructions Recorded finasteride 5 mg tablet (Proscar) 5 mg PO QAM #30 tabs 11/16/22 lorazepam 1 mg tablet 1 mg PO TID PRN Unknown #1 tab 11/16/22 tramadol 50 mg tablet 50 mg PO Q6H PRN pain #1 tab 11/16/22 tamsulosin 0.4 mg capsule 0.8 mg PO DAILY #180 caps 12/29/22 Results & Data (ED) Vital Signs Vital Signs - 24 hr 01/30/23 13:43 01/30/23 14:05 01/30/23 14:16 Temperature 36.4 C L Temperature Source Temporal Artery Scan Pulse Rate 140 H 120 H Pulse Rate [Apical] 106 H Pulse Rate from SpO2 Sensor Pulse Rhythm Regular Pulse Rhythm [Apical] Regular Pulse Strength Normal Pulse Strength [Apical] Respiratory Rate 18 18 Respiratory Effort / Characteristics Non-Labored Respiratory Depth Normal Respiratory Pattern Regular Blood Pressure 118/86 Blood Pressure [Left Arm] 143/101 H Blood Pressure Mean 96 Blood Pressure Mean [Left Arm] 115 Blood Pressure Position Sitting Blood Pressure Position [Left Arm] Pulse Oximetry 100 95 Oxygen Delivery Method Room Air Room Air Sepsis Recent Fever Within 48 Hours No Sepsis New/Unexplained Change in Mental Status No Sepsis Action Taken by Nursing No Action Required 01/30/23 18:00 01/30/23 14:00 01/30/23 14:00 Temperature 36.8 C Temperature Source Oral Pulse Rate 121 H Pulse Rate [Apical] 67 Pulse Rate from SpO2 Sensor Pulse Rhythm Pulse Rhythm [Apical] Regular Pulse Strength Pulse Strength [Apical] Normal Respiratory Rate 16 11 L Respiratory Effort / Characteristics Non-Labored Spontaneous Respiratory Depth Normal Respiratory Pattern Regular Blood Pressure 143/101 H Blood Pressure [Left Arm] 130/76 Blood Pressure Mean 106 Blood Pressure Mean [Left Arm] 94 Blood Pressure Position Blood Pressure Position [Left Arm] Semi-fowlers Pulse Oximetry 100 Oxygen Delivery Method Room Air Sepsis Recent Fever Within 48 Hours Sepsis New/Unexplained Change in Mental Status Sepsis Action Taken by Nursing 01/30/23 14:30 01/30/23 14:30 01/30/23 15:00 Temperature Temperature Source Pulse Rate 109 H Pulse Rate [Apical] Pulse Rate from SpO2 Sensor 109 H Pulse Rhythm Pulse Rhythm [Apical] Pulse Strength Pulse Strength [Apical] Respiratory Rate 10 L Respiratory Effort / Characteristics Respiratory Depth Respiratory Pattern Blood Pressure 127/86 168/85 H Blood Pressure [Left Arm] Blood Pressure Mean 90 133 Blood Pressure Mean [Left Arm] Blood Pressure Position Blood Pressure Position [Left Arm] Pulse Oximetry 100 Oxygen Delivery Method Sepsis Recent Fever Within 48 Hours Sepsis New/Unexplained Change in Mental Status Sepsis Action Taken by Nursing 01/30/23 15:00 01/30/23 15:30 01/30/23 16:00 Temperature Temperature Source Pulse Rate 87 73 88 Pulse Rate [Apical] Pulse Rate from SpO2 Sensor 80 86 Pulse Rhythm Pulse Rhythm [Apical] Pulse Strength Pulse Strength [Apical] Respiratory Rate 6 L 7 L 15 Respiratory Effort / Characteristics Respiratory Depth Respiratory Pattern Blood Pressure Blood Pressure [Left Arm] Blood Pressure Mean Blood Pressure Mean [Left Arm] Blood Pressure Position Blood Pressure Position [Left Arm] Pulse Oximetry 100 97 Oxygen Delivery Method Sepsis Recent Fever Within 48 Hours Sepsis New/Unexplained Change in Mental Status Sepsis Action Taken by Nursing 01/30/23 16:30 01/30/23 17:00 01/30/23 17:51 Temperature Temperature Source Pulse Rate 72 82 64 Pulse Rate [Apical] Pulse Rate from SpO2 Sensor 78 82 Pulse Rhythm Pulse Rhythm [Apical] Pulse Strength Pulse Strength [Apical] Respiratory Rate 15 9 L 8 L Respiratory Effort / Characteristics Respiratory Depth Respiratory Pattern Blood Pressure Blood Pressure [Left Arm] Blood Pressure Mean Blood Pressure Mean [Left Arm] Blood Pressure Position Blood Pressure Position [Left Arm] Pulse Oximetry 100 99 Oxygen Delivery Method Sepsis Recent Fever Within 48 Hours Sepsis New/Unexplained Change in Mental Status Sepsis Action Taken by Nursing 01/30/23 18:00 01/30/23 18:29 01/30/23 18:29 Temperature Temperature Source Pulse Rate 92 H 63 Pulse Rate [Apical] Pulse Rate from SpO2 Sensor 93 H 64 Pulse Rhythm Pulse Rhythm [Apical] Pulse Strength Pulse Strength [Apical] Respiratory Rate 14 13 Respiratory Effort / Characteristics Respiratory Depth Respiratory Pattern Blood Pressure 127/61 Blood Pressure [Left Arm] Blood Pressure Mean 80 Blood Pressure Mean [Left Arm] Blood Pressure Position Blood Pressure Position [Left Arm] Pulse Oximetry 100 100 Oxygen Delivery Method Sepsis Recent Fever Within 48 Hours Sepsis New/Unexplained Change in Mental Status Sepsis Action Taken by Nursing 01/30/23 18:30 01/30/23 18:31 01/30/23 18:31 Temperature Temperature Source Pulse Rate 67 67 Pulse Rate [Apical] Pulse Rate from SpO2 Sensor 67 68 Pulse Rhythm Pulse Rhythm [Apical] Pulse Strength Pulse Strength [Apical] Respiratory Rate 16 11 L Respiratory Effort / Characteristics Respiratory Depth Respiratory Pattern Blood Pressure 130/76 Blood Pressure [Left Arm] Blood Pressure Mean 91 Blood Pressure Mean [Left Arm] Blood Pressure Position Blood Pressure Position [Left Arm] Pulse Oximetry 100 100 Oxygen Delivery Method Sepsis Recent Fever Within 48 Hours Sepsis New/Unexplained Change in Mental Status Sepsis Action Taken by Nursing 01/30/23 19:00 01/30/23 19:00 01/30/23 19:30 Temperature Temperature Source Pulse Rate 66 Pulse Rate [Apical] Pulse Rate from SpO2 Sensor 66 Pulse Rhythm Pulse Rhythm [Apical] Pulse Strength Pulse Strength [Apical] Respiratory Rate 9 L Respiratory Effort / Characteristics Respiratory Depth Respiratory Pattern Blood Pressure 146/81 H 137/79 Blood Pressure [Left Arm] Blood Pressure Mean 112 91 Blood Pressure Mean [Left Arm] Blood Pressure Position Blood Pressure Position [Left Arm] Pulse Oximetry 100 Oxygen Delivery Method Sepsis Recent Fever Within 48 Hours Sepsis New/Unexplained Change in Mental Status Sepsis Action Taken by Nursing 01/30/23 19:30 Temperature Temperature Source Pulse Rate 61 Pulse Rate [Apical] Pulse Rate from SpO2 Sensor 62 Pulse Rhythm Pulse Rhythm [Apical] Pulse Strength Pulse Strength [Apical] Respiratory Rate 10 L Respiratory Effort / Characteristics Respiratory Depth Respiratory Pattern Blood Pressure Blood Pressure [Left Arm] Blood Pressure Mean Blood Pressure Mean [Left Arm] Blood Pressure Position Blood Pressure Position [Left Arm] Pulse Oximetry 100 Oxygen Delivery Method Room Air Sepsis Recent Fever Within 48 Hours Sepsis New/Unexplained Change in Mental Status Sepsis Action Taken by Nursing Laboratory Data 01/30/23 14:02 01/30/23 14:02 Lab Results 01/30/23 01/30/23 01/30/23 Range/Units 14:02 14:02 14:02 WBC 19.47 H (4.8-10.8) K/ul RBC 4.41 L (4.70-6.10) M/uL Hgb 12.8 L (14.0-18.0) g/dl Hct 36.0 L (42.0-52.0) % MCV 81.6 (80.0-100.0) fL MCH 29.0 (25.0-34.0) pg MCHC 35.6 (32.0-36.0) g/dL RDW Std Deviation 41.7 (36.4-46.3) fL RDW Coeff of Ruddy 14.4 (11.5-14.5) % Plt Count 405 H (130-400) K/uL MPV 10.9 (9.4-12.4) fL Immature Gran % (Auto) 0.7 % Neut % (Auto) 80.6 % Lymph % (Auto) 11.2 % [place] % (Auto) 7.3 % Eos % (Auto) 0.0 % Baso % (Auto) 0.2 % Neut # (Auto) 15.69 H (1.40-6.50) K/uL Lymph # (Auto) 2.19 (1.2-3.4) K/uL [place] # (Auto) 1.42 H (0.11-0.59) K/uL Eos # (Auto) 0.00 (0-0.50) K/uL Baso # (Auto) 0.03 (0-0.2) K/uL Immature Gran # (Auto) 0.14 (0.01-0.20) K/uL PT (9.0-12.0) Seconds INR (0.9-1.1) APTT (21.0-31.0) Seconds PTT Ratio D-Dimer 650 H* (0-500) ug/L FEU Sodium 135 L (136-145) mmol/L Potassium 3.2 L (3.5-5.1) mmol/L Chloride 102 (98-107) mmol/L Carbon Dioxide 22 (21-32) mmol/L Anion Gap 11 (3-11) BUN 34 H (6-23) mg/dl Creatinine 0.84 (0.6-1.4) mg/dl Est Cr Clr Drug Dosing Not Reportable Est GFR ( Amer) 110.3 ml/min Est GFR (Non-Af Amer) 95.2 ml/min BUN/Creatinine Ratio 40.5 H (10-20) Glucose 132 H (70-99(Fasting)) mg/dl Lactate (0.4-2.0) mmol/L Calcium 10.6 H (8.6-10.3) mg/dl Phosphorus (2.5-4.9) mg/dl Magnesium (1.7-2.4) mg/dl Total Bilirubin 0.7 (0.2-1.0) mg/dl AST 10 L (13-39) U/L ALT 8 (7-52) U/L Alkaline Phosphatase 57 (34-104) U/L Total Creatine Kinase (30-223) U/L Troponin I High Sens 24.2 H (0-20) pg/ml Total Protein 7.2 (6.0-8.3) gm/dl Albumin 4.6 (3.4-5.0) gm/dl Globulin 2.6 (2.5-4.0) gm/dl Albumin/Globulin Ratio 1.8 (0.9-2) Lipase (11-82) U/L Procalcitonin (0-0.5) ng/ml Urine Color Urine Appearance (Clear) Urine pH (4.5-7.5) Ur Specific [place] (1.000-1.030) Urine Protein (Negative) Urine Glucose (UA) (Negative) Urine Ketones (Negative) Urine Blood (Negative) Urine Nitrite (Negative) Urine Bilirubin (Negative) Urine Urobilinogen (Negative) Ur Leukocyte Esterase (Negative) Urine Opiates Screen (Neg) Ur Methadone, Qual (Neg) Urine Barbiturates (Neg) Ur Phencyclidine (PCP) (Neg) U Amphetamin/Meth Scrn (Neg) MDMA (Ecstasy) Screen (Neg) U Benzodiazepines Scrn (Neg) Ur Cocaine Metabolite (Neg) U Marijuana (THC) Screen (Neg) 01/30/23 01/30/23 01/30/23 Range/Units 14:02 15:31 15:31 WBC (4.8-10.8) K/ul RBC (4.70-6.10) M/uL Hgb (14.0-18.0) g/dl Hct (42.0-52.0) % MCV (80.0-100.0) fL MCH (25.0-34.0) pg MCHC (32.0-36.0) g/dL RDW Std Deviation (36.4-46.3) fL RDW Coeff of Ruddy (11.5-14.5) % Plt Count (130-400) K/uL MPV (9.4-12.4) fL Immature Gran % (Auto) % Neut % (Auto) % Lymph % (Auto) % [place] % (Auto) % Eos % (Auto) % Baso % (Auto) % Neut # (Auto) (1.40-6.50) K/uL Lymph # (Auto) (1.2-3.4) K/uL [place] # (Auto) (0.11-0.59) K/uL Eos # (Auto) (0-0.50) K/uL Baso # (Auto) (0-0.2) K/uL Immature Gran # (Auto) (0.01-0.20) K/uL PT 11.9 (9.0-12.0) Seconds INR 1.1 (0.9-1.1) APTT 25.2 (21.0-31.0) Seconds PTT Ratio 0.9 D-Dimer (0-500) ug/L FEU Sodium (136-145) mmol/L Potassium (3.5-5.1) mmol/L Chloride (98-107) mmol/L Carbon Dioxide (21-32) mmol/L Anion Gap (3-11) BUN (6-23) mg/dl Creatinine (0.6-1.4) mg/dl Est Cr Clr Drug Dosing Est GFR ( Amer) ml/min Est GFR (Non-Af Amer) ml/min BUN/Creatinine Ratio (10-20) Glucose (70-99(Fasting)) mg/dl Lactate 2.3 H* (0.4-2.0) mmol/L Calcium (8.6-10.3) mg/dl Phosphorus 3.3 (2.5-4.9) mg/dl Magnesium 2.0 (1.7-2.4) mg/dl Total Bilirubin (0.2-1.0) mg/dl AST (13-39) U/L ALT (7-52) U/L Alkaline Phosphatase (34-104) U/L Total Creatine Kinase 20 L (30-223) U/L Troponin I High Sens (0-20) pg/ml Total Protein (6.0-8.3) gm/dl Albumin (3.4-5.0) gm/dl Globulin (2.5-4.0) gm/dl Albumin/Globulin Ratio (0.9-2) Lipase 39 (11-82) U/L Procalcitonin (0-0.5) ng/ml Urine Color Urine Appearance (Clear) Urine pH (4.5-7.5) Ur Specific [place] (1.000-1.030) Urine Protein (Negative) Urine Glucose (UA) (Negative) Urine Ketones (Negative) Urine Blood (Negative) Urine Nitrite (Negative) Urine Bilirubin (Negative) Urine Urobilinogen (Negative) Ur Leukocyte Esterase (Negative) Urine Opiates Screen (Neg) Ur Methadone, Qual (Neg) Urine Barbiturates (Neg) Ur Phencyclidine (PCP) (Neg) U Amphetamin/Meth Scrn (Neg) MDMA (Ecstasy) Screen (Neg) U Benzodiazepines Scrn (Neg) Ur Cocaine Metabolite (Neg) U Marijuana (THC) Screen (Neg) 01/30/23 01/30/23 01/30/23 Range/Units 15:32 15:44 15:44 WBC (4.8-10.8) K/ul RBC (4.70-6.10) M/uL Hgb (14.0-18.0) g/dl Hct (42.0-52.0) % MCV (80.0-100.0) fL MCH (25.0-34.0) pg MCHC (32.0-36.0) g/dL RDW Std Deviation (36.4-46.3) fL RDW Coeff of Ruddy (11.5-14.5) % Plt Count (130-400) K/uL MPV (9.4-12.4) fL Immature Gran % (Auto) % Neut % (Auto) % Lymph % (Auto) % [place] % (Auto) % Eos % (Auto) % Baso % (Auto) % Neut # (Auto) (1.40-6.50) K/uL Lymph # (Auto) (1.2-3.4) K/uL [place] # (Auto) (0.11-0.59) K/uL Eos # (Auto) (0-0.50) K/uL Baso # (Auto) (0-0.2) K/uL Immature Gran # (Auto) (0.01-0.20) K/uL PT (9.0-12.0) Seconds INR (0.9-1.1) APTT (21.0-31.0) Seconds PTT Ratio D-Dimer (0-500) ug/L FEU Sodium (136-145) mmol/L Potassium (3.5-5.1) mmol/L Chloride (98-107) mmol/L Carbon Dioxide (21-32) mmol/L Anion Gap (3-11) BUN (6-23) mg/dl Creatinine (0.6-1.4) mg/dl Est Cr Clr Drug Dosing Est GFR ( Amer) ml/min Est GFR (Non-Af Amer) ml/min BUN/Creatinine Ratio (10-20) Glucose (70-99(Fasting)) mg/dl Lactate (0.4-2.0) mmol/L Calcium (8.6-10.3) mg/dl Phosphorus (2.5-4.9) mg/dl Magnesium (1.7-2.4) mg/dl Total Bilirubin (0.2-1.0) mg/dl AST (13-39) U/L ALT (7-52) U/L Alkaline Phosphatase (34-104) U/L Total Creatine Kinase (30-223) U/L Troponin I High Sens (0-20) pg/ml Total Protein (6.0-8.3) gm/dl Albumin (3.4-5.0) gm/dl Globulin (2.5-4.0) gm/dl Albumin/Globulin Ratio (0.9-2) Lipase (11-82) U/L Procalcitonin < 0.05 (0-0.5) ng/ml Urine Color Yellow Urine Appearance Clear (Clear) Urine pH 5.5 (4.5-7.5) Ur Specific [place] 1.023 (1.000-1.030) Urine Protein Negative (Negative) Urine Glucose (UA) Negative (Negative) Urine Ketones 1+ H (Negative) Urine Blood Negative (Negative) Urine Nitrite Negative (Negative) Urine Bilirubin Negative (Negative) Urine Urobilinogen Negative (Negative) Ur Leukocyte Esterase Negative (Negative) Urine Opiates Screen Neg (Neg) Ur Methadone, Qual Neg (Neg) Urine Barbiturates Neg (Neg) Ur Phencyclidine (PCP) Neg (Neg) U Amphetamin/Meth Scrn Neg (Neg) MDMA (Ecstasy) Screen Neg (Neg) U Benzodiazepines Scrn Neg (Neg) Ur Cocaine Metabolite Neg (Neg) U Marijuana (THC) Screen Pos H (Neg) 01/30/23 Range/Units 17:48 WBC (4.8-10.8) K/ul RBC (4.70-6.10) M/uL Hgb (14.0-18.0) g/dl Hct (42.0-52.0) % MCV (80.0-100.0) fL MCH (25.0-34.0) pg MCHC (32.0-36.0) g/dL RDW Std Deviation (36.4-46.3) fL RDW Coeff of Ruddy (11.5-14.5) % Plt Count (130-400) K/uL MPV (9.4-12.4) fL Immature Gran % (Auto) % Neut % (Auto) % Lymph % (Auto) % [place] % (Auto) % Eos % (Auto) % Baso % (Auto) % Neut # (Auto) (1.40-6.50) K/uL Lymph # (Auto) (1.2-3.4) K/uL [place] # (Auto) (0.11-0.59) K/uL Eos # (Auto) (0-0.50) K/uL Baso # (Auto) (0-0.2) K/uL Immature Gran # (Auto) (0.01-0.20) K/uL PT (9.0-12.0) Seconds INR (0.9-1.1) APTT (21.0-31.0) Seconds PTT Ratio D-Dimer (0-500) ug/L FEU Sodium (136-145) mmol/L Potassium (3.5-5.1) mmol/L Chloride (98-107) mmol/L Carbon Dioxide (21-32) mmol/L Anion Gap (3-11) BUN (6-23) mg/dl Creatinine (0.6-1.4) mg/dl Est Cr Clr Drug Dosing Est GFR ( Amer) ml/min Est GFR (Non-Af Amer) ml/min BUN/Creatinine Ratio (10-20) Glucose (70-99(Fasting)) mg/dl Lactate 1.6 (0.4-2.0) mmol/L Calcium (8.6-10.3) mg/dl Phosphorus (2.5-4.9) mg/dl Magnesium (1.7-2.4) mg/dl Total Bilirubin (0.2-1.0) mg/dl AST (13-39) U/L ALT (7-52) U/L Alkaline Phosphatase (34-104) U/L Total Creatine Kinase (30-223) U/L Troponin I High Sens (0-20) pg/ml Total Protein (6.0-8.3) gm/dl Albumin (3.4-5.0) gm/dl Globulin (2.5-4.0) gm/dl Albumin/Globulin Ratio (0.9-2) Lipase (11-82) U/L Procalcitonin (0-0.5) ng/ml Urine Color Urine Appearance (Clear) Urine pH (4.5-7.5) Ur Specific [place] (1.000-1.030) Urine Protein (Negative) Urine Glucose (UA) (Negative) Urine Ketones (Negative) Urine Blood (Negative) Urine Nitrite (Negative) Urine Bilirubin (Negative) Urine Urobilinogen (Negative) Ur Leukocyte Esterase (Negative) Urine Opiates Screen (Neg) Ur Methadone, Qual (Neg) Urine Barbiturates (Neg) Ur Phencyclidine (PCP) (Neg) U Amphetamin/Meth Scrn (Neg) MDMA (Ecstasy) Screen (Neg) U Benzodiazepines Scrn (Neg) Ur Cocaine Metabolite (Neg) U Marijuana (THC) Screen (Neg) Administered Medications Heparin Sodium/Dextrose (Heparin Sodium/Dextrose) 25,000 units in 500 mls @ 24 mls/hr IV .[id number] [facility]; Protocol Stop: 03/01/23 17:29 Last Admin: 01/30/23 19:02 Dose: 1,200 units/hr, 24 mls/hr Documented By: QGV Co-signed By: HAYDER Discontinued Medications Heparin Sodium (Porcine) (Heparin Sod (Porcine) 1000 Unit/Ml) 5,000 units IV NOW ONE Stop: 01/30/23 17:24 Last Admin: 01/30/23 19:01 Dose: 5,000 units Documented By: QGV Co-signed By: HAYDER Heparin Sodium/Dextrose (Heparin Iv Adult Wt-Based Standard With Bolus Protocol) 1 each IV Q15M [facility]; Protocol Stop: 03/01/23 17:14 Last Admin: 01/30/23 19:38 Dose: Not Given Documented By: Admin: 01/30/23 19:38 Dose: Not Given Documented By: Admin: 01/30/23 19:38 Dose: Not Given Documented By: Admin: 01/30/23 19:38 Dose: Not Given Documented By: Admin: 01/30/23 19:38 Dose: Not Given Documented By: Admin: 01/30/23 19:06 Dose: Not Given Documented By: Admin: 01/30/23 19:06 Dose: Not Given Documented By: Admin: 01/30/23 19:06 Dose: Not Given Documented By: Admin: 01/30/23 19:05 Dose: Not Given Documented By: Admin: 01/30/23 19:03 Dose: Not Given Documented By: QGV Sodium Chloride (Nss 1000ml) 1,000 mls @ 999 mls/hr IV .Q1H1M GIRMA Stop: 01/30/23 14:50 Last Infusion: 01/30/23 15:40 Dose: 0 mls/hr Documented By: Admin: 01/30/23 14:26 Dose: 999 mls/hr Documented By: MARITZA Sodium Chloride (Nss 1000ml) 1,000 mls @ 999 mls/hr IV .Q1H1M ONE Stop: 01/30/23 15:59 Last Infusion: 01/30/23 17:34 Dose: 0 mls/hr Documented By: Admin: 01/30/23 15:42 Dose: 999 mls/hr Documented By: HAYDER Ceftriaxone Sodium (Rocephin) 2,000 mg in 70 mls @ 140 mls/hr IV NOW STA Stop: 01/30/23 17:14 Last Admin: 01/30/23 17:01 Dose: Not Given Documented By: HAYDER Piperacillin Sod/Tazobactam Sod (Zosyn) 4.5 gm in 120 mls @ 240 mls/hr IV NOW ONE Stop: 01/30/23 17:17 Last Infusion: 01/30/23 18:29 Dose: 0 mls/hr Documented By: Admin: 01/30/23 17:11 Dose: 240 mls/hr Documented By: HAYDER Ioversol (Ioversol 350 Mg 125ml Prefilled Syringe) 118 ml IV ONCE ONE Stop: 01/30/23 16:23 Last Admin: 01/30/23 16:23 Dose: 118 ml Documented By: SRINIVASA Lorazepam (Lorazepam 2 Mg/1 Ml Vial) 1 mg IV NOW STA Stop: 01/30/23 15:00 Last Admin: 01/30/23 15:40 Dose: 1 mg Documented By: HAYDER Imaging Data Radiologist's Impression: Chest X-Ray 01/30/23 13:48 XR chest 1V portable HISTORY: weakness COMPARISON: Chest 11/12/2022. FINDINGS: The lungs are clear. Cardiac silhouette is normal in size. No pleural effusions. No pneumothorax. IMPRESSION: No acute process. ACT 112: Negative or not required by law. Electronically signed by: Forest Enamorado M.D. 01/30/2023 2:[address] 01/30/23 15:[address] DOSE: HISTORY: Head injury. fall TECHNIQUE: Multiaxial CT images of the head were performed without the use of intravenous contrast. Automated exposure control was utilized for this study. A dose lowering technique was utilized adhering to the principles of ALARA. Comparison: Head CT 11/12/2022. Findings: The paranasal sinuses and mastoid air cells are clear. The calvarium and skull base are intact. The ventricles and sulci are within normal limits. There is no mass, hematoma, midline shift, or acute infarct. Impression: No acute intracranial abnormality. ACT 112: Negative or not required by law. Electronically signed by: Forest Enamorado M.D. 01/30/2023 4:31 PM Chest CTA 01/30/23 15:36 CT ANGIOGRAM OF THE CHEST CLINICAL HISTORY: Fall. Generalized weakness. COMPARISON STUDY: Chest x-ray dated 01/30/2023. TECHNIQUE: Following the IV administration of 118 cc of Optiray 320, CT angiogram of the chest was performed from the upper abdomen to the thoracic inlet utilizing the pulmonary embolus protocol. Images are reviewed in the axial, sagittal, and coronal planes. 3-D MIPS images are created and assessed. IV contrast was administered without complication. A dose lowering technique was utilized adhering to the principles of ALARA. The examination is degraded by motion artifact. There is also streak artifact from the right arm which could not be elevated above the chest. CT DOSE: 1467.94 mGy.cm FINDINGS: Thyroid: Imaged portions of the thyroid gland are normal in size and attenuation. Thoracic aorta: The thoracic aorta is normal in caliber and demonstrates bovine variant arch anatomy. No dissection is seen. Pulmonary vasculature: The pulmonary trunk is normal in caliber. There is subsegmental pulmonary embolus within branches of the left lower lobe pulmonary artery (axial image #136). Trace chronic pulmonary embolus is seen within the right middle lobe pulmonary artery on image #138. No additional pulmonary emboli are clearly identified. Evaluation of the peripheral branches is degraded by motion artifact. Heart: The heart is normal in size and without pericardial effusion. There are scattered coronary artery calcifications. Lungs and pleural spaces: Evaluation of the lung parenchyma is moderately degraded by motion artifact. There is no airspace consolidation, pleural effusion, or pneumothorax. The trachea and central airways are clear. A 3 mm right lower lobe nodule is seen image #122. Mediastinum: There is no mediastinal lymphadenopathy. Rosalba: Clear. Axillae: There is no axillary lymphadenopathy. Upper abdomen: The gallbladder appears normally distended and appears thick- walled. Question pericholecystic infiltration. There is a [id number] hiatal hernia. Skeletal structures: The bony thorax appears intact. No lytic or blastic bony lesions are seen. Arthritic change is seen in the shoulders, right greater than left. IMPRESSION: 1. Streak and motion compromised examination. 2. There is segmental pulmonary embolus within branches of the left lower lobe pulmonary artery. 3. Trace chronic thrombus is noted in the right middle lobe pulmonary artery. 4. There is no airspace consolidation or pleural effusion. 5. The gallbladder appears distended and mildly thick wall. Question pericholecystic infiltration. This is suboptimally assessed due to motion artifact. Correlate with clinical and laboratory findings there if there is clinical concern for acute cholecystitis right upper quadrant ultrasound should be obtained. 6. A 3 mm right lower lobe pulmonary nodules pathologically determined. If warranted this can be followed as per the Fleischner criteria below. 7. Additional findings as above. Please refer to below summary of Fleischner criteria recommendations for follow- up of incidental CT nodules (Sharmila Mondragon, Guidelines for management of small pulmonary nodules detected on CT scans: A statement from the Fleischner Society, Radiology 237: [id number].) SOLID NODULES Solitary nodule size: <6 mm * low risk patients: no follow-up needed * high risk patients: optional CT at 12 months Solitary nodule size: 6-8 mm * low risk patients: follow-up at 6-12 months, then consider further follow-up at 18-24 months * high risk patients: initial follow-up CT at 6-12 months and then at 18-24 months if no change Solitary nodule size: >8 mm * either low or high risk patients - consider follow-up CT at 3 months, and/or CT-PET, and/or biopsy Multiple nodules size: <6 mm * low risk patients: no routine follow-up * high risk patients: optional CT at 12 months Multiple nodules size: 6-8 mm * low risk patients: follow-up at 3-6 months, then consider further follow-up at 18-24 months * high risk patients: follow-up at 3-6 months, then at 18-24 months if no change Multiple nodules size: >8 mm * low risk patients: follow-up at 3-6 months, then consider further follow-up at 18-24 months * high risk patients: follow-up at 3-6 months, then at 18-24 months if no change Note: newly detected indeterminate nodule in persons 35 years of age or older. * low risk patients: minimal or absent history of smoking and/or other known risk factors * high risk patients: history of smoking or of other known risk factors (e.g. first degree relative with lung cancer, or exposure to asbestos, radon, uranium) * if a nodule up to 8 mm is partly solid or is ground glass further follow-up is required after 24 months to exclude possible slow growing adenocarcinoma ([facility]) SUBSOLID NODULES Solitary pure ground-glass nodule * nodule size <6 mm - no CT follow-up required * nodule size >=6 mm - follow-up CT at 6-12 months, then every 2 years until 5 years Solitary part-solid nodule * nodule size <6 mm - no CT follow-up required * nodule size >=6 mm - follow-up CT at 3-6 months. If unchanged, and solid component remains <6 mm, then annual follow-up for 5 years Multiple subsolid nodules * nodule size <6 mm - follow-up CT at 3-6 months, consider further follow-up at 2 and 4 years if stable * nodule size >=6 mm - follow-up CT at 3-6 months, subsequent management based on the most suspicious nodule(s) ACT 112: Negative or not required by law. Electronically signed by: Anton Hoang M.D. 01/30/2023 4:36 PM Gallbladder Ultrasound 01/30/23 16:48 ABDOMINAL ULTRASOUND, RIGHT UPPER QUADRANT HISTORY: Generalized abdominal pain.. COMPARISON: None. FINDINGS: Pancreas: Obscured by overlying bowel gas. Liver: The liver is echogenic consistent with fatty change. 15 cm in length. No hepatic masses. Gallbladder: No gallstones identified. Mild diffuse gallbladder wall thickening measuring up to 6 mm. Punctate echogenic foci with ringdown artifact at the gallbladder fundus. This is consistent with adenomyomatosis. CBD: Borderline dilated measuring up to 6.6 mm. Right kidney: No hydronephrosis. IMPRESSION: 1. Mild diffuse gallbladder wall thickening. This is nonspecific and could be due to a diffuse edematous state, underlying hepatic pathology, or possibly a developing acute cholecystitis. However, there are no gallstones identified. Clinical correlation recommended. 2. Borderline dilated common bile measuring 6.6 mm. 3. Hepatic steatosis. ACT 112: Negative or not required by law. Electronically signed by: Forest Enamorado M.D. 01/30/2023 6:55 PM Discharge Plan Visit Data Chief Complaint: Illness Stated Complaint: Weakness, medication change ED Provider: Tobin Toussaint Discharge Problem: Pulmonary embolism, Elevated troponin, Abnormal ECG, Leukocytosis, Elevated lactic acid level Forms Stand Alone Forms: My [facility] [place] [employer] Prescriptions Prescriptions: No Action amlodipine 5 mg tablet 5 mg PO DAILY montelukast 10 mg tablet 10 mg PO DAILY folic acid 1 mg tablet 1 mg PO DAILY tamsulosin 0.4 mg capsule 0.8 mg PO DAILY Qty: 180 3RF quetiapine 50 mg tablet 50 mg PO HS finasteride [Proscar] 5 mg Tablet 5 mg PO QAM Qty: 30 2RF tramadol 50 mg tablet 50 mg PO Q6H PRN (Reason: pain) Qty: 1 0RF Rx Instructions: please use sparingly if possible lorazepam 1 mg tablet 1 mg PO TID PRN (Reason: Unknown) Qty: 1 0RF Rx Instructions: please limit lorazepam to 3 times a day maximum. thiamine HCl (vitamin B1) [Vitamin B-1] 100 mg tablet 200 mg PO BID Men's Daily Gummies 200 mcg Tablet,Chewable 1 tab PO DAILY Referrals Referrals: Lara Rosas [Primary Care Provider] -
[2023-01-30 15:40] LABS: D Dimer 650 ug/L FEU (0-500)
[2023-01-30 16:01] LABS: Appearance Urine Clear (Clear); Bilirubin Urine Negative (Negative); Blood Urine Negative (Negative); Color Urine Yellow; Glucose Urine UA Negative (Negative); Ketones Urine 1+ (Negative); Leukocyte Esterase Urine Negative (Negative); Nitrite Urine Negative (Negative); Protein Urine Negative (Negative); Specific Gravity Urine 1.023 (1.000-1.030); Urobilinogen Urine Negative (Negative); pH Urine 5.5 (4.5-7.5)
[2023-01-30] MEDS ORDERED: IOVERSOL 350 MG 125mL Prefilled Syringe IV ONE (16:22)
[2023-01-30 16:31] LABS: Amphetamines+Metham, Urine Neg (Neg); Barbiturates, Urine Neg (Neg); Benzodiazepine, Urine Neg (Neg); Cocaine, Urine Neg (Neg); MDMA (Ecstacy), Urine Neg (Neg); Methadone, Urine Neg (Neg); Opiate, Urine Neg (Neg); Phencyclidine, Urine Neg (Neg)
--- NOTE | 2023-01-30 16:32 | CT Scan Report ---
HEAD CT NONCONTRAST CT DOSE: HISTORY: Head injury. fall TECHNIQUE: Multiaxial CT images of the head were performed without the use of intravenous contrast. A utomated exposure control was utilized for this study. A dose lowering technique was utilized adheri ng to the principles of ALARA. Comparison: Head CT 11/12/2022. Findings: The paranasal sinuses and mastoid air cells are clear. The calvarium and skull base are int act. The ventricles and sulci are within normal limits. There is no mass, hematoma, midline shift, or acute infarct. Impression: No acute intracranial abnormality. ACT 112: Negative or not required by law. Electronically signed by: Forest Enamorado M.D. 01/30/2023 4:31 PM
--- NOTE | 2023-01-30 16:38 | CT Scan Report ---
CT ANGIOGRAM OF THE CHEST CLINICAL HISTORY: Fall. Generalized weakness. COMPARISON STUDY: Chest x-ray dated 01/30/2023. TECHNIQUE: Following the IV administration of 118 cc of Optiray 320, CT angiogram of the chest was pe rformed from the upper abdomen to the thoracic inlet utilizing the pulmonary embolus protocol. Images are reviewed in the axial, sagittal, and coronal planes. 3-D MIPS images are created and assessed. I V contrast was administered without complication. A dose lowering technique was utilized adhering to the principles of ALARA. The examination is degraded by motion artifact. There is also streak artifa ct from the right arm which could not be elevated above the chest. CT DOSE: 1467.94 mGy.cm FINDINGS: Thyroid: Imaged portions of the thyroid gland are normal in size and attenuation. Thoracic aorta: The thoracic aorta is normal in caliber and demonstrates bovine variant arch anatomy. No dissection is seen. Pulmonary vasculature: The pulmonary trunk is normal in caliber. There is subsegmental pulmonary embo ezekiel within branches of the left lower lobe pulmonary artery (axial image #136). Trace chronic pulmona ry embolus is seen within the right middle lobe pulmonary artery on image #138. No additional pulmona ry emboli are clearly identified. Evaluation of the peripheral branches is degraded by motion artifact. Heart: The heart is normal in size and without pericardial effusion. There are scattered coronary art bob calcifications. Lungs and pleural spaces: Evaluation of the lung parenchyma is moderately degraded by motion artifact . There is no airspace consolidation, pleural effusion, or pneumothorax. The trachea and central airw ays are clear. A 3 mm right lower lobe nodule is seen image #122. Mediastinum: There is no mediastinal lymphadenopathy. Rosalba: Clear. Axillae: There is no axillary lymphadenopathy. Upper abdomen: The gallbladder appears normally distended and appears thick-walled. Question perichol ecystic infiltration. There is a eyrxm-mu-sdugplwq hiatal hernia. Skeletal structures: The bony thorax appears intact. No lytic or blastic bony lesions are seen. Arthr itic change is seen in the shoulders, right greater than left. IMPRESSION: 1. Streak and motion compromised examination. 2. There is segmental pulmonary embolus within branches of the left lower lobe pulmonary artery. 3. Trace chronic thrombus is noted in the right middle lobe pulmonary artery. 4. There is no airspace consolidation or pleural effusion. 5. The gallbladder appears distended and mildly thick wall. Question pericholecystic infiltration. Th is is suboptimally assessed due to motion artifact. Correlate with clinical and laboratory findings t here if there is clinical concern for acute cholecystitis right upper quadrant ultrasound should be o btained. 6. A 3 mm right lower lobe pulmonary nodules pathologically determined. If warranted this can be foll owed as per the Fleischner criteria below. 7. Additional findings as above. Please refer to below summary of Fleischner criteria recommendations for follow-up of incidental CT n odules (Sharmila Mondragon, Guidelines for management of small pulmonary nodules detected on CT scans: A sta tement from the Fleischner Society, Radiology 237: [phone].) SOLID NODULES Solitary nodule size: <6 mm * low risk patients: no follow-up needed * high risk patients: optional CT at 12 months Solitary nodule size: 6-8 mm * low risk patients: follow-up at 6-12 months, then consider further follow-up at 18-24 months * high risk patients: initial follow-up CT at 6-12 months and then at 18-24 months if no change Solitary nodule size: >8 mm * either low or high risk patients - consider follow-up CT at 3 months, and/or CT-PET, and/or biopsy Multiple nodules size: <6 mm * low risk patients: no routine follow-up * high risk patients: optional CT at 12 months Multiple nodules size: 6-8 mm * low risk patients: follow-up at 3-6 months, then consider further follow-up at 18-24 months * high risk patients: follow-up at 3-6 months, then at 18-24 months if no change Multiple nodules size: >8 mm * low risk patients: follow-up at 3-6 months, then consider further follow-up at 18-24 months * high risk patients: follow-up at 3-6 months, then at 18-24 months if no change Note: newly detected indeterminate nodule in persons 35 years of age or older. * low risk patients: minimal or absent history of smoking and/or other known risk factors * high risk patients: history of smoking or of other known risk factors (e.g. first degree relative with lung cancer, or exposure to asbestos, radon, uranium) * if a nodule up to 8 mm is partly solid or is ground glass further follow-up is required after 24 m onths to exclude possible slow growing adenocarcinoma ([facility]) SUBSOLID NODULES Solitary pure ground-glass nodule * nodule size <6 mm - no CT follow-up required * nodule size >=6 mm - follow-up CT at 6-12 months, then every 2 years until 5 years Solitary part-solid nodule * nodule size <6 mm - no CT follow-up required * nodule size >=6 mm - follow-up CT at 3-6 months. If unchanged, and solid component remains <6 mm, then annual follow-up for 5 years Multiple subsolid nodules * nodule size <6 mm - follow-up CT at 3-6 months, consider further follow-up at 2 and 4 years if sta ble * nodule size >=6 mm - follow-up CT at 3-6 months, subsequent management based on the most suspiciou s nodule(s) ACT 112: Negative or not required by law. Electronically signed by: Anton Hoang M.D. 01/30/2023 4:36 PM
[2023-01-30] MEDS ORDERED: cefTRIAXone SODIUM 2,000 MG/70 ML BAG IV STA (16:45)
[2023-01-30] MEDS ORDERED: PIPERACILLIN/TAZOBACTAM 4.5 GM/120 ML BAG IV ONE (16:48)
[2023-01-30] MEDS ORDERED: Heparin IV Adult Wt-Based Standard WITH Bolus Protocol IV STA (17:08)
[2023-01-30] MEDS ORDERED: HEPARIN SOD (PORCINE) 1000 UNIT/ML IV ONE ×2 (17:23)
--- NOTE | 2023-01-30 18:01 | History & Physical Report ---
Date of Service January 30, 2023 Assessment & Plan (1) Ambulatory dysfunction: Plan: Suspect combination of lorazepam and tramadol. Despite discussions trying to limit tramadol after last admission he is picking this up regularly with his lorazepam. Possible benzodiazepine withdrawal, patient was seen after lorazepam 1mg IV given in the ER and no longer appears to be actively withdrawing. AWSS with lorazepam PRN. Thiamine 200mg IV TID for possible Wernicke's (noted Korsakoffs suspected during admission in October). Avoid tramadol - patient unclear why he takes this PT/OT evals (2) Pulmonary embolism: Plan: Unclear how much this is contributing towards his presentation given unclear HPI Start IV heparin - consider three months of treatment as patient considerable falls risk (3) Elevated troponin: Plan: Very mildly elevated. Will continue to trend given unclear history but low suspicion of ACS. (4) Leukocytosis: Plan: No clear infection on exam. Diffuse gallbladder wall thickening on US and findings on CT do not correlate clinically with exam. Procalcitonin negative. Blood cultures taken but will defer ongoing antibiotics without a source. (5) BPH (benign prostatic hyperplasia): Plan: Continue tamsulosin and finasteride Plan VTE Prophylaxis - heparin IV drip Diet - regular Disposition - admit to med/tele Admission and Anticipated Discharge Date Admission Date: January 30, 2023 History of Present Illness Chief Complaint: Fall, ambulatory dysfunction Primary Care Provider: Lara Rosas Alejandro Verdugo is a 62 year old male who presents to the ER via EMS due to a fall this morning and unable to get up. History taking from patient very difficult due to tangential speech also noted during his admission for altered mental status in October. At that time he was diagnosed with marijuana, benzodiazepine and opiate use vs benzodiazepine withdrawal vs. Wernicke's encephalopathy causing his presentation. 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 He denies marijuana use despite his urine drug screen positive last admission and now. He reports difficulty ambulating at home. No chest pain or dizziness. He fell last night and thinks he hit his head and thinks he called EMS. He notes palpitations, shortness of breath, sweats, chills and headache although unable to tell me how long these symptoms have been going on as he reports both feeling ok and doing well yesterday but also having problems progressively getting worse for the last week. He reports not taking Ativan for the last 3 days as he has been unable to find any and reports his PCP has been trying to wean him off despite his prescriptions being filled at the same amount regularly. Regarding his shortness of breath he reports only being able to walk 20-30 feet prior to feeling very short of breath but none at rest. He is unsure why he takes tramadol. Previous noted reports cervical spine radiculopathy. He reports quitting alcohol 3 years ago with no recent consumption. Poor appetite but no nausea, vomiting or abdominal pain. Notes loose stool this morning after eating something yesterday. No taste since the start of the year. He denies smoking or marijuana use. He does note occasional hallucinations but nothing like what he was having in October. Allergies Allergy/AdvReac Type Severity Reaction Status Date / Time No Known Allergies Allergy Verified 01/30/23 16:15 Home Medications Medication Instructions Recorded Confirmed Type amlodipine 5 mg tablet 5 mg PO DAILY 05/06/21 01/30/23 History quetiapine 50 mg tablet 50 mg PO HS 11/13/22 01/30/23 History finasteride 5 mg tablet (Proscar) 5 mg PO QAM #30 tabs 11/16/22 01/30/23 Rx lorazepam 1 mg tablet 1 mg PO TID PRN Unknown #1 tab 11/16/22 01/30/23 Rx tramadol 50 mg tablet 50 mg PO Q6H PRN pain #1 tab 11/16/22 01/30/23 Rx folic acid 1 mg tablet 1 mg PO DAILY 12/29/22 01/30/23 History montelukast 10 mg tablet 10 mg PO DAILY 12/29/22 01/30/23 History tamsulosin 0.4 mg capsule 0.8 mg PO DAILY #180 caps 12/29/22 01/30/23 Rx multivitamin with minerals-folic 1 tab PO DAILY 01/30/23 01/30/23 History acid 200 mcg chewable tablet (Men's Daily Gummies) thiamine HCl (vitamin B1) 100 mg 200 mg PO BID 01/30/23 01/30/23 History tablet (Vitamin B-1) Past Med/Surg History Medical History (Updated 01/30/23 @ 20:46 by Tulio Baltazar MD) Acute encephalopathy Anxiety Bipolar disorder with depression BPH (benign prostatic hyperplasia) Cervical radiculopathy Cervical spondylosis History of substance abuse Hypertension Left arm pain Neural foraminal stenosis of cervical spine Strain of neck muscle Vitamin D deficiency Surgical History S/P excision of lipoma (05/24/21) Dr. Craig excision of lipoma LLQ abdomen: 05-24-2021 S/P hernia repair 03-26-2012 Family History Mother Cancer Breast cancer Thyroid disease Father Cancer Heart disease Hypertension Sister Kidney stones Social History Smoking Status: Never smoker Hx Alcohol Use: No Hx Substance Use: Yes Last Used Substance: Days (ago) Last Used Substance Other:: Initially denied use, then reported taking gummies last weekend Preferred Language: Bermudian Communication Ability: Effective Visual Impairment: No Limitations Hearing Ability: Normal Putaway Driver Required: No Beliefs That Will Affect Care: None marital status: Single Current Living Situation: Alone Current Living Situation Comment: Lives at home with dog current occupational status: employed 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 Feels Safe at Home: Yes Safety Concerns: Feels Safe At This Time during the past year weight has: decreased > 10 lbs Assistive Devices: Glasses Review of Systems Review of Systems: All systems reviewed & are unremarkable except as noted in HPI & below Physical Exam Constitutional: well developed; + not well nourished and no acute distress Respiratory: normal respiratory effort, lungs clear to auscultation Cardiovascular: Rate/Rhythm: regular rhythm and + tachycardic Heart Sounds: no murmur Extremities: normal capillary refill; no calf tenderness and no pedal edema Gastrointestinal (Abdomen): normal bowel sounds, soft, nontender, no hepatosplenomegaly Skin: no rashes, warm and dry Neurologic: moves all extremities and awake; no focal motor deficits and not confused Speech / Cognition: normal speech Motor/Sensory: no tremor and no pronator drift Cranial Nerves: sense of smell intact, PERRL, EOM intact bilaterally, normal facial strength, tongue midline, able to rotate head bilaterally, able to elevate shoulders bilaterally, no nystagmus and symmetric palate elevation Coordination: normal [id number] test Psychiatric: Orientation: alert, oriented to person and oriented to place; + not oriented to time Thought Process: + tangential thought process Results & Data Results & Data Vital Signs (Past 12 Hours) Vital Signs Temp Pulse Pulse Resp BP BP Pulse Ox 01/30/23 14:16 120 H 01/30/23 14:05 106 H 18 143/101 H 95 01/30/23 13:43 36.4 C L 140 H 18 118/86 100 O2 Del Method 01/30/23 14:16 01/30/23 14:05 Room Air 01/30/23 13:43 Room Air Laboratory Results Abnormal lab results 01/30/23 01/30/23 01/30/23 Range/Units 14:02 14:02 14:02 WBC 19.47 H (4.8-10.8) K/ul RBC 4.41 L (4.70-6.10) M/uL Hgb 12.8 L (14.0-18.0) g/dl Hct 36.0 L (42.0-52.0) % Plt Count 405 H (130-400) K/uL Neut # (Auto) 15.69 H (1.40-6.50) K/uL Sequoyah # (Auto) 1.42 H (0.11-0.59) K/uL D-Dimer 650 H* (0-500) ug/L FEU Sodium 135 L (136-145) mmol/L Potassium 3.2 L (3.5-5.1) mmol/L BUN 34 H (6-23) mg/dl BUN/Creatinine Ratio 40.5 H (10-20) Glucose 132 H (70-99(Fasting)) mg/dl Lactate (0.4-2.0) mmol/L Calcium 10.6 H (8.6-10.3) mg/dl AST 10 L (13-39) U/L Total Creatine Kinase (30-223) U/L Troponin I High Sens 24.2 H (0-20) pg/ml Urine Ketones (Negative) U Marijuana (THC) Screen (Neg) 01/30/23 01/30/23 01/30/23 Range/Units 15:31 15:31 15:44 WBC (4.8-10.8) K/ul RBC (4.70-6.10) M/uL Hgb (14.0-18.0) g/dl Hct (42.0-52.0) % Plt Count (130-400) K/uL Neut # (Auto) (1.40-6.50) K/uL Sequoyah # (Auto) (0.11-0.59) K/uL D-Dimer (0-500) ug/L FEU Sodium (136-145) mmol/L Potassium (3.5-5.1) mmol/L BUN (6-23) mg/dl BUN/Creatinine Ratio (10-20) Glucose (70-99(Fasting)) mg/dl Lactate 2.3 H* (0.4-2.0) mmol/L Calcium (8.6-10.3) mg/dl AST (13-39) U/L Total Creatine Kinase 20 L (30-223) U/L Troponin I High Sens (0-20) pg/ml Urine Ketones 1+ H (Negative) U Marijuana (THC) Screen (Neg) 01/30/23 Range/Units 15:44 WBC (4.8-10.8) K/ul RBC (4.70-6.10) M/uL Hgb (14.0-18.0) g/dl Hct (42.0-52.0) % Plt Count (130-400) K/uL Neut # (Auto) (1.40-6.50) K/uL Sequoyah # (Auto) (0.11-0.59) K/uL D-Dimer (0-500) ug/L FEU Sodium (136-145) mmol/L Potassium (3.5-5.1) mmol/L BUN (6-23) mg/dl BUN/Creatinine Ratio (10-20) Glucose (70-99(Fasting)) mg/dl Lactate (0.4-2.0) mmol/L Calcium (8.6-10.3) mg/dl AST (13-39) U/L Total Creatine Kinase (30-223) U/L Troponin I High Sens (0-20) pg/ml Urine Ketones (Negative) U Marijuana (THC) Screen Pos H (Neg) Diagnostic Findings XR chest 1V portable HISTORY: weakness COMPARISON: Chest 11/12/2022. FINDINGS: The lungs are clear. Cardiac silhouette is normal in size. No pleural effusions. No pneumothorax. IMPRESSION: No acute process. HEAD CT NONCONTRAST CT DOSE: HISTORY: Head injury. fall TECHNIQUE: Multiaxial CT images of the head were performed without the use of intravenous contrast. Automated exposure control was utilized for this study. A dose lowering technique was utilized adhering to the principles of ALARA. Comparison: Head CT 11/12/2022. Findings: The paranasal sinuses and mastoid air cells are clear. The calvarium and skull base are intact. The ventricles and sulci are within normal limits. There is no mass, hematoma, midline shift, or acute infarct. Impression: No acute intracranial abnormality. CT ANGIOGRAM OF THE CHEST CLINICAL HISTORY: Fall. Generalized weakness. COMPARISON STUDY: Chest x-ray dated 01/30/2023. TECHNIQUE: Following the IV administration of 118 cc of Optiray 320, CT angiogram of the chest was performed from the upper abdomen to the thoracic inlet utilizing the pulmonary embolus protocol. Images are reviewed in the axial, sagittal, and coronal planes. 3-D MIPS images are created and assessed. IV contrast was administered without complication. A dose lowering technique was utilized adhering to the principles of ALARA. The examination is degraded by motion artifact. There is also streak artifact from the right arm which could not be elevated above the chest. CT DOSE: 1467.94 mGy.cm FINDINGS: Thyroid: Imaged portions of the thyroid gland are normal in size and attenuation. Thoracic aorta: The thoracic aorta is normal in caliber and demonstrates bovine variant arch anatomy. No dissection is seen. Pulmonary vasculature: The pulmonary trunk is normal in caliber. There is subsegmental pulmonary embolus within branches of the left lower lobe pulmonary artery (axial image #136). Trace chronic pulmonary embolus is seen within the right middle lobe pulmonary artery on image #138. No additional pulmonary emboli are clearly identified. Evaluation of the peripheral branches is degraded by motion artifact. Heart: The heart is normal in size and without pericardial effusion. There are scattered coronary artery calcifications. Lungs and pleural spaces: Evaluation of the lung parenchyma is moderately degraded by motion artifact. There is no airspace consolidation, pleural effusion, or pneumothorax. The trachea and central airways are clear. A 3 mm right lower lobe nodule is seen image #122. Mediastinum: There is no mediastinal lymphadenopathy. Rosalba: Clear. Axillae: There is no axillary lymphadenopathy. Upper abdomen: The gallbladder appears normally distended and appears thick- walled. Question pericholecystic infiltration. There is a [id number] hiatal hernia. Skeletal structures: The bony thorax appears intact. No lytic or blastic bony lesions are seen. Arthritic change is seen in the shoulders, right greater than left. IMPRESSION: 1. Streak and motion compromised examination. 2. There is segmental pulmonary embolus within branches of the left lower lobe pulmonary artery. 3. Trace chronic thrombus is noted in the right middle lobe pulmonary artery. 4. There is no airspace consolidation or pleural effusion. 5. The gallbladder appears distended and mildly thick wall. Question pericholecystic infiltration. This is suboptimally assessed due to motion artifact. Correlate with clinical and laboratory findings there if there is clinical concern for acute cholecystitis right upper quadrant ultrasound should be obtained. 6. A 3 mm right lower lobe pulmonary nodules pathologically determined. If warranted this can be followed as per the Fleischner criteria below. 7. Additional findings as above. ABDOMINAL ULTRASOUND, RIGHT UPPER QUADRANT HISTORY: Generalized abdominal pain.. COMPARISON: None. FINDINGS: Pancreas: Obscured by overlying bowel gas. Liver: The liver is echogenic consistent with fatty change. 15 cm in length. No hepatic masses. Gallbladder: No gallstones identified. Mild diffuse gallbladder wall thickening measuring up to 6 mm. Punctate echogenic foci with ringdown artifact at the gallbladder fundus. This is consistent with adenomyomatosis. CBD: Borderline dilated measuring up to 6.6 mm. Right kidney: No hydronephrosis. IMPRESSION: 1. Mild diffuse gallbladder wall thickening. This is nonspecific and could be due to a diffuse edematous state, underlying hepatic pathology, or possibly a developing acute cholecystitis. However, there are no gallstones identified. Clinical correlation recommended. 2. Borderline dilated common bile measuring 6.6 mm. 3. Hepatic steatosis. Medications Administered ER Medications Given: Normal saline 1L bolus x2 Lorazepam 1mg IV Zosyn 4.5g IV Heparin standard dose with bolus ECG Rate (beats per minute): 123 Rhythm: sinus tachycardia Findings: + T-wave inversion (Inferior/Lateral) Comparison ECG Date: from (November 13, 2022) Change: the following changes noted (Inverted T waves in inferolateral leads) Code Status & VTE Plan Code Status Full VTE Prophylaxis Plan VTE Prophylaxis will be ordered: Yes PG Care Time/CCT Total # of Minutes Spent Total Time Spent with Patient: Total time spent is greater than 50% in coordination of care (as documented) at patient's floor/unit and/or counseling patient: Coding Level of Care Code 63658 INT INP/OBS CARE 3/75MIN Diagnoses Ambulatory dysfunction R26.2 Pulmonary embolism I26.99 Elevated troponin R77.8 Leukocytosis D72.829 BPH (benign prostatic hyperplasia) N40.0
[2023-01-30 18:02] LABS: Phosphorus 3.3 mg/dl (2.5-4.9)
--- NOTE | 2023-01-30 18:57 | Ultrasound Report ---
ABDOMINAL ULTRASOUND, RIGHT UPPER QUADRANT HISTORY: Generalized abdominal pain.. COMPARISON: None. FINDINGS: Pancreas: Obscured by overlying bowel gas. Liver: The liver is echogenic consistent with fatty change. 15 cm in length. No hepatic masses. Gallbladder: No gallstones identified. Mild diffuse gallbladder wall thickening measuring up to 6 mm. Punctate echogenic foci with ringdown artifact at the gallbladder fundus. This is consistent with ad enomyomatosis. CBD: Borderline dilated measuring up to 6.6 mm. Right kidney: No hydronephrosis. IMPRESSION: 1. Mild diffuse gallbladder wall thickening. This is nonspecific and could be due to a diffuse edemat ous state, underlying hepatic pathology, or possibly a developing acute cholecystitis. However, there are no gallstones identified. Clinical correlation recommended. 2. Borderline dilated common bile measuring 6.6 mm. 3. Hepatic steatosis. ACT 112: Negative or not required by law. Electronically signed by: Forest Enamorado M.D. 01/30/2023 6:55 PM
[2023-01-30 18:58] LABS: INR 1.1 (0.9-1.1); Partial Thromboplastin Ratio 0.9; Partial Thromboplastin Time 25.2 Seconds (21.0-31.0); Prothrombin Time 11.9 Seconds (9.0-12.0)
[2023-01-30] MEDS: HEPARIN SODIUM/DEXTROSE 25,000 UNITS/500 ML BAG IV SCH (19:02)
[2023-01-30] MEDS: Heparin IV Adult Wt-Based Standard WITH Bolus Protocol IV SCH ×4 (19:03→19:38)
--- NOTE | 2023-01-30 19:40 | Electrocardiogram Report ---
Test Reason : Blood Pressure : / mmHG Vent. Rate : 123 BPM Atrial Rate : 123 BPM P-R Int : 134 ms QRS Dur : 078 ms QT Int : 296 ms P-R-T Axes : 077 053 234 degrees QTc Int : 423 ms Sinus tachycardia Possible Left atrial enlargement Abnormal ECG When compared with ECG of 13-NOV-2022 10:22, Inverted T waves have replaced nonspecific T wave abnormality in Inferior leads Inverted T waves have replaced nonspecific T wave abnormality in Lateral leads Confirmed by Robert Evans ([id number]) on 01/30/2023 7:40:16 PM Referred By: REFERRED SELF Confirmed By:Gilbert Evans
[2023-01-30] MEDS: POTASSIUM CHLORIDE / WTR 10 MEQ/100 ML PLCT IV SCH ×2 (20:20→21:24)
[2023-01-30] MEDS ORDERED: traMADol HCL 50 MG TABLET PO PRN (22:03)
[2023-01-30] MEDS ORDERED: LORazepam 1 MG TAB PO PRN (22:03)
[2023-01-30] MEDS: QUEtiapine FUMARATE 25 MG TABLET PO SCH (22:45)
[2023-01-30] MEDS: MONTELUKAST SODIUM 10 MG TABLET PO SCH (22:45)
[2023-01-30] MEDS: THIAMINE HCL 200 MG in SODIUM CHLORIDE 0.9% 50 ML IV SCH (22:45)
[2023-01-31 01:23] LABS: Appearance Urine Clear (Clear); Bilirubin Urine Negative (Negative); Blood Urine Negative (Negative); Color Urine Yellow; Glucose Urine UA Negative (Negative); Ketones Urine Trace (Negative); Leukocyte Esterase Urine Negative (Negative); Nitrite Urine Negative (Negative); Protein Urine Negative (Negative); Specific Gravity Urine 1.039 (1.000-1.030); Urobilinogen Urine Negative (Negative)
[2023-01-31 02:13] LABS: Partial Thromboplastin Ratio 2.8
--- NOTE | 2023-01-31 07:57 | Hospitalist Progress Note ---
Date of Service January 31, 2023 Assessment & Plan (1) Ambulatory dysfunction: (2) Pulmonary embolism: (3) Leukocytosis: (4) Folate deficiency: Plan Ambulatory dysfunction -Suspect combination of lorazepam and tramadol as driving factor for ambulatory dysfunction. Ativan prescribed for over 20 years, PCP has been working on taper for several month. -Possible benzodiazepine withdrawal, AWSS with lorazepam PRN. Had not received lorazepam since the ED. -Thiamine 200mg IV TID for possible Wernicke's (noted Korsakoffs suspected during admission in October). -Tramadol stopped, advised against any further outpatient benzo prescriptions -PT/OT evaluations Pulmonary embolism -Continue IV heparin -Decreased ambulation secondary to weakness for several weeks along with shortness of breath -Could consider immobilization as provocation for PE to guide length of period to anticoagulate -Subjective shortness of breath, respiratory status stable on room air Normocytic Anemia -Hgb dropped from 12.8 on arrival to 8.6 this a.m. -Repeat Hgb this afternoon at 8.9 -Received >2L IV fluids since arrival, could consider hemodilution as factor -Trend CBC, consider FOBT Elevated troponin Very mildly elevated, downtrended. Hypokalemia -Potassium of 3.3 this morning, repleted -Repeat BMP in a.m. Leukocytosis No clear infection on exam. Diffuse gallbladder wall thickening on US and findings on CT do not correlate clinically with exam. Procalcitonin negative. Blood cultures taken but will defer ongoing antibiotics without a source. BPH (benign prostatic hyperplasia) -Continue tamsulosin and finasteride Admission and Anticipated Discharge Date Admission Date: January 30, 2023 Supervising Physician Co-Signing Physician Notes Attending attestation Pt seen and examined in concert with Dr. Mauricio. In agreement with the documented findings as noted in the resident documentation with any exceptions or additions as noted here. Resting in bed. On further review symptoms of progressive weakness have been reported for up to a month culminating in significant course of 5-10 days prior to admission that were spent predominantly in bed or on the couch with difficulty in POI. Pt reports last lorazepam intake 3+ days ago. On examination, S1/S2 nl RRR no MCG. CTAB. Abd NT/ND BS+ve. CNII-XII grossly intact. Pulmonary embolism - continue heparin drip and transition to PO apixaban when hgb stable Anemia, normocytic - uncertain etiology at present. check FOBT on next BM and monitor. Repeat CBC this afternoon to ensure stability then trend AM Ambulatory dysfunction and weakness - PT/OT consult Elevated troponin with concern for demand ischemia - improved on repeat study, consider further evaluation with management of underlying disease Concern for benzodiazepine overuse - monitor for withdrawal symptoms Else see resident documentation as noted. Subjective Patient seen and examined at bedside. He states he is still feeling very tired and short of breath- the shortness of breath had been ongoing for several weeks. He notes that for the past few weeks he only would move from the couch to the bathroom and would need to sit down between those distances. Notes difficult year with loss of his fiance due to suicide and has been trying to wean off of his chronic benzos (on ativan for 20+ years), notes that he hadnt had any ativan for several days prior to presentation. Notes that he has gaps in his memory since trying to change his ativan dose. States he thinks he fell at hit his head prior to arrival. Notes some shortness of breath at rest, no family or personal history of blood clots. Denies IV or rec drug use. Review of Systems Review of Systems: As per above Physical Exam Constitutional: + thin Eyes: + anicteric sclerae ENMT: External ears and nose normal, moist mucous membranes Respiratory: Increased respiratory efforts, lungs clear to auscultation Cardiovascular: regular rate and rhythm, limbs well perfused Gastrointestinal (Abdomen): Abdomen soft, nondistended Skin: Pallor. No rashes, warm and dry. Psychiatric: Some confusion, oriented to self, place, time. Results & Data Results & Data Vital Signs (Past 12 Hours) Vital Signs Temp Pulse Pulse Resp BP BP Pulse Ox 01/31/23 07:39 86 01/31/23 04:08 36.9 C 106 H 20 109/75 99 01/30/23 22:16 68 01/30/23 22:03 37.4 C 70 20 145/81 H 100 01/30/23 21:00 100 H 11 L 99 01/30/23 21:00 136/83 01/30/23 20:45 12 01/30/23 20:30 69 9 L 100 01/30/23 20:30 129/74 01/30/23 20:00 68 10 L 01/30/23 20:00 131/73 O2 Del Method 01/31/23 07:39 01/31/23 04:08 Room Air 01/30/23 22:16 01/30/23 22:03 Room Air 01/30/23 21:00 Room Air 01/30/23 21:00 01/30/23 20:45 01/30/23 20:30 Room Air 01/30/23 20:30 01/30/23 20:00 01/30/23 20:00 Resident Activity Tracking Resident Involvement: Resident Care Provided Care Provided: Adult Hospital Medicine
[2023-01-31] MEDS: TAMSULOSIN HCL 0.4 MG CAP PO SCH (08:01)
[2023-01-31] MEDS: FINASTERIDE 5 MG TAB PO SCH (08:01)
[2023-01-31] MEDS: amLODIPine BESYLATE 5 MG TAB PO SCH (08:01)
[2023-01-31] MEDS: THIAMINE HCL 200 MG in SODIUM CHLORIDE 0.9% 50 ML IV SCH ×3 (08:05→21:14)
[2023-01-31 08:58] LABS: Albumin Globulin Ratio 1.7 (0.9-2); Albumin Level 3.3 gm/dl (3.4-5.0); BUN Creatinine Ratio 28.4 (10-20); Bilirubin,Total 0.5 mg/dl (0.2-1.0); Calcium 8.2 mg/dl (8.6-10.3); Creatinine Clr Calc Pharmacy 95.8 ml/min; Est GFR (African American) 116.2 ml/min; Est GFR (Non-African American) 100.3 ml/min; Globulin 1.9 gm/dl (2.5-4.0); Potassium 3.2 mmol/L (3.5-5.1); Total Protein 5.2 gm/dl (6.0-8.3)
[2023-01-31 09:15] LABS: Partial Thromboplastin Ratio 3.1
[2023-01-31 09:39] LABS: Partial Thromboplastin Time 88.5 Seconds (21.0-31.0)
[2023-01-31 09:45] LABS: Basophils # (auto) 0.02 K/uL (0-0.2); Basophils % (auto) 0.2 %; Eosinophils # (auto) 0.02 K/uL (0-0.50); Eosinophils % (auto) 0.2 %; Hematocrit (blood only) 24.7 % (42.0-52.0); Hemoglobin 8.6 g/dl (14.0-18.0); Immature Granulocytes # (auto) 0.05 K/uL (0.01-0.20); Immature Granulocytes % (auto) 0.4 %; Lymphocytes % (auto) 16.6 %; Mean Corpuscular Hemoglobin 29.4 pg (25.0-34.0); Mean Corpuscular Hgb Conc 34.8 g/dL (32.0-36.0); Mean Corpuscular Volume 84.3 fL (80.0-100.0); Mean Platelet Volume 11.1 fL (9.4-12.4); Monocytes # (auto) 1.12 K/uL (0.11-0.59); Monocytes % (auto) 9.8 %; Neutrophils # (auto) 8.37 K/uL (1.40-6.50); Neutrophils % (auto) 72.8 %; Platelet Count 241 K/uL (130-400); RDW Coefficient of Variation 14.9 % (11.5-14.5); RDW Standard Deviation 45.4 fL (36.4-46.3); Red Blood Count 2.93 M/uL (4.70-6.10); White Blood Count 11.48 K/ul (4.8-10.8)
[2023-01-31 11:47] LABS: Basophils # (auto) 0.02 K/uL (0-0.2); Basophils % (auto) 0.2 %; Eosinophils # (auto) 0.02 K/uL (0-0.50); Eosinophils % (auto) 0.2 %; Hematocrit (blood only) 25.6 % (42.0-52.0); Hemoglobin 8.9 g/dl (14.0-18.0); Immature Granulocytes # (auto) 0.15 K/uL (0.01-0.20); Immature Granulocytes % (auto) 1.5 %; Lymphocytes # (auto) 1.72 K/uL (1.2-3.4); Lymphocytes % (auto) 17.2 %; Mean Corpuscular Hemoglobin 28.7 pg (25.0-34.0); Mean Corpuscular Hgb Conc 34.8 g/dL (32.0-36.0); Mean Corpuscular Volume 82.6 fL (80.0-100.0); Monocytes # (auto) 0.99 K/uL (0.11-0.59); Monocytes % (auto) 9.9 %; Neutrophils # (auto) 7.08 K/uL (1.40-6.50); Platelet Count 210 K/uL (130-400); RDW Coefficient of Variation 14.8 % (11.5-14.5); RDW Standard Deviation 43.3 fL (36.4-46.3); White Blood Count 9.98 K/ul (4.8-10.8)
--- NOTE | 2023-01-31 12:01 | Electrocardiogram Report ---
Test Reason : Blood Pressure : / mmHG Vent. Rate : 111 BPM Atrial Rate : 111 BPM P-R Int : 138 ms QRS Dur : 082 ms QT Int : 298 ms P-R-T Axes : 053 014 200 degrees QTc Int : 405 ms Sinus tachycardia Abnormal ECG When compared with ECG of 30-JAN-2023 13:58, T wave inversion less evident in Inferior leads T wave inversion more evident in Lateral leads Confirmed by Robert Evans ([id number] on 01/31/2023 12:01:38 PM Referred By: REFERRED SELF Confirmed By:Gilbert Evans
[2023-01-31 12:25] LABS: BUN Creatinine Ratio 28.4 (10-20); Calcium 8.3 mg/dl (8.6-10.3); Creatinine Clr Calc Pharmacy 95.8 ml/min; Est GFR (African American) 116.2 ml/min; Est GFR (Non-African American) 100.3 ml/min; Potassium 3.3 mmol/L (3.5-5.1)
[2023-01-31] MEDS ORDERED: LACTATED RINGER'S 1,000 ML IV SCH (15:15)
[2023-01-31] MEDS: POTASSIUM CHLORIDE / WTR 10 MEQ/100 ML PLCT IV SCH ×4 (15:54→20:23)
[2023-01-31] MEDS: HEPARIN SODIUM/DEXTROSE 25,000 UNITS/500 ML BAG IV SCH (15:57)
[2023-01-31 18:04] LABS: Partial Thromboplastin Ratio 2.9
[2023-01-31] MEDS: MONTELUKAST SODIUM 10 MG TABLET PO SCH (21:14)
[2023-01-31] MEDS: QUEtiapine FUMARATE 25 MG TABLET PO SCH (21:14)
[2023-02-01] MEDS: HEPARIN SODIUM/DEXTROSE 25,000 UNITS/500 ML BAG IV SCH ×2 (00:06→16:38)
[2023-02-01 01:41] LABS: Partial Thromboplastin Ratio 1.9
[2023-02-01 01:51] LABS: Partial Thromboplastin Time 52.7 Seconds (21.0-31.0)
[2023-02-01 07:54] LABS: Basophils # (auto) 0.02 K/uL (0-0.2); Basophils % (auto) 0.2 %; Eosinophils # (auto) 0.08 K/uL (0-0.50); Eosinophils % (auto) 0.8 %; Hematocrit (blood only) 22.1 % (42.0-52.0); Hemoglobin 7.6 g/dl (14.0-18.0); Immature Granulocytes # (auto) 0.05 K/uL (0.01-0.20); Immature Granulocytes % (auto) 0.5 %; Lymphocytes % (auto) 23.1 %; Mean Corpuscular Hemoglobin 29.3 pg (25.0-34.0); Mean Corpuscular Hgb Conc 34.4 g/dL (32.0-36.0); Mean Corpuscular Volume 85.3 fL (80.0-100.0); Mean Platelet Volume 10.7 fL (9.4-12.4); Monocytes # (auto) 0.98 K/uL (0.11-0.59); Monocytes % (auto) 9.8 %; Neutrophils # (auto) 6.54 K/uL (1.40-6.50); Neutrophils % (auto) 65.6 %; Platelet Count 196 K/uL (130-400); RDW Coefficient of Variation 14.7 % (11.5-14.5); RDW Standard Deviation 45.7 fL (36.4-46.3); Red Blood Count 2.59 M/uL (4.70-6.10); White Blood Count 9.97 K/ul (4.8-10.8)
[2023-02-01 08:15] LABS: RBC Morphology Unremarkable
[2023-02-01 08:30] LABS: BUN Creatinine Ratio 19.2 (10-20); Calcium 8.2 mg/dl (8.6-10.3); Creatinine Clr Calc Pharmacy 97.1 ml/min; Est GFR (African American) 116.9 ml/min; Est GFR (Non-African American) 100.8 ml/min; Phosphorus 2.2 mg/dl (2.5-4.9); Potassium 3.5 mmol/L (3.5-5.1)
[2023-02-01 08:38] LABS: Partial Thromboplastin Ratio 1.7
[2023-02-01 08:39] LABS: Partial Thromboplastin Time 49.3 Seconds (21.0-31.0)
[2023-02-01] MEDS: TAMSULOSIN HCL 0.4 MG CAP PO SCH (09:44)
[2023-02-01] MEDS: amLODIPine BESYLATE 5 MG TAB PO SCH (09:44)
[2023-02-01] MEDS: FINASTERIDE 5 MG TAB PO SCH (09:45)
[2023-02-01] MEDS: THIAMINE HCL 200 MG in SODIUM CHLORIDE 0.9% 50 ML IV SCH ×3 (09:52→20:56)
--- NOTE | 2023-02-01 10:15 | Hospitalist Progress Note ---
Date of Service February 01, 2023 Assessment & Plan (1) Ambulatory dysfunction: (2) Pulmonary embolism: (3) Leukocytosis: (4) Folate deficiency: Plan Ambulatory dysfunction -Suspect combination of lorazepam and tramadol as driving factor for ambulatory dysfunction. Ativan prescribed for over 20 years, PCP has been working on taper for several month. -Possible benzodiazepine withdrawal, AWSS with lorazepam PRN. Had not received lorazepam since the ED. -Thiamine 200mg IV TID for possible Wernicke's (noted Korsakoffs suspected during admission in October). -Tramadol stopped, advised against any further outpatient benzo prescriptions -PT/OT evaluations Pulmonary embolism -Continue IV heparin -Decreased ambulation secondary to weakness for several weeks along with shortness of breath -Could consider immobilization as provocation for PE to guide length of period to anticoagulate -Subjective shortness of breath with some improvement today, respiratory status stable on room air Anemia, Concern of Possible GI Bleed -Hgb dropped from 12.8 on arrival to 7.8 this a.m. -Repeat H&H pending this afternoon. Trend CBC q12h and transfuse if <7 -FOBT today positive, GI consulted -Patient to be NPO at midnight for possible EGD tomorrow -Protonix 40 BID added -Per Dr. Toribio, will be ok to continue heparin drip prior to EGD given acute PE Elevated troponin Very mildly elevated, downtrended. Leukocytosis No clear infection on exam. Diffuse gallbladder wall thickening on US and findings on CT do not correlate clinically with exam. Procalcitonin negative. Blood cultures with no growth at 48 hours. BPH (benign prostatic hyperplasia) -Continue tamsulosin and finasteride Admission and Anticipated Discharge Date Admission Date: January 30, 2023 Supervising Physician Co-Signing Physician Notes Attending attestation Pt seen and examined in concert with Dr. Mauricio. In agreement with the documented findings as noted in the resident documentation with any exceptions or additions as noted here. Resting in bed. Stable fatigue and without other complaints at present. Does endorse at least one melanotic stool in the recent past. No recent BM though feels like he may go at any time. Amenable to bowel regimen On examination, S1/S2 nl RRR no MCG. CTAB. Abd NT/ND BS+ve. CNII-XII grossly intact. Melanotic stool w/ concern for GIB w/ normocytic anemia - trend CBC q12h, transfuse at 7. GI consult placed. Continue PPI BID. Will continue heparin. Pulmonary embolism - continue heparin drip and transition to PO apixaban when hgb stable if possible. Ambulatory dysfunction and weakness - PT/OT consult Elevated troponin with concern for demand ischemia - improved on repeat study, consider further evaluation with management of underlying disease Concern for benzodiazepine overuse - monitor for withdrawal symptoms Else see resident documentation as noted. Subjective Patient seen and examined at bedside. Patient notes he had some chills yesterday afternoon but is feeling better this morning and has a bit more energy. He states that he is able to take some deeper breaths today which is an improvement. Notes that he had a dark/tarry bowel movement on the day of admission, has not had any bright red blood per rectum or dark stools since then per his recollection. Review of Systems Review of Systems: As per above Physical Exam Constitutional: + thin Eyes: + anicteric sclerae ENMT: External ears and nose normal, moist mucous membranes Respiratory: normal respiratory effort, lungs clear to auscultation Cardiovascular: Rate/Rhythm: regular rhythm and + tachycardic No lower extremity edema Gastrointestinal (Abdomen): normal bowel sounds, soft, nontender, no hepatosplenomegaly Skin: no rashes, warm and dry Psychiatric: A+Ox3, euthymic affect Results & Data Results & Data Vital Signs (Past 12 Hours) Vital Signs Temp Pulse Pulse Pulse Resp BP Pulse Ox 02/01/23 08:44 37.4 C 99 H 20 108/70 02/01/23 06:00 99 H 02/01/23 04:06 37.9 C H 102 H 20 120/70 99 02/01/23 00:01 37.2 C 97 H 20 120/75 98 01/31/23 23:38 69 O2 Del Method 02/01/23 08:44 Room Air 02/01/23 06:00 02/01/23 04:06 Room Air 02/01/23 00:01 Room Air 01/31/23 23:38 Resident Activity Tracking Resident Involvement: Resident Care Provided Care Provided: Adult Hospital Medicine
[2023-02-01] MEDS: PANTOprazole 40 MG in SYRINGE 0 ML IV SCH ×2 (10:46→20:46)
[2023-02-01 16:56] LABS: Hematocrit (blood only) 21.8 % (42.0-52.0); Hemoglobin 7.4 g/dl (14.0-18.0)
[2023-02-01] MEDS ORDERED: SODIUM CHLORIDE 0.9% 250 ML IV PRN (17:41)
[2023-02-01] MEDS: MONTELUKAST SODIUM 10 MG TABLET PO SCH (20:45)
[2023-02-01] MEDS: QUEtiapine FUMARATE 25 MG TABLET PO SCH (20:46)
[2023-02-01 23:33] LABS: Hematocrit (blood only) 22.4 % (42.0-52.0); Hemoglobin 7.5 g/dl (14.0-18.0)
[2023-02-02 07:09] LABS: Basophils # (auto) 0.03 K/uL (0-0.2); Basophils % (auto) 0.3 %; Eosinophils # (auto) 0.16 K/uL (0-0.50); Eosinophils % (auto) 1.8 %; Hematocrit (blood only) 24.6 % (42.0-52.0); Hemoglobin 8.2 g/dl (14.0-18.0); Immature Granulocytes # (auto) 0.05 K/uL (0.01-0.20); Immature Granulocytes % (auto) 0.6 %; Lymphocytes # (auto) 2.17 K/uL (1.2-3.4); Lymphocytes % (auto) 24.2 %; Mean Corpuscular Hemoglobin 29.2 pg (25.0-34.0); Mean Corpuscular Hgb Conc 33.3 g/dL (32.0-36.0); Mean Corpuscular Volume 87.5 fL (80.0-100.0); Mean Platelet Volume 10.5 fL (9.4-12.4); Monocytes # (auto) 0.73 K/uL (0.11-0.59); Monocytes % (auto) 8.2 %; Neutrophils # (auto) 5.81 K/uL (1.40-6.50); Neutrophils % (auto) 64.9 %; Platelet Count 225 K/uL (130-400); RDW Standard Deviation 47.3 fL (36.4-46.3); Red Blood Count 2.81 M/uL (4.70-6.10); White Blood Count 8.95 K/ul (4.8-10.8)
[2023-02-02 07:29] LABS: BUN Creatinine Ratio 17.9 (10-20); Calcium 8.8 mg/dl (8.6-10.3); Creatinine Clr Calc Pharmacy 90.9 ml/min; Est GFR (African American) 113.7 ml/min; Est GFR (Non-African American) 98.1 ml/min; Potassium 3.6 mmol/L (3.5-5.1)
[2023-02-02 08:10] LABS: Partial Thromboplastin Time 56.8 Seconds (21.0-31.0)
--- NOTE | 2023-02-02 08:10 | Hospitalist Progress Note ---
Date of Service February 02, 2023 Assessment & Plan (1) Ambulatory dysfunction: (2) Pulmonary embolism: (3) Leukocytosis: (4) Folate deficiency: Plan Ambulatory dysfunction -Suspect combination of lorazepam and tramadol as driving factor for ambulatory dysfunction. Ativan prescribed for over 20 years, PCP has been working on taper for several month. -Possible benzodiazepine withdrawal, AWSS with lorazepam PRN. Had not received lorazepam since the ED. -Thiamine 200mg IV TID for possible Wernicke's (noted Korsakoffs suspected during admission in October). -Tramadol stopped, advised against any further outpatient benzo prescriptions -PT/OT evaluations Pulmonary embolism -Continue IV heparin -Decreased ambulation secondary to weakness for several weeks along with shortness of breath -Could consider immobilization as provocation for PE to guide length of period to anticoagulate -Subjective shortness of breath with some improvement today, respiratory status stable on room air Anemia, Concern of Possible GI Bleed -Hgb dropped from 12.8 to 7.8 on 02/01. Repeat Hgb this morning 8.2. -Trend CBC, transfuse if <7 -FOBT positive, GI consulted -EGD completed, no active bleed. Samples taken for biopsy. -Continue Protonix -Advance diet as tolerated Elevated troponin Very mildly elevated, downtrended. Leukocytosis No clear infection on exam. Diffuse gallbladder wall thickening on US and findings on CT do not correlate clinically with exam. Procalcitonin negative. Blood cultures with no growth. BPH (benign prostatic hyperplasia) -Continue tamsulosin and finasteride Admission and Anticipated Discharge Date Admission Date: January 30, 2023 Supervising Physician Co-Signing Physician Notes Attending attestation Pt seen and examined in concert with Dr. Mauricio. In agreement with the documented findings as noted in the resident documentation with any exceptions or additions as noted here. Resting in chair. Improved fatigue without other complaints at present. On examination, S1/S2 nl RRR no MCG. CTAB. Abd NT/ND BS+ve. CNII-XII grossly intact. Melanotic stool w/ concern for GIB w/ normocytic anemia - GI consult - EGD today without active bleed. Stable hgb. Continue PPI BID. Will continue heparin. Pulmonary embolism - continue heparin drip Ambulatory dysfunction and weakness - PT/OT consulted Concern for benzodiazepine overuse - monitor for withdrawal symptoms Else see resident documentation as noted. Subjective Patient was seen and examined at bedside. Patient is resting comfortably, no acute complaints. After EGD completed, patient was eating and feeling well. Has been able to ambulate some intermittently. Review of Systems Review of Systems: As per above Physical Exam Constitutional: + thin Eyes: + anicteric sclerae ENMT: Ears: no external ear abnormality Nose: no external nose abnormality Moist mucous membranes. Respiratory: normal respiratory effort, lungs clear to auscultation Cardiovascular: Rate/Rhythm: regular rhythm and + tachycardic Skin: no rashes, warm and dry Psychiatric: A+Ox3, euthymic affect Results & Data Results & Data Vital Signs (Past 12 Hours) Vital Signs Temp Pulse Pulse Resp BP Pulse Ox O2 Del Method 02/02/23 07:29 36.8 C 93 H 18 107/69 97 Room Air 02/02/23 07:20 77 02/02/23 04:51 36.6 C 95 H 20 108/68 97 Room Air 02/02/23 00:14 36.8 C 81 20 125/75 100 Room Air 02/02/23 00:00 65 Resident Activity Tracking Resident Involvement: Resident Care Provided Care Provided: Adult Hospital Medicine
[2023-02-02] MEDS: amLODIPine BESYLATE 5 MG TAB PO SCH (08:23)
[2023-02-02] MEDS: FINASTERIDE 5 MG TAB PO SCH (08:23)
[2023-02-02] MEDS: TAMSULOSIN HCL 0.4 MG CAP PO SCH (08:23)
[2023-02-02] MEDS: THIAMINE HCL 200 MG in SODIUM CHLORIDE 0.9% 50 ML IV SCH ×3 (08:29→21:34)
[2023-02-02] MEDS: PANTOprazole 40 MG in SYRINGE 0 ML IV SCH ×2 (08:49→21:36)
--- NOTE | 2023-02-02 09:57 | Gastrointestinal Consultation ---
Date of Consultation February 02, 2023 Assessment & Plan (1) Anemia: -Continue IV Protonix 40 mg BID -Keep NPO. Dr. Toribio wishes to proceed with an EGD today for further evaluation. -Continue to monitor H/H. (2) Abnormal gallbladder ultrasound: Imaging shows a borderline elevated CBD at 6.6 mm and concern for developing cholecystitis. LFTs are unremarkable. -Continue to monitor LFTs -Continue to monitor for clinical symptoms -Consider evaluation with MRCP & HIDA with EF after acute anemia is assessed today. Discussed ongoing heparin gtt with Dr. Toribio who notes that the primary team did not want to hold this and he is comfortable moving forward. Supervising Physician Co-Signing Physician Notes I saw the patient and agree with the findings as documented by JOSUE Bowens Proceed with EGD. risks/benefits and procedure discussed with patient, who agrees to proceed History of Present Illness Reason for Consultation: Anemia Attending Physician: Santiago Dolan MD History of Present Illness Patient is a 62 yo male who is currently hospitalized with a segmental PE on IV heparin gtt. His Hgb was noted to drop from 12.8 on 01/30 to 7.4 on 02/02. He denies any overt GI bleeding. He notes that he has had some heartburn and epigastric discomfort recently. He denies a history of GERD or PUD. He notes he has taken NSAIDs regularly prior to admission. He denies any pertinent family history. His charted bowel movements are formed, brown stool. He denies hematuria, bruising, epistaxis, bleeding gums. He notes he had a colonoscopy in 2021 with [facility] that was reportedly unremarkable. He denies any further new issues at present. He has been NPO since prior to midnight. His vitals are stable and he's saturating at 97% on room air. He notes significant improvement in his SOB since admission. CT chest shows a subsegmental pulmonary embolus. It appears he is presently prescribed IV Protonix 40 mg BID. Allergies Allergy/AdvReac Type Severity Reaction Status Date / Time No Known Allergies Allergy Verified 01/30/23 16:15 Home Medications Medication Instructions Recorded Confirmed Type amlodipine 5 mg tablet 5 mg PO DAILY 05/06/21 01/30/23 History quetiapine 50 mg tablet 50 mg PO HS 11/13/22 01/30/23 History finasteride 5 mg tablet (Proscar) 5 mg PO QAM #30 tabs 11/16/22 01/30/23 Rx lorazepam 1 mg tablet 1 mg PO TID PRN Unknown #1 tab 11/16/22 01/30/23 Rx tramadol 50 mg tablet 50 mg PO Q6H PRN pain #1 tab 11/16/22 01/30/23 Rx folic acid 1 mg tablet 1 mg PO DAILY 12/29/22 01/30/23 History montelukast 10 mg tablet 10 mg PO DAILY 12/29/22 01/30/23 History tamsulosin 0.4 mg capsule 0.8 mg PO DAILY #180 caps 12/29/22 01/30/23 Rx multivitamin with minerals-folic 1 tab PO DAILY 01/30/23 01/30/23 History acid 200 mcg chewable tablet (Men's Daily Gummies) thiamine HCl (vitamin B1) 100 mg 200 mg PO BID 01/30/23 01/30/23 History tablet (Vitamin B-1) Patient History Medical History Acute encephalopathy Anxiety Bipolar disorder with depression BPH (benign prostatic hyperplasia) Cervical radiculopathy Cervical spondylosis History of substance abuse Hypertension Left arm pain Neural foraminal stenosis of cervical spine Strain of neck muscle Vitamin D deficiency Surgical History S/P excision of lipoma (05/24/21) Dr. Craig excision of lipoma LLQ abdomen: 05-24-2021 S/P hernia repair 03-26-2012 Family History Mother Cancer Breast cancer Thyroid disease Father Cancer Heart disease Hypertension Sister Kidney stones Social History Smoking Status: Never smoker Hx Alcohol Use: No Hx Substance Use: Yes Last Used Substance: Days (ago) Last Used Substance Other:: Initially denied use, then reported taking gummies last weekend Preferred Language: Syrian Communication Ability: Effective Visual Impairment: No Limitations Hearing Ability: Normal Cable Repairer Required: No Beliefs That Will Affect Care: None marital status: Single Current Living Situation: Alone Current Living Situation Comment: Lives at home with dog current occupational status: employed 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 Feels Safe at Home: Yes Safety Concerns: Feels Safe At This Time during the past year weight has: decreased > 10 lbs Assistive Devices: Glasses Review of Systems Constitutional: no fever and no chills Respiratory: + dyspnea on exertion; no cough and no dyspnea Cardiovascular: no chest pain Gastrointestinal: no abdominal pain, no coffee ground emesis, no hematemesis, no blood in stools and no melena Physical Exam Constitutional: well developed Respiratory: normal respiratory effort Cardiovascular: Rate/Rhythm: regular rate Gastrointestinal (Abdomen): normal bowel sounds, soft, nontender, no hepatosplenomegaly Psychiatric: Orientation: alert and oriented x 3 Results & Data Vital Signs (Past 12 Hours) Vital Signs Temp Pulse Pulse Resp BP Pulse Ox O2 Del Method 02/02/23 07:29 36.8 C 93 H 18 107/69 97 Room Air 02/02/23 07:20 77 02/02/23 04:51 36.6 C 95 H 20 108/68 97 Room Air 02/02/23 00:14 36.8 C 81 20 125/75 100 Room Air 02/02/23 00:00 65 PG Care Time/CCT Total # of Minutes Spent Total Time Spent with Patient: Total time spent is greater than 50% in coordination of care (as documented) at patient's floor/unit and/or counseling patient: Coding Level of Care Code 96000 IN/OBS CONSULT LVL 4,60M Diagnoses Anemia D64.9 Abnormal gallbladder ultrasound R93.2
[2023-02-02 12:32] LABS: Marijuana Quant, GCMS Urine 180 ng/mL (<5)
[2023-02-02] MEDS ORDERED: LIDOCAINE 2% 2 ML VIAL/AMP(20MG/ML) INFIL ONE ×2 (14:51)
[2023-02-02] MEDS ORDERED: PROPOFOL IV EMULSION 10 MG/ML 20 ML VIAL IV ONE (14:51)
[2023-02-02] MEDS ORDERED: BENZOCAINE/TETRACAIN/BUTAM 50 APPLN/5 GM CAN EXT ONE (14:54)
--- NOTE | 2023-02-02 15:07 | Anesthesiology Consultation ---
Date of Service February 02, 2023 History Surgery Operation Date: 02/02/23 16:30 Proposed Procedures p Esophagogastroduodenoscopy Dr. Toribio - Rick Toribio MD Height/Weight Height: 5 ft 6 in Weight: 65.8 kg Allergies Allergy/AdvReac Type Severity Reaction Status Date / Time No Known Allergies Allergy Verified 01/30/23 16:15 Medications Home Medications Medication Instructions Recorded Confirmed Last Taken amlodipine 5 mg tablet 5 mg PO DAILY 05/06/21 01/30/23 01/29/23 quetiapine 50 mg tablet 50 mg PO HS 11/13/22 01/30/23 01/29/23 finasteride 5 mg tablet (Proscar) 5 mg PO QAM #30 tabs 11/16/22 01/30/23 01/29/23 lorazepam 1 mg tablet 1 mg PO TID PRN Unknown #1 tab 11/16/22 01/30/23 Unknown tramadol 50 mg tablet 50 mg PO Q6H PRN pain #1 tab 11/16/22 01/30/23 Unknown folic acid 1 mg tablet 1 mg PO DAILY 12/29/22 01/30/23 01/29/23 montelukast 10 mg tablet 10 mg PO DAILY 12/29/22 01/30/23 01/29/23 tamsulosin 0.4 mg capsule 0.8 mg PO DAILY #180 caps 12/29/22 01/30/23 01/29/23 multivitamin with minerals-folic 1 tab PO DAILY 01/30/23 01/30/23 01/29/23 acid 200 mcg chewable tablet (Men's Daily Gummies) thiamine HCl (vitamin B1) 100 mg 200 mg PO BID 01/30/23 01/30/23 01/29/23 tablet (Vitamin B-1) Active Medications Generic Name Dose Route Start Last Admin Trade Name Freq PRN Reason Stop Dose Admin Amlodipine Besylate 5 mg 01/31/23 09:00 02/02/23 08:23 Amlodipine Besylate 5 Mg Tab PO 03/02/23 08:59 5 mg DAILY GIRMA Administration Finasteride 5 mg 01/31/23 09:00 02/02/23 08:23 Finasteride 5 Mg Tab PO 03/02/23 08:59 5 mg QAM GIRMA Administration Heparin Sodium/Dextrose 25,000 units in 500 mls @ 19 mls/hr 01/30/23 17:30 02/02/23 06:53 Heparin Sodium/Dextrose IV 03/01/23 17:29 950 units/hr .Q24H GIRMA 19 mls/hr Titration Protocol 950 UNITS/HR Thiamine HCl 200 mg/ Sodium 52 mls @ 210 mls/hr 01/30/23 22:03 02/02/23 14:29 Chloride IV 03/01/23 22:02 210 mls/hr TID GIRMA Administration Pantoprazole Sodium 40 mg/ 10 mls @ 5 mls/min 02/01/23 09:45 02/02/23 08:49 Syringe IV 03/03/23 09:44 5 mls/min BID GIRMA Administration Montelukast Sodium 10 mg 01/30/23 22:03 02/01/23 20:45 Montelukast Sodium 10 Mg Tablet PO 03/01/23 22:02 10 mg HS GIRMA Administration Quetiapine Fumarate 50 mg 01/30/23 22:03 02/01/23 20:46 Quetiapine Fumarate 25 Mg Tablet PO 03/01/23 22:02 50 mg HS GIRMA Administration Tamsulosin HCl 0.8 mg 01/31/23 09:00 02/02/23 08:23 Tamsulosin Hcl 0.4 Mg Cap PO 03/02/23 08:59 0.8 mg DAILY GIRMA Administration Past Medical History Medical History Acute encephalopathy Anxiety Bipolar disorder with depression BPH (benign prostatic hyperplasia) Cervical radiculopathy Cervical spondylosis History of substance abuse Hypertension Left arm pain Neural foraminal stenosis of cervical spine Strain of neck muscle Vitamin D deficiency Past Family History Family History Mother Cancer Breast cancer Thyroid disease Father Cancer Heart disease Hypertension Sister Kidney stones Past Surgical History Surgical History S/P excision of lipoma (05/24/21) Dr. Craig excision of lipoma LLQ abdomen: 05-24-2021 S/P hernia repair 03-26-2012 Social History Smoking Status: Never smoker Hx Alcohol Use: No Hx Substance Use: Yes substance use type: marijuana Last Used Substance: Days (ago) Last Used Substance Other:: Initially denied use, then reported taking gummies last weekend Physical Exam Vital Signs Last Vital Signs Temp 36.8 C 02/02/23 11:17 Pulse 82 02/02/23 11:17 Resp 18 02/02/23 11:17 BP 100/67 02/02/23 11:17 Pulse Ox 100 02/02/23 11:17 O2 Del Method Room Air 02/02/23 11:17 Testing Laboratory Results 02/02/23 06:39 02/02/23 06:39 PT 11.9 Seconds (9.0-12.0) 01/30/23 14:02 INR 1.1 (0.9-1.1) 01/30/23 14:02 APTT 56.8 Seconds (21.0-31.0) H* 02/02/23 06:39 Urine Color Yellow 01/31/23 01:00 Urine Appearance Clear (Clear) 01/31/23 01:00 Urine pH 6.0 (4.5-7.5) 01/31/23 01:00 Ur Specific [place] 1.039 (1.000-1.030) H 01/31/23 01:00 Urine Protein Negative (Negative) 01/31/23 01:00 Urine Glucose (UA) Negative (Negative) 01/31/23 01:00 Urine Ketones Trace (Negative) H 01/31/23 01:00 Urine Nitrite Negative (Negative) 01/31/23 01:00 Ur Leukocyte Esterase Negative (Negative) 01/31/23 01:00 Blood Type O Positive 02/01/23 18:07 Antibody Screen NEGATIVE 02/01/23 18:07 01/30/23 15:31 Aerobic Blood Culture - Preliminary Blood No growth in Aerobic bottle after 48 hours. Anaerobic Blood Culture - Preliminary No growth in Anaerobic bottle after 48 hours. 01/30/23 15:31 Aerobic Blood Culture - Preliminary Blood No growth in Aerobic bottle after 48 hours. Anaerobic Blood Culture - Final
--- NOTE | 2023-02-02 15:51 | GI REPORT ---
Patient Name: Alejandro Verdugo Procedure Date: 02/02/2023 3:12 PM Date of : 1960 Admit Type: Inpatient Age: 62 Gender: Male Attending MD: Rick Toribio MD, Procedure: Upper GI endoscopy Providers: Rick Toribio MD Referring MD: Stella Rosas M.d. Indications: Suspected upper gastrointestinal bleeding in patient with unexplained iron deficiency anemia, Heme positive stool Medicines: Monitored Anesthesia Care Complications: No immediate complications. Estimated blood loss: None. Estimated Blood Loss: Estimated blood loss: none. Procedure: Pre-Anesthesia Assessment: - Prior Anticoagulants: The patient has taken heparin, last dose was day of procedure. - ASA Grade Assessment: III - A patient with severe systemic disease. After obtaining informed consent, the endoscope was passed under direct vision. Throughout the procedure, the patient's blood pressure, pulse, and oxygen saturations were monitored continuously. The Endoscope was introduced through the mouth, and advanced to the second part of duodenum. The upper GI endoscopy was accomplished without difficulty. The patient tolerated the procedure well. Findings: A medium-sized hiatal hernia was present. Localized mild mucosal changes characterized by granularity were found at the gastroesophageal junction/proximal stomach. Biopsies were taken with a cold forceps for histology. Estimated blood loss: none. Few non-bleeding cratered gastric ulcers with no stigmata of bleeding were found in the gastric antrum. Biopsies were taken with a cold forceps for Helicobacter pylori testing. Estimated blood loss: none. Many non-bleeding superficial duodenal ulcers with no stigmata of bleeding were found in the duodenal bulb. The second portion of the duodenum was normal. Impression: - Medium-sized hiatal hernia. - Granular mucosa in the esophagus. Biopsied. - Non-bleeding gastric ulcers with no stigmata of bleeding. Biopsied. - Non-bleeding duodenal ulcers with no stigmata of bleeding. - Normal second portion of the duodenum. Recommendation: - Return patient to [facility] for ongoing care. - Advance diet as tolerated today. - Await pathology results. -protonix 40 mg daily for at least the next 3 months. Rick Toribio MD 02/02/2023 3:51:36 PM This report has been signed electronically. Note Initiated On: 02/02/2023 3:12 PM Number of Addenda: 0 I attest to the content of the Intraoperative Record and orders documented therein, exceptions below {[id number]}
--- NOTE | 2023-02-02 16:00 | Anesthesiology Progress Note ---
Date of Service February 02, 2023 Anesthesia Post Procedure Vital Signs Vital Signs: Temp Pulse Pulse Resp BP Pulse Ox O2 Del Method 02/02/23 15:56 93 H 19 108/71 100 Room Air 02/02/23 15:41 105 H 24 106/69 100 Nasal Cannula 02/02/23 15:16 37.3 C 81 12 126/80 100 Room Air 02/02/23 11:17 36.8 C 82 18 100/67 100 Room Air 02/02/23 07:29 36.8 C 93 H 18 107/69 97 Room Air 02/02/23 07:20 77 02/02/23 04:51 36.6 C 95 H 20 108/68 97 Room Air 02/02/23 00:14 36.8 C 81 20 125/75 100 Room Air 02/02/23 00:00 65 02/01/23 20:01 37.3 C 89 20 136/75 100 Room Air 02/01/23 16:09 36.9 C 99 H 16 143/61 H 99 Room Air O2 Flow Rate 02/02/23 15:56 02/02/23 15:41 6 02/02/23 15:16 02/02/23 11:17 02/02/23 07:29 02/02/23 07:20 02/02/23 04:51 02/02/23 00:14 02/02/23 00:00 02/01/23 20:01 02/01/23 16:09 Transfer of Care Handoff Completed per policy Notes Mental Status: alert / awake / arousable and participated in evaluation Nausea / Vomiting: adequately controlled Pain: adequately controlled Airway Patency, RR, SpO2: stable & adequate BP & HR: stable & adequate Hydration State: stable & adequate Anesthetic Complications: no major complications apparent and Pt Satisfied with anesthetic care
[2023-02-02] MEDS: HEPARIN SODIUM/DEXTROSE 25,000 UNITS/500 ML BAG IV SCH (19:28)
[2023-02-02] MEDS: MONTELUKAST SODIUM 10 MG TABLET PO SCH (21:36)
[2023-02-02] MEDS: QUEtiapine FUMARATE 25 MG TABLET PO SCH (21:36)
[2023-02-03 07:21] LABS: Basophils # (auto) 0.03 K/uL (0-0.2); Basophils % (auto) 0.3 %; Eosinophils # (auto) 0.22 K/uL (0-0.50); Hematocrit (blood only) 23.3 % (42.0-52.0); Hemoglobin 7.8 g/dl (14.0-18.0); Immature Granulocytes # (auto) 0.07 K/uL (0.01-0.20); Immature Granulocytes % (auto) 0.6 %; Lymphocytes # (auto) 1.92 K/uL (1.2-3.4); Lymphocytes % (auto) 17.2 %; Mean Corpuscular Hemoglobin 29.3 pg (25.0-34.0); Mean Corpuscular Hgb Conc 33.5 g/dL (32.0-36.0); Mean Corpuscular Volume 87.6 fL (80.0-100.0); Mean Platelet Volume 10.5 fL (9.4-12.4); Monocytes # (auto) 0.78 K/uL (0.11-0.59); Neutrophils # (auto) 8.14 K/uL (1.40-6.50); Neutrophils % (auto) 72.9 %; Platelet Count 273 K/uL (130-400); RDW Coefficient of Variation 15.6 % (11.5-14.5); RDW Standard Deviation 48.7 fL (36.4-46.3); Red Blood Count 2.66 M/uL (4.70-6.10); White Blood Count 11.16 K/ul (4.8-10.8)
[2023-02-03 07:39] LABS: BUN Creatinine Ratio 16.3 (10-20); Calcium 8.9 mg/dl (8.6-10.3); Creatinine Clr Calc Pharmacy 82.4 ml/min; Est GFR (African American) 109.2 ml/min; Est GFR (Non-African American) 94.3 ml/min; Potassium 3.5 mmol/L (3.5-5.1)
[2023-02-03 07:44] LABS: Polychromasia 1+
[2023-02-03 08:04] LABS: Partial Thromboplastin Time 56.4 Seconds (21.0-31.0)
[2023-02-03] MEDS: FINASTERIDE 5 MG TAB PO SCH (08:37)
[2023-02-03] MEDS: PANTOprazole 40 MG in SYRINGE 0 ML IV SCH ×2 (08:37→22:10)
[2023-02-03] MEDS: amLODIPine BESYLATE 5 MG TAB PO SCH (08:37)
[2023-02-03] MEDS: TAMSULOSIN HCL 0.4 MG CAP PO SCH (08:37)
[2023-02-03] MEDS: THIAMINE HCL 200 MG in SODIUM CHLORIDE 0.9% 50 ML IV SCH ×3 (08:47→22:33)
--- NOTE | 2023-02-03 08:55 | Hospitalist Progress Note ---
Date of Service February 03, 2023 Assessment & Plan (1) Ambulatory dysfunction: (2) Pulmonary embolism: (3) Leukocytosis: (4) Folate deficiency: Plan Ambulatory dysfunction -Suspect combination of lorazepam and tramadol as driving factor for ambulatory dysfunction. Ativan prescribed for over 20 years, PCP has been working on taper for several month. -Possible benzodiazepine withdrawal, AWSS with lorazepam PRN. Had not received lorazepam since the ED. -Thiamine 200mg IV TID for possible Wernicke's (noted Korsakoffs suspected during admission in October). -Tramadol stopped, advised against any further outpatient benzo prescriptions -PT/OT evaluations -Recommend rehab stay Pulmonary embolism -Continue IV heparin -Decreased ambulation secondary to weakness for several weeks along with shortness of breath -Could consider immobilization as provocation for PE to guide length of period to anticoagulate -Consider transition to DOAC Anemia, Concern of Possible GI Bleed -Hgb dropped from 12.8 to 7.8 on 02/01. -Hgb 7.8 this morning with repeat at 7.9 this afternoon -Trend CBC, transfuse if <7 -FOBT positive, GI consulted -EGD completed, no active bleed. Samples taken for biopsy. -Continue Protonix Elevated troponin Very mildly elevated, downtrended. Leukocytosis No clear infection on exam. Diffuse gallbladder wall thickening on US and findings on CT do not correlate clinically with exam. Procalcitonin negative. Blood cultures with no growth. -WBC 9.93 this afternoon BPH (benign prostatic hyperplasia) -Continue tamsulosin and finasteride Admission and Anticipated Discharge Date Admission Date: January 30, 2023 Supervising Physician Co-Signing Physician Notes I personally examined the patient and verified yi points of history and exam, discussed case, and agree with decision making and plan documented by Dr. Mauricio. Patient requesting discharge, advised unsafe at this time. Advised him concern for anemia and deconditioning in setting of pulmonary embolism. PT recommending rehab. Monitor closely for benzodiazepine withdrawal due to chronic use. Subjective Patient seen and examined at bedside. No acute events overnight. This morning patient was resting in recliner at bedside, states that his shortness of breath is gradually improving. Denies any chest pain, abdominal pain, or dark bowel movements. Is anxious about being able to discharge and return home. PT reports he becomes easily short of breath with ambulation. Review of Systems Review of Systems: As per above Physical Exam Constitutional: + thin Eyes: + anicteric sclerae ENMT: Ears: no external ear abnormality Nose: no external nose abnormality Respiratory: normal respiratory effort, lungs clear to auscultation Cardiovascular: Rate/Rhythm: regular rhythm and + tachycardic Gastrointestinal (Abdomen): normal bowel sounds, soft, nontender, no hepatosplenomegaly Skin: no rashes, warm and dry Psychiatric: A+Ox3, euthymic affect Results & Data Results & Data Vital Signs (Past 12 Hours) Vital Signs Temp Pulse Pulse Resp BP Pulse Ox Pulse Ox 02/03/23 08:31 37.7 C H 104 H 20 126/71 100 02/03/23 07:45 02/03/23 00:00 101 H 02/02/23 22:00 99 02/02/23 23:16 36.9 C 79 14 122/80 99 O2 Del Method O2 Del Method 02/03/23 08:31 Room Air 02/03/23 07:45 Room Air 02/03/23 00:00 02/02/23 22:00 Room Air 02/02/23 23:16 Room Air Resident Activity Tracking Resident Involvement: Resident Care Provided Care Provided: Adult Hospital Medicine
[2023-02-03] MEDS: POLYETHYLENE (MIRALAX) 17 GM PACK PO SCH ×2 (10:55→21:36)
--- NOTE | 2023-02-03 11:40 | Communication Note ---
Date of Service: February 03, 2023 Patient underwent an EGD on 02/02/23. He was noted to have gastric & duodenal ulcers that were not actively bleeding. -Continue to monitor H/H -Continue PPI therapy upon discharge -Supportive care per primary team
[2023-02-03 13:18] LABS: Basophils # (auto) 0.03 K/uL (0-0.2); Basophils % (auto) 0.3 %; Eosinophils # (auto) 0.17 K/uL (0-0.50); Eosinophils % (auto) 1.7 %; Hematocrit (blood only) 24.4 % (42.0-52.0); Hemoglobin 7.9 g/dl (14.0-18.0); Immature Granulocytes # (auto) 0.07 K/uL (0.01-0.20); Immature Granulocytes % (auto) 0.7 %; Lymphocytes # (auto) 1.62 K/uL (1.2-3.4); Lymphocytes % (auto) 16.3 %; Mean Corpuscular Hemoglobin 28.8 pg (25.0-34.0); Mean Corpuscular Hgb Conc 32.4 g/dL (32.0-36.0); Mean Corpuscular Volume 89.1 fL (80.0-100.0); Mean Platelet Volume 10.6 fL (9.4-12.4); Monocytes # (auto) 0.69 K/uL (0.11-0.59); Monocytes % (auto) 6.9 %; Neutrophils # (auto) 7.35 K/uL (1.40-6.50); Neutrophils % (auto) 74.1 %; Nucleated RBC # (auto) 0.02 K/uL (0-0.12); Nucleated RBC % (auto) 0.2 %; Platelet Count 282 K/uL (130-400); RDW Coefficient of Variation 15.9 % (11.5-14.5); RDW Standard Deviation 50.3 fL (36.4-46.3); Red Blood Count 2.74 M/uL (4.70-6.10); White Blood Count 9.93 K/ul (4.8-10.8)
[2023-02-03 13:43] LABS: Polychromasia 1+
[2023-02-03] MEDS ORDERED: hydrOXYzine HCl 25 MG TAB PO STA (16:06)
[2023-02-03] MEDS: HEPARIN SODIUM/DEXTROSE 25,000 UNITS/500 ML BAG IV SCH (21:35)
[2023-02-03] MEDS: MONTELUKAST SODIUM 10 MG TABLET PO SCH (22:11)
[2023-02-03] MEDS: QUEtiapine FUMARATE 25 MG TABLET PO SCH (22:11)
[2023-02-04] MEDS: ACETAMINOPHEN 500 MG TAB PO PRN ×3 (01:15→20:19)
[2023-02-04] MEDS: hydrOXYzine HCl 10 MG TAB PO PRN ×2 (01:15→08:37)
[2023-02-04 06:44] LABS: Basophils # (auto) 0.02 K/uL (0-0.2); Basophils % (auto) 0.2 %; Eosinophils # (auto) 0.26 K/uL (0-0.50); Eosinophils % (auto) 2.9 %; Hematocrit (blood only) 21.8 % (42.0-52.0); Hemoglobin 7.2 g/dl (14.0-18.0); Immature Granulocytes % (auto) 1.1 %; Lymphocytes # (auto) 2.15 K/uL (1.2-3.4); Lymphocytes % (auto) 23.8 %; Mean Corpuscular Hemoglobin 29.1 pg (25.0-34.0); Mean Corpuscular Volume 88.3 fL (80.0-100.0); Mean Platelet Volume 10.6 fL (9.4-12.4); Monocytes # (auto) 0.76 K/uL (0.11-0.59); Monocytes % (auto) 8.4 %; Neutrophils # (auto) 5.73 K/uL (1.40-6.50); Neutrophils % (auto) 63.6 %; Platelet Count 285 K/uL (130-400); RDW Coefficient of Variation 15.5 % (11.5-14.5); RDW Standard Deviation 49.2 fL (36.4-46.3); Red Blood Count 2.47 M/uL (4.70-6.10); White Blood Count 9.02 K/ul (4.8-10.8)
[2023-02-04 06:55] LABS: BUN Creatinine Ratio 15.7 (10-20); Calcium 8.7 mg/dl (8.6-10.3); Creatinine Clr Calc Pharmacy 79.7 ml/min; Est GFR (African American) 107.7 ml/min; Est GFR (Non-African American) 92.9 ml/min
[2023-02-04 07:19] LABS: Polychromasia 1+
[2023-02-04 07:29] LABS: Partial Thromboplastin Ratio 1.7
--- NOTE | 2023-02-04 07:31 | Hospitalist Progress Note ---
Date of Service February 04, 2023 Assessment & Plan (1) Ambulatory dysfunction: (2) Pulmonary embolism: (3) Leukocytosis: (4) Folate deficiency: Plan Ambulatory dysfunction -Suspect combination of lorazepam and tramadol as driving factor for ambulatory dysfunction. Ativan prescribed for over 20 years, PCP has been working on taper for several month. -Possible benzodiazepine withdrawal, AWSS with lorazepam PRN. Had not received lorazepam since the ED. - increased anxiety/agitation concern for benzo withdrawal - complaining for insomnia- increase Seroquel to 100mg qhs -Thiamine 200mg IV TID for possible Wernicke's (noted Korsakoffs suspected during admission in October). -Tramadol stopped, advised against any further outpatient benzo prescriptions -PT/OT evaluations -Recommend rehab stay Pulmonary embolism -Continue IV heparin -Decreased ambulation secondary to weakness for several weeks along with shortness of breath -Could consider immobilization as provocation for PE to guide length of period to anticoagulate -Plan for transition to DOAC; plan to wait until hemoglobin stabilizes Anemia, Concern of Possible GI Bleed -Hgb dropped from 12.8 to 7.8 on 02/01. -Hgb 7.2 this morning; repeat this afternoon 8.2 - Iron studies and ferritin are pending - currently receiving thiamine supplementation -Trend CBC, transfuse if <7 -FOBT positive, GI consulted -EGD completed, no active bleed. Samples taken for biopsy. -Continue Protonix Anxiety - history of anxiety, has tried multiple different mediations per chart review; SSRI, Wellbutrin-> Ativan stopped at likely few days prior to admission Elevated troponin Very mildly elevated, downtrended. Leukocytosis No clear infection on exam. Diffuse gallbladder wall thickening on US and findings on CT do not correlate clinically with exam. Procalcitonin negative. Blood cultures with no growth. -WBC 9.02 this morning; continue to trend BPH (benign prostatic hyperplasia) -Continue tamsulosin and finasteride Admission and Anticipated Discharge Date Admission Date: January 30, 2023 Supervising Physician Co-Signing Physician Notes I personally examined the patient and verified yi points of history and exam, discussed case, and agree with decision making and plan documented by Dr. Montemayor. Patient remains frustrated, struggling with anxiety and past trauma, also chronic substance use (opioids and benzos). Patient open to psychiatry referral at this time. Hemoglobin with some improvment today, will give iron infusion and continue to monitor. Patient remains on heparin drip and will need transition to oral medication for pulmonary emboli. Subjective Pt was in recliner this morning. States that his dyspnea has slowly started to improve. Frustrated with prolonged hospital coarse. Was on chronic benzodiazepines which were stopped abruptly at start on admission due to concerns for ambulatory dysfunction. Has been having trouble sleeping and feels very anxious throughout the day. Review of Systems Review of Systems: As per above Physical Exam Physical Exam: Constitutional: well-appearing, no acute distress HEENT: NCAT, no conjunctival injection CV: regular rhythm, no murmur appreciated, extremities well-perfused, no LE edema Resp: CTABL, no wheezes/rales/rhonchi appreciated, no increased work of breathing MSK: no gross deformities appreciated Skin: warm, dry, no rash appreciated Neuro: alert, oriented, no focal neurologic deficit appreciated Results & Data Results & Data Vital Signs (Past 12 Hours) Vital Signs Temp Pulse Pulse Resp BP Pulse Ox O2 Del Method 02/04/23 04:00 36.9 C 103 H 18 114/71 99 Room Air 02/03/23 22:48 89 02/03/23 22:00 36.9 C 90 18 120/74 100 Room Air Resident Activity Tracking Resident Involvement: Resident Care Provided Care Provided: Adult Hospital Medicine
[2023-02-04 07:33] LABS: Partial Thromboplastin Time 47.5 Seconds (21.0-31.0)
[2023-02-04] MEDS: POLYETHYLENE (MIRALAX) 17 GM PACK PO SCH ×2 (08:36→21:00)
[2023-02-04] MEDS: PANTOprazole 40 MG in SYRINGE 0 ML IV SCH ×2 (08:37→20:20)
[2023-02-04] MEDS: amLODIPine BESYLATE 5 MG TAB PO SCH (08:38)
[2023-02-04] MEDS: FINASTERIDE 5 MG TAB PO SCH (08:38)
[2023-02-04] MEDS: TAMSULOSIN HCL 0.4 MG CAP PO SCH (08:39)
[2023-02-04] MEDS: THIAMINE HCL 200 MG in SODIUM CHLORIDE 0.9% 50 ML IV SCH ×3 (09:46→20:20)
[2023-02-04 13:05] LABS: Hematocrit (blood only) 25.1 % (42.0-52.0); Hemoglobin 8.2 g/dl (14.0-18.0)
[2023-02-04 13:24] LABS: Iron 18 mcg/dl (35-175); Total Iron Binding Cap Calc 320 mcg/dl (250-450); Transferrin (FE) Percent Satur 6 % (20-50); Unsaturated Iron Binding Cap 302 mcg/dl (155-355)
--- NOTE | 2023-02-04 17:13 | Communication Note ---
Date of Service: February 04, 2023 Dr. Carrillo and I spoke with patient in regards to benzodiazepine and opioid use moving forward. Pt was somewhat defensive, but agreeable to working towards lowing doses of both. Has not gotten either since admission, so concern for withdrawal. Anxiety has been a chronic issue for him, has tried a number of medications. Will consult psychiatry for help with mediation management for his anxiety.
[2023-02-04] MEDS ORDERED: IRON SUCROSE 200 MG in 0.9 % SODIUM CHLORIDE 100 ML IV ONE (17:15)
[2023-02-04] MEDS: MONTELUKAST SODIUM 10 MG TABLET PO SCH (20:20)
[2023-02-04] MEDS: QUEtiapine FUMARATE 100 MG TABLET PO SCH (21:32)
[2023-02-04] MEDS: HEPARIN SODIUM/DEXTROSE 25,000 UNITS/500 ML BAG IV SCH (22:41)
--- NOTE | 2023-02-05 06:40 | Hospitalist Progress Note ---
Date of Service February 05, 2023 Assessment & Plan (1) Ambulatory dysfunction: (2) Pulmonary embolism: (3) Leukocytosis: (4) Folate deficiency: Plan Ambulatory dysfunction -Suspect combination of lorazepam and tramadol as driving factor for ambulatory dysfunction. Ativan prescribed for over 20 years, PCP has been working on taper for several month. -Possible benzodiazepine withdrawal, AWSS with lorazepam PRN. Had not received lorazepam since the ED. - increased anxiety/agitation concern for benzo withdrawal - complaining for insomnia- increase Seroquel to 100mg qhs -Thiamine 200mg IV TID for possible Wernicke's (noted Korsakoffs suspected during admission in October). -Tramadol stopped, advised against any further outpatient benzo prescriptions -PT/OT evaluations -Recommend rehab stay Pulmonary embolism -Continue IV heparin -Decreased ambulation secondary to weakness for several weeks along with shortness of breath -Could consider immobilization as provocation for PE to guide length of period to anticoagulate -Plan for transition to DOAC; plan to wait until hemoglobin stabilizes Tachycardia - likely combination of PE, withdrawal and anemia - has been in sinus, continue to monitor on tele Anemia, Concern of Possible GI Bleed -Hgb dropped from 12.8 to 7.8 on 02/01. -Hgb 7.2 this morning; repeat this afternoon 8.2 - Iron/ferritin low; Venofer x 2 doses-> will need continued iron repletion - currently receiving thiamine supplementation -Trend CBC, transfuse if <7 -FOBT positive, GI consulted -EGD completed, no active bleed. Samples taken for biopsy. -Continue Protonix Anxiety - history of anxiety, has tried multiple different mediations per chart review; SSRI, Wellbutrin-> Ativan stopped at likely few days prior to admission - farhat consulted, plan for OP elevation - Trial of duloxetine with hydroxyzine prn Elevated troponin Very mildly elevated, downtrended. Leukocytosis No clear infection on exam. Diffuse gallbladder wall thickening on US and findings on CT do not correlate clinically with exam. Procalcitonin negative. Blood cultures with no growth. Continue to trend BPH (benign prostatic hyperplasia) -Continue tamsulosin and finasteride Admission and Anticipated Discharge Date Admission Date: January 30, 2023 Supervising Physician Co-Signing Physician Notes I personally examined the patient and verified yi points of history and exam, discussed case, and agree with decision making and plan documented by Dr. Montemayor. Patient with improvement today, he states he had better sleep which helped significantly. Patient open to trial of Cymbalta therapy following long discussion about importance of addressing mental health concerns. He does have a therapist for his past history of trauma and is open to establishing with psychiatrist outpatient. He has good insight about the importance of addressing his substance use disorder. Hemoglobin has been stable, patient receiving iron infusions, denies signs of bleeding. Patient optimistic about physical rehabilitation. Subjective Pt doing well this morning. Feeling a lot better, was able to get some sleep last night. Denies dark/bloody stools. Review of Systems Review of Systems: As per above Physical Exam Physical Exam: Constitutional: well-appearing, no acute distress HEENT: NCAT, no conjunctival injection CV: regular rhythm, no murmur appreciated, extremities well-perfused, no LE edema Resp: CTABL, no wheezes/rales/rhonchi appreciated, no increased work of breathing MSK: no gross deformities appreciated Skin: warm, dry, no rash appreciated Neuro: alert, oriented, no focal neurologic deficit appreciated Results & Data Results & Data Vital Signs (Past 12 Hours) Vital Signs Temp Pulse Pulse Resp BP Pulse Ox O2 Del Method 02/05/23 06:06 170 H 02/04/23 22:27 112 H 02/04/23 21:35 37.1 C 99 H 18 132/74 98 Room Air 02/04/23 19:54 36.9 C 103 H 20 120/78 99 Room Air Resident Activity Tracking Resident Involvement: Resident Care Provided Care Provided: Adult Hospital Medicine
[2023-02-05 08:31] LABS: Basophils # (auto) 0.05 K/uL (0-0.2); Basophils % (auto) 0.4 %; Eosinophils # (auto) 0.21 K/uL (0-0.50); Eosinophils % (auto) 1.8 %; Hematocrit (blood only) 24.3 % (42.0-52.0); Hemoglobin 7.9 g/dl (14.0-18.0); Immature Granulocytes # (auto) 0.21 K/uL (0.01-0.20); Immature Granulocytes % (auto) 1.8 %; Lymphocytes # (auto) 1.98 K/uL (1.2-3.4); Lymphocytes % (auto) 17.1 %; Mean Corpuscular Hemoglobin 28.8 pg (25.0-34.0); Mean Corpuscular Hgb Conc 32.5 g/dL (32.0-36.0); Mean Corpuscular Volume 88.7 fL (80.0-100.0); Mean Platelet Volume 10.1 fL (9.4-12.4); Monocytes # (auto) 0.93 K/uL (0.11-0.59); Monocytes % (auto) 8.1 %; Neutrophils # (auto) 8.17 K/uL (1.40-6.50); Neutrophils % (auto) 70.8 %; Nucleated RBC # (auto) 0.05 K/uL (0-0.12); Nucleated RBC % (auto) 0.4 %; Platelet Count 361 K/uL (130-400); RDW Coefficient of Variation 15.7 % (11.5-14.5); RDW Standard Deviation 50.8 fL (36.4-46.3); Red Blood Count 2.74 M/uL (4.70-6.10); White Blood Count 11.55 K/ul (4.8-10.8)
[2023-02-05 08:45] LABS: BUN Creatinine Ratio 13.1 (10-20); Calcium 9.2 mg/dl (8.6-10.3); Creatinine Clr Calc Pharmacy 84.4 ml/min; Est GFR (African American) 110.3 ml/min; Est GFR (Non-African American) 95.2 ml/min; Potassium 3.6 mmol/L (3.5-5.1)
[2023-02-05 09:04] LABS: Polychromasia 1+
[2023-02-05 09:09] LABS: Partial Thromboplastin Ratio 2.1
[2023-02-05 09:10] LABS: Partial Thromboplastin Time 59.9 Seconds (21.0-31.0)
[2023-02-05] MEDS: POLYETHYLENE (MIRALAX) 17 GM PACK PO SCH ×2 (09:32→20:49)
[2023-02-05] MEDS: THIAMINE HCL 200 MG in SODIUM CHLORIDE 0.9% 50 ML IV SCH ×3 (09:33→21:12)
[2023-02-05] MEDS: PANTOprazole 40 MG in SYRINGE 0 ML IV SCH ×2 (09:33→21:27)
[2023-02-05] MEDS: hydrOXYzine HCl 10 MG TAB PO PRN (09:34)
[2023-02-05] MEDS: TAMSULOSIN HCL 0.4 MG CAP PO SCH (09:34)
[2023-02-05] MEDS: FINASTERIDE 5 MG TAB PO SCH (09:34)
[2023-02-05] MEDS: amLODIPine BESYLATE 5 MG TAB PO SCH (09:34)
[2023-02-05] MEDS: ACETAMINOPHEN 500 MG TAB PO PRN ×2 (11:39→20:29)
--- NOTE | 2023-02-05 13:23 | Psychiatric Consultation ---
Date of Consultation February 05, 2023 Impression / Recommendations Impression 62 yo male with resolving AMS, presumably due to drug withdrawal and acute medical, no current ongoing evidence of benzo withdrawal. No active celia/psychosis but suspect underlying mood disorder driving his past substance abuse. Positive response to increase in Seroquel last pm does not aid in differential as can help delirium, etc. (1) Altered mental status: Plan declines daytime dosing of Seroquel for prn for anxiety do not restart benzos psychiatry referral for evaluation and outpatient care, patient agreeable Psych History Identifying Data 62 yo male from [place], admit medically on 01/30 for pulmonary embolism, confusion. Consult is by hospitalist service for medication recs for anxiety. Chief Complaint "I finally slept. Seroquel works." History of Present Illness Patient was previously seen on consultation in October [address] Arzate given suspicion of ongoing drug misuse (opiates, ativan) and hx of alcohol abuse. He lives alone and typically refuses releases/any police involvement to secure belongings/his dog so unclear the state of his home. He uses marijuana gummies for pain but quantitative level significantly less than last hospital stay. Vague hx of possible bipolar diagnosis, he essentially denies but does note hx of prior doses of Seroquel. He typically says he's tried everything and "nothing works" rather than giving a full past medication history. As last stay he denies a hx of inpatient hospitalization. Denies ETOh use for 3 years. He has taken Ativan 1 mg up to QID for 20 years. Per PDMP, got 28 day supply (110 pills) on 01/05/23 so suspect he ran out early. Dr. Carrillo confirmed that he is aware won't be restarted (and doesn't want) benzos and reportedly declines suboxone, etc. Has weapons secured. Denies SI. Allergies Allergy/AdvReac Type Severity Reaction Status Date / Time No Known Allergies Allergy Verified 01/30/23 16:15 Home Medications Medication Instructions Recorded Confirmed Type amlodipine 5 mg tablet 5 mg PO DAILY 05/06/21 01/30/23 History quetiapine 50 mg tablet 50 mg PO HS 11/13/22 01/30/23 History finasteride 5 mg tablet (Proscar) 5 mg PO QAM #30 tabs 11/16/22 01/30/23 Rx lorazepam 1 mg tablet 1 mg PO TID PRN Unknown #1 tab 11/16/22 01/30/23 Rx tramadol 50 mg tablet 50 mg PO Q6H PRN pain #1 tab 11/16/22 01/30/23 Rx folic acid 1 mg tablet 1 mg PO DAILY 12/29/22 01/30/23 History montelukast 10 mg tablet 10 mg PO DAILY 12/29/22 01/30/23 History tamsulosin 0.4 mg capsule 0.8 mg PO DAILY #180 caps 12/29/22 01/30/23 Rx multivitamin with minerals-folic 1 tab PO DAILY 01/30/23 01/30/23 History acid 200 mcg chewable tablet (Men's Daily Gummies) thiamine HCl (vitamin B1) 100 mg 200 mg PO BID 01/30/23 01/30/23 History tablet (Vitamin B-1) Patient History Medical History Acute encephalopathy Anxiety Bipolar disorder with depression BPH (benign prostatic hyperplasia) Cervical radiculopathy Cervical spondylosis History of substance abuse Hypertension Left arm pain Neural foraminal stenosis of cervical spine Strain of neck muscle Vitamin D deficiency Surgical History S/P excision of lipoma (05/24/21) Dr. Craig excision of lipoma LLQ abdomen: 05-24-2021 S/P hernia repair 03-26-2012 Family History Mother Cancer Breast cancer Thyroid disease Father Cancer Heart disease Hypertension Sister Kidney stones Social History Smoking Status: Never smoker Hx Alcohol Use: No Hx Substance Use: Yes Last Used Substance: Days (ago) Last Used Substance Other:: Initially denied use, then reported taking gummies last weekend Preferred Language: Greek Communication Ability: Effective Visual Impairment: No Limitations Hearing Ability: Normal Veterinary Practice Manager Required: No Beliefs That Will Affect Care: None marital status: Single Current Living Situation: Alone Current Living Situation Comment: Lives at home with dog current occupational status: employed 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 Feels Safe at Home: Yes Safety Concerns: Feels Safe At This Time during the past year weight has: decreased > 10 lbs Assistive Devices: Glasses Physical Exam Psychiatric: Orientation: alert Apperance: appropriately groomed Eye Contact: good eye contact Motor Behavior: no abnormal motor movements Speech: normal rate/rhythm/volume of speech Affect: euthymic affect Mood: no depressed mood Thought Process: + concrete thought process Thought Content: reality based without delusions Suicidal Thoughts: denies suicidal thoughts Homicidal Thoughts: denies homicidal thoughts Hallucinations: no auditory hallucinations and no visual hallucinations Cognition: attention grossly intact and language grossly intact Estimated Intelligence: consistent with education level Vital Signs (Past 24 Hours): Last Vital Signs Temp 36.8 C 02/05/23 12:10 Pulse 108 H 02/05/23 12:10 Resp 18 02/05/23 12:10 BP 133/80 02/05/23 12:10 Pulse Ox 99 02/05/23 12:10 O2 Del Method Room Air 02/05/23 12:10 O2 Flow Rate 6 02/02/23 15:41 Review of Systems All systems reviewed & are unremarkable except as noted in HPI & below Results & Data (PSY) Laboratory Results 02/05/23 02/05/23 02/05/23 Range/Units 08:08 08:08 08:08 WBC 11.55 H (4.8-10.8) K/ul RBC 2.74 L (4.70-6.10) M/uL Hgb 7.9 L (14.0-18.0) g/dl Hct 24.3 L (42.0-52.0) % MCV 88.7 (80.0-100.0) fL MCH 28.8 (25.0-34.0) pg MCHC 32.5 (32.0-36.0) g/dL RDW Std Deviation 50.8 H (36.4-46.3) fL RDW Coeff of Ruddy 15.7 H (11.5-14.5) % Plt Count 361 (130-400) K/uL MPV 10.1 (9.4-12.4) fL Immature Gran % (Auto) 1.8 % Neut % (Auto) 70.8 % Lymph % (Auto) 17.1 % Bell % (Auto) 8.1 % Eos % (Auto) 1.8 % Baso % (Auto) 0.4 % Neut # (Auto) 8.17 H (1.40-6.50) K/uL Lymph # (Auto) 1.98 (1.2-3.4) K/uL Bell # (Auto) 0.93 H (0.11-0.59) K/uL Eos # (Auto) 0.21 (0-0.50) K/uL Baso # (Auto) 0.05 (0-0.2) K/uL Immature Gran # (Auto) 0.21 H (0.01-0.20) K/uL Absolute Nucleated RBC 0.05 (0-0.12) K/uL Nucleated RBC % (auto) 0.4 % Polychromasia 1+ APTT 59.9 H* (21.0-31.0) Seconds PTT Ratio 2.1 Sodium 140 (136-145) mmol/L Potassium 3.6 (3.5-5.1) mmol/L Chloride 108 H (98-107) mmol/L Carbon Dioxide 25 (21-32) mmol/L Anion Gap 7 (3-11) BUN 11 (6-23) mg/dl Creatinine 0.84 (0.6-1.4) mg/dl Est Cr Clr Drug Dosing 84.4 ml/min Est GFR ( Amer) 110.3 ml/min Est GFR (Non-Af Amer) 95.2 ml/min BUN/Creatinine Ratio 13.1 (10-20) Glucose 109 H (70-99(Fasting)) mg/dl Calcium 9.2 (8.6-10.3) mg/dl Ferritin (8-388) ng/ml Folate (>5.38) ng/ml 02/04/23 02/04/23 Range/Units 12:40 12:40 WBC (4.8-10.8) K/ul RBC (4.70-6.10) M/uL Hgb (14.0-18.0) g/dl Hct (42.0-52.0) % MCV (80.0-100.0) fL MCH (25.0-34.0) pg MCHC (32.0-36.0) g/dL RDW Std Deviation (36.4-46.3) fL RDW Coeff of Ruddy (11.5-14.5) % Plt Count (130-400) K/uL MPV (9.4-12.4) fL Immature Gran % (Auto) % Neut % (Auto) % Lymph % (Auto) % Bell % (Auto) % Eos % (Auto) % Baso % (Auto) % Neut # (Auto) (1.40-6.50) K/uL Lymph # (Auto) (1.2-3.4) K/uL Bell # (Auto) (0.11-0.59) K/uL Eos # (Auto) (0-0.50) K/uL Baso # (Auto) (0-0.2) K/uL Immature Gran # (Auto) (0.01-0.20) K/uL Absolute Nucleated RBC (0-0.12) K/uL Nucleated RBC % (auto) % Polychromasia APTT (21.0-31.0) Seconds PTT Ratio Sodium (136-145) mmol/L Potassium (3.5-5.1) mmol/L Chloride (98-107) mmol/L Carbon Dioxide (21-32) mmol/L Anion Gap (3-11) BUN (6-23) mg/dl Creatinine (0.6-1.4) mg/dl Est Cr Clr Drug Dosing ml/min Est GFR ( Amer) ml/min Est GFR (Non-Af Amer) ml/min BUN/Creatinine Ratio (10-20) Glucose (70-99(Fasting)) mg/dl Calcium (8.6-10.3) mg/dl Ferritin 11.3 (8-388) ng/ml Folate 16.60 (>5.38) ng/ml Medications Administered Acetaminophen (Acetaminophen 500 Mg Tab) 1,000 mg PO Q8H PRN PRN Reason: Headache or Pain Stop: 03/06/23 00:45 Last Admin: 02/05/23 11:39 Dose: 1,000 mg Documented By: Admin: 02/04/23 20:19 Dose: 1,000 mg Documented By: Admin: 02/04/23 11:47 Dose: 1,000 mg Documented By: Admin: 02/04/23 01:15 Dose: 1,000 mg Documented By: BEBE Amlodipine Besylate (Amlodipine Besylate 5 Mg Tab) 5 mg PO DAILY GIRMA Stop: 03/02/23 08:59 Last Admin: 02/05/23 09:34 Dose: 5 mg Documented By: Admin: 02/04/23 08:38 Dose: 5 mg Documented By: Admin: 02/03/23 08:37 Dose: 5 mg Documented By: Admin: 02/02/23 08:23 Dose: 5 mg Documented By: Admin: 02/01/23 09:44 Dose: 5 mg Documented By: Admin: 01/31/23 08:01 Dose: 5 mg Documented By: MADHAVI Finasteride (Finasteride 5 Mg Tab) 5 mg PO QAM [facility] Stop: 03/02/23 08:59 Last Admin: 02/05/23 09:34 Dose: 5 mg Documented By: Admin: 02/04/23 08:38 Dose: 5 mg Documented By: Admin: 02/03/23 08:37 Dose: 5 mg Documented By: Admin: 02/02/23 08:23 Dose: 5 mg Documented By: Admin: 02/01/23 09:45 Dose: 5 mg Documented By: Admin: 01/31/23 08:01 Dose: 5 mg Documented By: MADHAVI Hydroxyzine HCl (Hydroxyzine Hcl 10 Mg Tab) 10 mg PO Q8 PRN PRN Reason: Anxiety Stop: 03/06/23 00:50 Last Admin: 02/05/23 09:34 Dose: 10 mg Documented By: Admin: 02/04/23 08:37 Dose: 10 mg Documented By: Admin: 02/04/23 01:15 Dose: 10 mg Documented By: BEBE Heparin Sodium/Dextrose (Heparin Sodium/Dextrose) 25,000 units in 500 mls @ 19 mls/hr IV .Q24H [facility]; Protocol Stop: 03/01/23 17:29 Last Admin: 02/04/23 22:41 Dose: 950 units/hr, 19 mls/hr Documented By: BEBE Co-signed By: MG Titration: 02/04/23 22:41 Dose: 950 units/hr, 19 mls/hr Documented By: BEBE Co-signed By: MG Admin: 02/03/23 21:35 Dose: 950 units/hr, 19 mls/hr Documented By: BEBE Co-signed By: DM Titration: 02/03/23 21:35 Dose: 950 units/hr, 19 mls/hr Documented By: BEBE Co-signed By: LUKAS Titration: 02/03/23 08:22 Dose: 950 units/hr, 19 mls/hr Documented By: AMS Co-signed By: ALIE Admin: 02/02/23 19:28 Dose: 950 units/hr, 19 mls/hr Documented By: MCS Co-signed By: AH Titration: 02/02/23 19:25 Dose: 0 units/hr, 0 mls/hr Documented By: MCS Co-signed By: AH Titration: 02/02/23 18:56 Dose: 950 units/hr, 19 mls/hr Documented By: MCS Co-signed By: KBB Titration: 02/02/23 06:53 Dose: 950 units/hr, 19 mls/hr Documented By: MOISESB Co-signed By: TPB Titration: 02/01/23 19:13 Dose: 950 units/hr, 19 mls/hr Documented By: TPB Co-signed By: ARMIDA Admin: 02/01/23 16:38 Dose: 950 units/hr, 19 mls/hr Documented By: KJL Co-signed By: RRR Titration: 02/01/23 16:38 Dose: 950 units/hr, 19 mls/hr Documented By: JORDANL Co-signed By: RRR Titration: 02/01/23 06:47 Dose: 950 units/hr, 19 mls/hr Documented By: KJL Co-signed By: SHARONA Titration: 02/01/23 01:53 Dose: 950 units/hr, 19 mls/hr Documented By: SHARONA Co-signed By: LUKASM Admin: 02/01/23 00:06 Dose: Not Given Documented By: Titration: 01/31/23 18:15 Dose: 950 units/hr, 19 mls/hr Documented By: RRR Co-signed By: MADHAVI Admin: 01/31/23 15:57 Dose: 1,000 units/hr, 20 mls/hr Documented By: BCD Co-signed By: RRR Titration: 01/31/23 15:57 Dose: 1,000 units/hr, 20 mls/hr Documented By: BCAi Co-signed By: RRR Titration: 01/31/23 10:59 Dose: 1,000 units/hr, 20 mls/hr Documented By: MADHAVI Co-signed By: RRR Titration: 01/31/23 09:44 Dose: 0 units/hr, 0 mls/hr Documented By: MADHAVI Co-signed By: RRR Titration: 01/31/23 07:00 Dose: 1,150 units/hr, 23 mls/hr Documented By: MADHAVI Co-signed By: SHARONA Titration: 01/31/23 02:43 Dose: 1,150 units/hr, 23 mls/hr Documented By: SHARONA Co-signed By: RADHA Admin: 01/30/23 19:02 Dose: 1,200 units/hr, 24 mls/hr Documented By: QGV Co-signed By: CAW Thiamine HCl 200 mg/ Sodium (Chloride) 52 mls @ 210 mls/hr IV TID GIRMA Stop: 03/01/23 22:02 Last Infusion: 02/05/23 10:27 Dose: 0 mls/hr Documented By: Admin: 02/05/23 09:33 Dose: 210 mls/hr Documented By: Infusion: 02/04/23 21:01 Dose: 0 mls/hr Documented By: Admin: 02/04/23 20:20 Dose: 210 mls/hr Documented By: Infusion: 02/04/23 14:41 Dose: 0 mls/hr Documented By: Admin: 02/04/23 14:06 Dose: 210 mls/hr Documented By: Infusion: 02/04/23 10:08 Dose: 0 mls/hr Documented By: Admin: 02/04/23 09:46 Dose: 210 mls/hr Documented By: Infusion: 02/03/23 22:48 Dose: 0 mls/hr Documented By: Admin: 02/03/23 22:33 Dose: 210 mls/hr Documented By: Infusion: 02/03/23 15:29 Dose: 0 mls/hr Documented By: Admin: 02/03/23 14:30 Dose: 210 mls/hr Documented By: Infusion: 02/03/23 09:25 Dose: 0 mls/hr Documented By: Admin: 02/03/23 08:47 Dose: 210 mls/hr Documented By: Infusion: 02/02/23 22:58 Dose: 0 mls/hr Documented By: Admin: 02/02/23 21:34 Dose: 210 mls/hr Documented By: Infusion: 02/02/23 15:09 Dose: 0 mls/hr Documented By: Admin: 02/02/23 14:29 Dose: 210 mls/hr Documented By: Infusion: 02/02/23 08:59 Dose: 0 mls/hr Documented By: Admin: 02/02/23 08:29 Dose: 210 mls/hr Documented By: Infusion: 02/01/23 21:28 Dose: 0 mls/hr Documented By: Admin: 02/01/23 20:56 Dose: 210 mls/hr Documented By: Infusion: 02/01/23 16:43 Dose: 0 mls/hr Documented By: Admin: 02/01/23 15:18 Dose: 210 mls/hr Documented By: Infusion: 02/01/23 11:09 Dose: 0 mls/hr Documented By: Admin: 02/01/23 09:52 Dose: 210 mls/hr Documented By: Infusion: 01/31/23 21:55 Dose: 0 mls/hr Documented By: Admin: 01/31/23 21:14 Dose: 210 mls/hr Documented By: Infusion: 01/31/23 15:14 Dose: 0 mls/hr Documented By: Admin: 01/31/23 14:52 Dose: 210 mls/hr Documented By: Infusion: 01/31/23 10:19 Dose: 0 mls/hr Documented By: Admin: 01/31/23 08:05 Dose: 210 mls/hr Documented By: Infusion: 01/30/23 23:22 Dose: 0 mls/hr Documented By: Admin: 01/30/23 22:45 Dose: 210 mls/hr Documented By: SHARONA Pantoprazole Sodium 40 mg/ (Syringe) 10 mls @ 5 mls/min IV BID GIRMA Stop: 03/03/23 09:44 Last Admin: 02/05/23 09:33 Dose: 5 mls/min Documented By: Admin: 02/04/23 20:20 Dose: 5 mls/min Documented By: Admin: 02/04/23 08:37 Dose: 5 mls/min Documented By: Admin: 02/03/23 22:10 Dose: 5 mls/min Documented By: Admin: 02/03/23 08:37 Dose: 5 mls/min Documented By: Admin: 02/02/23 21:36 Dose: 5 mls/min Documented By: Admin: 02/02/23 08:49 Dose: 5 mls/min Documented By: Admin: 02/01/23 20:46 Dose: 5 mls/min Documented By: Admin: 02/01/23 10:46 Dose: 5 mls/min Documented By: ARMIDA Montelukast Sodium (Montelukast Sodium 10 Mg Tablet) 10 mg PO HS GIRMA Stop: 03/01/23 22:02 Last Admin: 02/04/23 20:20 Dose: 10 mg Documented By: Admin: 02/03/23 22:11 Dose: 10 mg Documented By: Admin: 02/02/23 21:36 Dose: 10 mg Documented By: Admin: 02/01/23 20:45 Dose: 10 mg Documented By: Admin: 01/31/23 21:14 Dose: 10 mg Documented By: Admin: 01/30/23 22:45 Dose: 10 mg Documented By: SHARONA Polyethylene Glycol (Polyethylene (Miralax) 17 Gm Pack) 17 gm PO BID GIRMA Stop: 03/05/23 08:59 Last Admin: 02/05/23 09:32 Dose: 17 gm Documented By: Admin: 02/04/23 21:00 Dose: Not Given Documented By: Admin: 02/04/23 08:36 Dose: 17 gm Documented By: Admin: 02/03/23 21:36 Dose: Not Given Documented By: Admin: 02/03/23 10:55 Dose: 17 gm Documented By: THERESE Quetiapine Fumarate (Quetiapine Fumarate 100 Mg Tablet) 100 mg PO HS GIRMA Stop: 03/06/23 20:59 Last Admin: 02/04/23 21:32 Dose: 100 mg Documented By: BEBE Tamsulosin HCl (Tamsulosin Hcl 0.4 Mg Cap) 0.8 mg PO DAILY GIRMA Stop: 03/02/23 08:59 Last Admin: 02/05/23 09:34 Dose: 0.8 mg Documented By: Admin: 02/04/23 08:39 Dose: 0.8 mg Documented By: Admin: 02/03/23 08:37 Dose: 0.8 mg Documented By: Admin: 02/02/23 08:23 Dose: 0.8 mg Documented By: Admin: 02/01/23 09:44 Dose: 0.8 mg Documented By: Admin: 01/31/23 08:01 Dose: 0.8 mg Documented By: MADHAVI Coding Level of Care Code 91224 [facility] Intl Hosp Care Lvl 2 Diagnoses Altered mental status R41.82
[2023-02-05] MEDS ORDERED: IRON SUCROSE 200 MG in 0.9 % SODIUM CHLORIDE 100 ML IV ONE (16:24)
[2023-02-05] MEDS: MONTELUKAST SODIUM 10 MG TABLET PO SCH (20:30)
[2023-02-05] MEDS: QUEtiapine FUMARATE 100 MG TABLET PO SCH (22:30)
[2023-02-05] MEDS: HEPARIN SODIUM/DEXTROSE 25,000 UNITS/500 ML BAG IV SCH (22:31)
[2023-02-06 06:34] LABS: Basophils # (auto) 0.05 K/uL (0-0.2); Basophils % (auto) 0.4 %; Eosinophils # (auto) 0.26 K/uL (0-0.50); Hematocrit (blood only) 23.7 % (42.0-52.0); Hemoglobin 7.6 g/dl (14.0-18.0); Immature Granulocytes # (auto) 0.59 K/uL (0.01-0.20); Immature Granulocytes % (auto) 4.5 %; Lymphocytes % (auto) 18.2 %; Mean Corpuscular Hemoglobin 28.7 pg (25.0-34.0); Mean Corpuscular Hgb Conc 32.1 g/dL (32.0-36.0); Mean Corpuscular Volume 89.4 fL (80.0-100.0); Mean Platelet Volume 9.9 fL (9.4-12.4); Monocytes # (auto) 1.05 K/uL (0.11-0.59); Neutrophils # (auto) 8.81 K/uL (1.40-6.50); Neutrophils % (auto) 66.9 %; Nucleated RBC # (auto) 0.08 K/uL (0-0.12); Nucleated RBC % (auto) 0.6 %; Platelet Count 385 K/uL (130-400); RDW Coefficient of Variation 15.9 % (11.5-14.5); RDW Standard Deviation 51.1 fL (36.4-46.3); Red Blood Count 2.65 M/uL (4.70-6.10); White Blood Count 13.16 K/ul (4.8-10.8)
[2023-02-06 06:58] LABS: BUN Creatinine Ratio 12.2 (10-20); Creatinine Clr Calc Pharmacy 78.8 ml/min; Est GFR (African American) 107.2 ml/min; Est GFR (Non-African American) 92.5 ml/min
[2023-02-06 07:01] LABS: Partial Thromboplastin Ratio 2.4
[2023-02-06 07:02] LABS: Partial Thromboplastin Time 67.6 Seconds (21.0-31.0)
[2023-02-06 07:04] LABS: Polychromasia 1+
--- NOTE | 2023-02-06 07:16 | Hospitalist Progress Note ---
Date of Service February 06, 2023 Assessment & Plan (1) Ambulatory dysfunction: (2) Pulmonary embolism: (3) Leukocytosis: (4) Folate deficiency: Plan Ambulatory dysfunction -Suspect combination of lorazepam and tramadol as driving factor for ambulatory dysfunction. Ativan prescribed for over 20 years, PCP has been working on taper for several month. -Possible benzodiazepine withdrawal, AWSS with lorazepam PRN. Had not received lorazepam since the ED. - increased anxiety/agitation concern for benzo withdrawal - complaining for insomnia- increase Seroquel to 100mg qhs -Thiamine 200mg IV TID for possible Wernicke's (noted Korsakoffs suspected during admission in October). -Tramadol stopped, advised against any further outpatient benzo prescriptions -PT/OT evaluations -Recommend rehab stay Pulmonary embolism -Continue IV heparin -Decreased ambulation secondary to weakness for several weeks along with shortness of breath -Could consider immobilization as provocation for PE to guide length of period to anticoagulate -Patient is hemoglobin stable at this time. Will transition from heparin to Eliquis on 02/06 at 2200. Tachycardia - likely combination of PE, withdrawal and anemia - has been in sinus, continue to monitor on tele Anemia, Concern of Possible GI Bleed -Hgb dropped from 12.8 to 7.8 on 02/01. -Hemoglobin stable at this time. - Iron/ferritin low; Venofer x 2 doses-> we will give another 3 doses of Venofer as long as patient is admitted to the hospital. - currently receiving thiamine supplementation -Trend CBC, transfuse if <7 -FOBT positive, GI consulted -EGD completed, no active bleed. Samples taken for biopsy. -Continue Protonix Anxiety - history of anxiety, has tried multiple different mediations per chart review; SSRI, Wellbutrin-> Ativan stopped at likely few days prior to admission - farhat consulted, plan for OP elevation - Trial of duloxetine with hydroxyzine prn .Follow-up outpatient with psychiatry. Currently getting set up for outpatient psych services at this time Elevated troponin Very mildly elevated, downtrended. Leukocytosis No clear infection on exam. Diffuse gallbladder wall thickening on US and findings on CT do not correlate clinically with exam. Procalcitonin negative. Blood cultures with no growth. Continue to trend BPH (benign prostatic hyperplasia) -Continue tamsulosin and finasteride Admission and Anticipated Discharge Date Admission Date: January 30, 2023 Supervising Physician Co-Signing Physician Notes I personally examined the patient and verified all yi points of history and exam, discussed case, and agree with decision making with Dr Hinojosa Feeling okay. Back pain chronic. Last colonoscopy about a year agonotes no concerning findings. Vitals noted, in general he is awake and alert pleasant no distress. Breathing unlabored no accessory muscle use good effort. Skin shows no rashes no pallor or icterus. Neuro without focal deficits. Weaknessanticipate rehab PEanticoagulation iron deficiency anemiaEGD reassuring, last colonoscopy about a year agonotes his diet is very poorpossibly just iron deficient from poor p.o. intakeIV iron replacement, outpatient GI follow-up back painbiomechanicalwould probably benefit from outpatient OMT Subjective Patient was seen bedside this morning. States that having pain in his hips and back. Has used tramadol in the past which helped. He also complains of some palpitations though have improved during his hospitalization. Denies any other issues or concerns at this time Review of Systems Review of Systems: All systems reviewed & are unremarkable except as noted in Subjective Physical Exam Physical Exam: Constitutional: well-appearing, no acute distress HEENT: NCAT, no conjunctival injection CV: regular rhythm, no murmur appreciated, extremities well-perfused, no LE edema Resp: CTABL, no wheezes/rales/rhonchi appreciated, no increased work of krsi athing MSK: no gross deformities appreciated Skin: warm, dry, no rash appreciated Neuro: alert, oriented, no focal neurologic deficit appreciated Results & Data Results & Data Vital Signs (Past 12 Hours) Vital Signs Temp Pulse Pulse Resp BP Pulse Ox O2 Del Method 02/06/23 07:07 112 H 02/05/23 22:45 36.9 C 89 18 118/75 98 Room Air 02/05/23 22:05 95 H 02/05/23 19:37 37.1 C 113 H 18 128/81 98 Room Air
[2023-02-06] MEDS: DULoxetine HCL 30 MG CAP PO SCH (08:32)
[2023-02-06] MEDS: amLODIPine BESYLATE 5 MG TAB PO SCH (08:33)
[2023-02-06] MEDS: POLYETHYLENE (MIRALAX) 17 GM PACK PO SCH ×2 (08:33→20:19)
[2023-02-06] MEDS: FINASTERIDE 5 MG TAB PO SCH (08:33)
[2023-02-06] MEDS: THIAMINE HCL 200 MG in SODIUM CHLORIDE 0.9% 50 ML IV SCH ×3 (08:37→21:34)
[2023-02-06] MEDS ORDERED: MELOXICAM 7.5 MG TAB PO ONE (09:12)
[2023-02-06] MEDS: PANTOprazole 40 MG in SYRINGE 0 ML IV SCH ×2 (09:29→20:19)
[2023-02-06] MEDS: TAMSULOSIN HCL 0.4 MG CAP PO SCH (09:29)
[2023-02-06 15:20] LABS: Partial Thromboplastin Ratio 1.8
[2023-02-06] MEDS: HEPARIN SODIUM/DEXTROSE 25,000 UNITS/500 ML BAG IV SCH (15:25)
[2023-02-06 15:33] LABS: Partial Thromboplastin Time 50.7 Seconds (21.0-31.0)
[2023-02-06] MEDS ORDERED: IRON SUCROSE 200 MG in 0.9 % SODIUM CHLORIDE 100 ML IV SCH (16:00)
--- NOTE | 2023-02-06 16:55 | Billing Data ---
Date of Service February 06, 2023 Coding Level of Care Code 13059 SUB INP/OBS CARE
[2023-02-06] MEDS: ACETAMINOPHEN 500 MG TAB PO PRN (19:36)
[2023-02-06] MEDS: QUEtiapine FUMARATE 100 MG TABLET PO SCH (20:18)
[2023-02-06] MEDS: APIXABAN 5 MG TABLET PO SCH (20:18)
[2023-02-06] MEDS: MONTELUKAST SODIUM 10 MG TABLET PO SCH (20:18)
--- NOTE | 2023-02-07 07:45 | Discharge Summary ---
Date of Service February 07, 2023 Admission HPI Per Admitting Provider Alejandro Verdugo is a 62 year old male who presents to the ER via EMS due to a fall this morning and unable to get up. History taking from patient very difficult due to tangential speech also noted during his admission for altered mental status in October. At that time he was diagnosed with marijuana, benzodiazepine and opiate use vs benzodiazepine withdrawal vs. Wernicke's encephalopathy causing his presentation. 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 He denies marijuana use despite his urine drug screen positive last admission and now. He reports difficulty ambulating at home. No chest pain or dizziness. He fell last night and thinks he hit his head and thinks he called EMS. He notes palpitations, shortness of breath, sweats, chills and headache although unable to tell me how long these symptoms have been going on as he reports both feeling ok and doing well yesterday but also having problems progressively getting worse for the last week. He reports not taking Ativan for the last 3 days as he has been unable to find any and reports his PCP has been trying to wean him off despite his prescriptions being filled at the same amount regularly. Regarding his shortness of breath he reports only being able to walk 20-30 feet prior to feeling very short of breath but none at rest. He is unsure why he takes tramadol. Previous noted reports cervical spine radiculopathy. He reports quitting alcohol 3 years ago with no recent consumption. Poor appetite but no nausea, vomiting or abdominal pain. Notes loose stool this morning after eating something yesterday. No taste since the start of the year. He denies smoking or marijuana use. He does note occasional hallucinations but nothing like what he was having in October. Admission Exam Per Admitting Provider Constitutional: well developed; + not well nourished and no acute distress Respiratory:L normal respiratory effort, lungs clear to auscultation Cardiovascular: Rate/Rhythm: regular rhythm and + tachycardic Heart Sounds: no murmur Extremities: normal capillary refill; no calf tenderness and no pedal edema Gastrointestinal (Abdomen): normal bowel sounds, soft, nontender, no hepatosplenomegaly Skin: no rashes, warm and dry Neurologic: moves all extremities and awake; no focal motor deficits and not confused Speech / Cognition: normal speech Motor/Sensory: no tremor and no pronator drift Cranial Nerves: sense of smell intact, PERRL, EOM intact bilaterally, normal facial strength, tongue midline, able to rotate head bilaterally, able to elevate shoulders bilaterally, no nystagmus and symmetric palate elevation Coordination: normal zqszyl-af-yhvi test Psychiatric: Orientation: alert, oriented to person and oriented to place; + not oriented to time Thought Process: + tangential thought process Principal Diagnosis Pulmonary embolism Discharge Exam Constitutional: well-appearing, no acute distress HEENT: NCAT, no conjunctival injection CV: regular rhythm, no murmur appreciated, extremities well-perfused, no LE edema Resp: CTABL, no wheezes/rales/rhonchi appreciated, no increased work of breathing GI: soft, nondistended, nontender, BS normoactive MSK: no gross deformities appreciated Skin: warm, dry, no rash appreciated Neuro: alert, oriented, no focal neurologic deficit appreciated Discharge Data Allergies Allergy/AdvReac Type Severity Reaction Status Date / Time No Known Allergies Allergy Verified 01/30/23 16:15 Consultations 01/30/23 16:53 ED Decision to Admit Stat 02/01/23 15:14 Consult Gastroenterology Routine 02/04/23 17:13 Consult Psychiatry Routine Procedures Performed Operation Date: 02/02/23 16:30 Actual Procedures p EGD Biopsy Cytology - Rick Toribio MD Ordered Studies 01/30/23 15:00 CT head/brain wo con Stat 01/30/23 15:36 CT angio chest PE protocol Stat 01/30/23 16:48 US gallbladder Stat Chest X-Ray 01/30/23 13:48 XR chest 1V portable HISTORY: weakness COMPARISON: Chest 11/12/2022. FINDINGS: The lungs are clear. Cardiac silhouette is normal in size. No pleural effusions. No pneumothorax. IMPRESSION: No acute process. ACT 112: Negative or not required by law. Electronically signed by: Forest Enamorado M.D. 01/30/2023 2:[address] 01/30/23 15:[address] DOSE: HISTORY: Head injury. fall TECHNIQUE: Multiaxial CT images of the head were performed without the use of intravenous contrast. Automated exposure control was utilized for this study. A dose lowering technique was utilized adhering to the principles of ALARA. Comparison: Head CT 11/12/2022. Findings: The paranasal sinuses and mastoid air cells are clear. The calvarium and skull base are intact. The ventricles and sulci are within normal limits. There is no mass, hematoma, midline shift, or acute infarct. Impression: No acute intracranial abnormality. ACT 112: Negative or not required by law. Electronically signed by: Forest Enamorado M.D. 01/30/2023 4:31 PM Chest CTA 01/30/23 15:36 CT ANGIOGRAM OF THE CHEST CLINICAL HISTORY: Fall. Generalized weakness. COMPARISON STUDY: Chest x-ray dated 01/30/2023. TECHNIQUE: Following the IV administration of 118 cc of Optiray 320, CT angiogram of the chest was performed from the upper abdomen to the thoracic inlet utilizing the pulmonary embolus protocol. Images are reviewed in the axial, sagittal, and coronal planes. 3-D MIPS images are created and assessed. IV contrast was administered without complication. A dose lowering technique was utilized adhering to the principles of ALARA. The examination is degraded by motion artifact. There is also streak artifact from the right arm which could no t be elevated above the chest. CT DOSE: 1467.94 mGy.cm FINDINGS: Thyroid: Imaged portions of the thyroid gland are normal in size and attenuation. Thoracic aorta: The thoracic aorta is normal in caliber and demonstrates bovine variant arch anatomy. No dissection is seen. Pulmonary vasculature: The pulmonary trunk is normal in caliber. There is subsegmental pulmonary embolus within branches of the left lower lobe pulmonary artery (axial image #136). Trace chronic pulmonary embolus is seen within the right middle lobe pulmonary artery on image #138. No additional pulmonary emboli are clearly identified. Evaluation of the peripheral branches is degraded by motion artifact. Heart: The heart is normal in size and without pericardial effusion. There are scattered coronary artery calcifications. Lungs and pleural spaces: Evaluation of the lung parenchyma is moderately degraded by motion artifact. There is no airspace consolidation, pleural effusion, or pneumothorax. The trachea and central airways are clear. A 3 mm right lower lobe nodule is seen image #122. Mediastinum: There is no mediastinal lymphadenopathy. Rosalba: Clear. Axillae: There is no axillary lymphadenopathy. Upper abdomen: The gallbladder appears normally distended and appears thick- walled. Question pericholecystic infiltration. There is a [id number] hiatal hernia. Skeletal structures: The bony thorax appears intact. No lytic or blastic bony lesions are seen. Arthritic change is seen in the shoulders, right greater than left. IMPRESSION: 1. Streak and motion compromised examination. 2. There is segmental pulmonary embolus within branches of the left lower lobe pulmonary artery. 3. Trace chronic thrombus is noted in the right middle lobe pulmonary artery. 4. There is no airspace consolidation or pleural effusion. 5. The gallbladder appears distended and mildly thick wall. Question pericholecystic infiltration. This is suboptimally assessed due to motion artifact. Correlate with clinical and laboratory findings there if there is clinical concern for acute cholecystitis right upper quadrant ultrasound should be obtained. 6. A 3 mm right lower lobe pulmonary nodules pathologically determined. If warranted this can be followed as per the Fleischner criteria below. 7. Additional findings as above. Please refer to below summary of Fleischner criteria recommendations for follow- up of incidental CT nodules (Sharmila Mondragon, Guidelines for management of small pulmonary nodules detected on CT scans: A statement from the Fleischner Society, Radiology 237: [phone].) SOLID NODULES Solitary nodule size: <6 mm * low risk patients: no follow-up needed * high risk patients: optional CT at 12 months Solitary nodule size: 6-8 mm * low risk patients: follow-up at 6-12 months, then consider further follow-up at 18-24 months * high risk patients: initial follow-up CT at 6-12 months and then at 18-24 months if no change Solitary nodule size: >8 mm * either low or high risk patients - consider follow-up CT at 3 months, and/or CT-PET, and/or biopsy Multiple nodules size: <6 mm * low risk patients: no routine follow-up * high risk patients: optional CT at 12 months Multiple nodules size: 6-8 mm * low risk patients: follow-up at 3-6 months, then consider further follow-up at 18-24 months * high risk patients: follow-up at 3-6 months, then at 18-24 months if no change Multiple nodules size: >8 mm * low risk patients: follow-up at 3-6 months, then consider further follow-up at 18-24 months * high risk patients: follow-up at 3-6 months, then at 18-24 months if no change Note: newly detected indeterminate nodule in persons 35 years of age or older. * low risk patients: minimal or absent history of smoking and/or other known risk factors * high risk patients: history of smoking or of other known risk factors (e.g. first degree relative with lung cancer, or exposure to asbestos, radon, uranium) * if a nodule up to 8 mm is partly solid or is ground glass further follow-up is required after 24 months to exclude possible slow growing adenocarcinoma ([place]) SUBSOLID NODULES Solitary pure ground-glass nodule * nodule size <6 mm - no CT follow-up required * nodule size >=6 mm - follow-up CT at 6-12 months, then every 2 years until 5 years Solitary part-solid nodule * nodule size <6 mm - no CT follow-up required * nodule size >=6 mm - follow-up CT at 3-6 months. If unchanged, and solid component remains <6 mm, then annual follow-up for 5 years Multiple subsolid nodules * nodule size <6 mm - follow-up CT at 3-6 months, consider further follow-up at 2 and 4 years if stable * nodule size >=6 mm - follow-up CT at 3-6 months, subsequent management based on the most suspicious nodule(s) ACT 112: Negative or not required by law. Electronically signed by: Anton Hoang M.D. 01/30/2023 4:36 PM Gallbladder Ultrasound 01/30/23 16:48 ABDOMINAL ULTRASOUND, RIGHT UPPER QUADRANT HISTORY: Generalized abdominal pain.. COMPARISON: None. FINDINGS: Pancreas: Obscured by overlying bowel gas. Liver: The liver is echogenic consistent with fatty change. 15 cm in length. No hepatic masses. Gallbladder: No gallstones identified. Mild diffuse gallbladder wall thickening measuring up to 6 mm. Punctate echogenic foci with ringdown artifact at the gallbladder fundus. This is consistent with adenomyomatosis. CBD: Borderline dilated measuring up to 6.6 mm. Right kidney: No hydronephrosis. IMPRESSION: 1. Mild diffuse gallbladder wall thickening. This is nonspecific and could be due to a diffuse edematous state, underlying hepatic pathology, or possibly a developing acute cholecystitis. However, there are no gallstones identified. Clinical correlation recommended. 2. Borderline dilated common bile measuring 6.6 mm. 3. Hepatic steatosis. ACT 112: Negative or not required by law. Electronically signed by: Forest Enamorado M.D. 01/30/2023 6:55 PM Hospital Course (1) Ambulatory dysfunction: (2) Pulmonary embolism: (3) Leukocytosis: (4) Folate deficiency: Plan Ambulatory dysfunction -Suspect combination of lorazepam and tramadol as driving factor for ambulatory dysfunction. Ativan prescribed for over 20 years, PCP has been working on taper for several month. -Possible benzodiazepine withdrawal, AWSS with lorazepam PRN. Had not received lorazepam since the ED. - increased anxiety/agitation concern for benzo withdrawal - complaining for insomnia- increase Seroquel to 100mg qhs -Thiamine 200mg IV TID for possible Wernicke's (noted Korsakoffs suspected during admission in October). -Tramadol stopped, advised against any further outpatient benzo prescriptions -PT/OT initially stated acute rehab after hospital admission. However patient improved during stay and will go home without any services. Pulmonary embolism -IV heparin during admission. -Decreased ambulation secondary to weakness for several weeks along with shortness of breath -Could consider immobilization as provocation for PE to guide length of period to anticoagulate. However, should consider possibility of pulmonary embolus being unprovoked. -Patient is hemoglobin stable at this time. Will transition from heparin to Eliquis on 02/06 at 2200. -Should continue with Eliquis 10 mg twice daily for 7 days and switch to 5 mg twice daily until further notice. Tachycardia - likely combination of PE, withdrawal and anemia - has been in sinus, continue to monitor on tele Anemia, Concern of Possible GI Bleed -Hgb dropped from 12.8 to 7.8 on 02/01. -Hemoglobin stable at this time. - Iron/ferritin low; Venofer x 2 doses-> we will give another 3 doses of Venofer as long as patient is admitted to the hospital. - currently receiving thiamine supplementation -Trend CBC, transfuse if <7 -FOBT positive, GI consulted -EGD completed, no active bleed. Samples taken for biopsy. -Continue Protonix Anxiety - history of anxiety, has tried multiple different mediations per chart review; SSRI, Wellbutrin-> Ativan stopped at likely few days prior to admission - farhat consulted, plan for OP elevation - Trial of duloxetine with hydroxyzine prn .Follow-up outpatient with psychiatry. Currently getting set up for outpatient psych services at this time Elevated troponin Very mildly elevated, downtrended. Leukocytosis No clear infection on exam. Diffuse gallbladder wall thickening on US and findings on CT do not correlate clinically with exam. Procalcitonin negative. Blood cultures with no growth. Continue to trend BPH (benign prostatic hyperplasia) -Continue tamsulosin and finasteride Total Time Total Time Spent Total Time Spent (In Minutes): <30 Discharge Plan Discharge Items Patient Disposition: Home - Self-Care Reason For Visit: PULMONARY EMBOLISM Discharge Diagnosis: Pulmonary embolus Activity: Resume your previous activity Non-emergency contact: Primary Care Provider Call non-emergency contact if: you have any medication questions, your pain is unusual for you and your temperature is above 101.5 Follow-up/Referrals: [facility] [Outside] - 02/20/23 8:45 am (In person appoinment. If you must cancel, please do so at least 24 hours prior to appoinment.) Lara Rosas [Primary Care Provider] - 02/16/23 12:45 pm (THIS APPOINTMENT WILL BE WITH DR GASPAR AT [address] [place] [address] OFFICE) Diet: Regular Addtl Attending Provider Instructions: You were admitted to the hospital for pulmonary embolism. You were treated with heparin and transition to Eliquis. A discharge summary will be sent to your primary care physician to ensure continuity of care. Please bring this discharge summary with you to your next office appointment so that your provider can review it at that time. Follow-up appointments: * You have appointment with your PCP Dr. Rosas on 02/16/2023 at 12:45 PM. Please call their office if you are unable to make this appointment. * You have an appointment with [facility] on 02/20/2023 at 8:45 AM. Please call their office if you are unable to make this appointment. * Keep all your follow-up appointments as already scheduled. If you cannot make an appointment, notify your provider. Medications: Your medication list has been reviewed and reconciled upon discharge to ensure accuracy and continuity of care. An updated list of all your medications is included with your hospital discharge paperwork. Please review this list closely, and make note of any changes. * We sent a new medication called Eliquis to your pharmacy. Take Eliquis 10 mg twice a day for the next 6 days. You will then continue on Eliquis 5 mg twice a day. * We sent in a new medication called duloxetine to your pharmacy. Take 30mg duloxetine every day. * We sent in a new medication called ferrous gluconate to your pharmacy. Take ferrous gluconate 240mg every other day. * We changed one of your medications. We sent quetiapine to your pharmacy. Take quetiapine 100mg every day. * If you have any issues filling these prescriptions, please call [phone] and ask to leave a message for Dr. Hinojosa. * Take your medications as instructed; do not skip a dose of your medicines. Make sure all of your doctors know every medicine you are taking (including dios-omm-hxjwbfs medicines, vitamins, and supplements). Call your primary care provider before taking any new medicines (including over- the-counter medicines, vitamins, and supplements), because some of these may interact with your current medications, or may make your symptoms worse. Tell your primary care provider if you cannot afford your medications. CONTACT YOUR PRIMARY CARE PROVIDER if you experience any of the following: * Worsening of symptoms * Fever, chills, or fatigue * Difficulty following your treatment plan, or difficulty taking medications CALL 911 OR GO TO THE EMERGENCY DEPARTMENT if you experience any of the following: * Sudden, severe abdominal pain or nausea/vomiting * Severe chest pain, or chest pain that radiates (moves) to your jaw or arm * Sudden, severe shortness of breath or difficulty breathing Thank you for allowing us to participate in your care. Pending Studies at Discharge: No Stand-Alone Forms: My [facility], Smoking Cessation Medications and DC Order Prescriptions: New quetiapine 100 mg Tablet 100 mg PO HS Qty: 30 0RF duloxetine 30 mg Capsule,Delayed Release(Dr/Ec) 30 mg PO QAM Qty: 30 0RF Eliquis 5 mg (74 tabs) tablets,dose pack 5 mg PO BID Qty: 74 0RF Rx Instructions: Eliquis 10 mg twice a day for the next 6 days. Then continue Eliquis 5 mg twice a day ferrous gluconate 240 mg (27 mg iron) tablet 240 mg PO Q2D Qty: 30 0RF Continued amlodipine 5 mg tablet 5 mg PO DAILY montelukast 10 mg tablet 10 mg PO DAILY folic acid 1 mg tablet 1 mg PO DAILY tamsulosin 0.4 mg capsule 0.8 mg PO DAILY Qty: 180 3RF finasteride [Proscar] 5 mg Tablet 5 mg PO QAM Qty: 30 2RF thiamine HCl (vitamin B1) [Vitamin B-1] 100 mg tablet 200 mg PO BID Men's Daily Gummies 200 mcg Tablet,Chewable 1 tab PO DAILY Discontinued quetiapine 50 mg tablet 50 mg PO HS tramadol 50 mg tablet 50 mg PO Q6H PRN (Reason: pain) Qty: 1 0RF Rx Instructions: please use sparingly if possible lorazepam 1 mg tablet 1 mg PO TID PRN (Reason: Unknown) Qty: 1 0RF Rx Instructions: please limit lorazepam to 3 times a day maximum. Discharge Orders: Discharge Order (Routine); Ordered 02/07/23 Ordered By: Anton Hinojosa Admission Data Admit Date/Time: 01/30/23 18:56 Attending Provider: Tobin Fernandez Admit Provider: Tulio Baltazar Primary Care Provider: Lara Rosas Other Providers: Rick Toribio ; Therese Morfin Other Interventions: Discharge Summary Assessment (RN) Last Done: 02/07/23 11:24 Supervising Physician Co-Signing Physician Notes I personally examined the patient and verified all yi points of history and exam, discussed case, and agree with decision making with Dr Hinojosa Feels up to going home, discussed outpatient plans.. Vitals noted, in general he is awake and alert pleasant no distress. Breathing unlabored no accessory muscle use good effort. Skin shows no rashes no pallor or icterus. Neuro without focal deficits. Weakness Initially was looking at rehab, fortunately doing too well. Safe to go home. PEanticoagulation. Given no significant/reversible provoking factors, would recommend indefinite anticoagulationafter 3 to 6 months, probably could reduce to prophylactic dosing. iron deficiency anemiaEGD reassuring, last colonoscopy about a year agonotes his diet is very poorpossibly just iron deficient from poor p.o. intakeIV iron replacement given here; continue with ongoing PO replacement, outpatient PCP and GI follow-up back painbiomechanicalwould probably benefit from outpatient OMT
[2023-02-07 08:01] LABS: Basophils # (auto) 0.05 K/uL (0-0.2); Basophils % (auto) 0.3 %; Eosinophils # (auto) 0.21 K/uL (0-0.50); Eosinophils % (auto) 1.4 %; Hematocrit (blood only) 26.9 % (42.0-52.0); Hemoglobin 8.4 g/dl (14.0-18.0); Immature Granulocytes # (auto) 0.63 K/uL (0.01-0.20); Immature Granulocytes % (auto) 4.3 %; Lymphocytes # (auto) 2.41 K/uL (1.2-3.4); Lymphocytes % (auto) 16.4 %; Mean Corpuscular Hemoglobin 28.8 pg (25.0-34.0); Mean Corpuscular Hgb Conc 31.2 g/dL (32.0-36.0); Mean Corpuscular Volume 92.1 fL (80.0-100.0); Mean Platelet Volume 9.6 fL (9.4-12.4); Monocytes # (auto) 1.15 K/uL (0.11-0.59); Monocytes % (auto) 7.8 %; Neutrophils # (auto) 10.26 K/uL (1.40-6.50); Neutrophils % (auto) 69.8 %; Nucleated RBC # (auto) 0.21 K/uL (0-0.12); Nucleated RBC % (auto) 1.4 %; Platelet Count 448 K/uL (130-400); RDW Coefficient of Variation 16.8 % (11.5-14.5); RDW Standard Deviation 52.7 fL (36.4-46.3); Red Blood Count 2.92 M/uL (4.70-6.10); White Blood Count 14.71 K/ul (4.8-10.8)
[2023-02-07] MEDS: POLYETHYLENE (MIRALAX) 17 GM PACK PO SCH (08:06)
[2023-02-07] MEDS: PANTOprazole 40 MG in SYRINGE 0 ML IV SCH (08:06)
[2023-02-07] MEDS: FINASTERIDE 5 MG TAB PO SCH (08:07)
[2023-02-07] MEDS: TAMSULOSIN HCL 0.4 MG CAP PO SCH (08:07)
[2023-02-07] MEDS: APIXABAN 5 MG TABLET PO SCH (08:07)
[2023-02-07] MEDS: amLODIPine BESYLATE 5 MG TAB PO SCH (08:08)
[2023-02-07] MEDS: DULoxetine HCL 30 MG CAP PO SCH (08:10)
[2023-02-07 08:12] LABS: BUN Creatinine Ratio 13.4 (10-20); Calcium 9.4 mg/dl (8.6-10.3); Creatinine Clr Calc Pharmacy 73.1 ml/min; Est GFR (African American) 97.9 ml/min; Est GFR (Non-African American) 84.5 ml/min; Potassium 4.1 mmol/L (3.5-5.1)
[2023-02-07] MEDS: THIAMINE HCL 200 MG in SODIUM CHLORIDE 0.9% 50 ML IV SCH (08:12)
[2023-02-07 08:44] LABS: Partial Thromboplastin Time 29.3 Seconds (21.0-31.0)
--- NOTE | 2023-02-07 18:29 | Billing Data ---
Date of Service February 07, 2023 Coding Level of Care Code 85748 IN/OBS DISCH 30 MIN/LESS
--- NOTE | 2023-02-08 13:20 | Coding Query ---
CODING QUERY To promote full compliance with coding requirements relating to patient care, provider participation is requested in all cases of ash handler uncertainty. Please assist us with the question(s) below: Coding Question(s): There is documentation of, "Thiamine 200mg IV TID for possible Wernicke's (noted Korsakoffs suspected during admission in October)" in the record and on Discharge Summary. Please clarify below, regarding Wernicke's: ( ) Wernicke's Disease or Syndrome, or Wernicke's Encephalopathy ( ) Wernicke's developmental aphasia ( ) Wernicke-Korsakoff's Syndrome or psychosis (alcoholic) ( ) Wernicke-Korsakoff's Syndrome or psychosis Nonalcoholic ( ) Wernicke-Korsakoff's Syndrome or psychosis due to Drug Abuse. Please specify drug: ( ) Wernicke-Korsakoff's Syndrome or psychosis due to Drug Dependence. Please specify drug: (x) they were considering wernicke-korsakoff due to alcohol/drug abuse but i don't think he truly had this as a dx Physician's Response(s): Thank you Sindhu Davey Principal Diagnosis: "that condition established after study, to be chiefly responsible for occasioning the admission of the patient to the hospital for care." Co-Existing Principal Diagnosis: "when two or more diagnoses equally meet the criteria for principal diagnosis as determined by the circumstances of admission, diagnostic work up, and/or therapy provided, and the Alphabetic Index, Tabular List, or another coding guideline does not provide sequencing direction, any one of the diagnoses may be sequenced first." "When the physician has documented what appears to be a current diagnosis in the body of the record, but has not included the diagnosis in the final diagnostic statement, the physician should be asked whether the diagnosis should be added." (Source Coding Clinic 2 QTR90. p3-4) MTDD
== END 2023-02-07 12:38 | disposition home or self-care (01) | DRG 175 ==
LOC: ED 13:23 → SUATTDRO 18:56 → 2W 18:56